=== PATIENT | female | born 1945 | race Caucasian/White ===

== ENCOUNTER 2020-02-24 15:16 | Emergency (ER) | payer MEDICARE, BC, SELFPAY ==
--- NOTE | 2020-02-24 15:21 | ED.GENADULT ---
HPI - General Adult General Chief complaint: Skin/Abscess/Foreign Body Stated complaint: rash Time Seen by Provider: 02/24/20 15:39 Source: patient Mode of arrival: ambulatory Limitations: no limitations History of Present Illness HPI narrative: 74-year-old female patient presents to the [facility] with complaints of a rash to the right side of her neck for the past 4 to 5 days. Patient states it is itchy. Patient states she has been out working in her yard a lot lately. Patient states that she does have some 2.5% cortisone cream that her doctor has prescribed her in the past that she has used patient states she also tried some Benadryl yesterday but it did make her very sleepy. Patient denies any fevers. Patient denies any pain to the site. Patient denies any blisters. Patient denies any chest pain, shortness of breath, swelling to the lips tongue or face. Patient denies any trouble swallowing. Related Data Home Medications Medication Instructions Recorded Confirmed cetirizine 10 mg tablet See Rx Instructions PO DAILY 11/25/19 cholecalciferol (vitamin D3) 50 2,000 unit PO DAILY 11/25/19 mcg (2,000 unit) capsule cromolyn 5.2 mg/spray (4 %) nasal See Rx Instructions .ROUTE .COMPLEX 11/25/19 spray fluticasone propionate 50 See Rx Instructions .ROUTE .COMPLEX 11/25/19 mcg/actuation nasal spray,suspension levothyroxine 75 mcg capsule 75 mcg PO DAILY 01/05/20 azelastine INTRANASAL 02/24/20 fluticasone furoate [Arnuity INHALATION 02/24/20 Ellipta] Allergies Allergy/AdvReac Type Severity Reaction Status Date / Time Cephalosporins Allergy Severe RASH Unverified 08/04/19 11:20 diclofenac Allergy Severe NAUSEA AND Unverified 08/04/19 11:20 VOMITING Penicillins Allergy Severe HIVES Unverified 08/04/19 11:20 azithromycin Allergy Unknown Unknown Verified 08/04/19 11:20 rifampin Allergy Unknown Hives Verified 08/04/19 11:20 Animal Dander Allergy Unknown Unknown Uncoded 08/04/19 11:20 AVALOX Allergy Unknown UNKNOWN Uncoded 08/04/19 11:20 DUST MITES Allergy Unknown Unknown Uncoded 08/04/19 11:20 Review of Systems Review of Systems: Narrative: CONSTITUTIONAL: Denies fever, chills, or sweats. EYES: Denies visual changes, redness, or discharge. ENT: Denies rhinorrhea, congestion, sore throat, or otalgia. CARDIOVASCULAR: Denies chest pain, palpitations, or edema. RESPIRATORY: Denies cough or dyspnea. GASTROINTESTINAL: Denies abdominal pain, nausea, vomiting, or diarrhea. GENITOURINARY: Denies dysuria or hematuria. SKIN: Positive rash with itching to right side of neck x4 to 5 days. MUSCULOSKELETAL: Denies back pain, joint pain, or myalgia. NEUROLOGIC: Denies headache, numbness, or weakness. PSYCHIATRIC: Denies anxiety or depression. [facility] Past Medical History Medical History Arthritis Diverticulitis Diverticulosis GERD (gastroesophageal reflux disease) Hypothyroid Right rotator cuff tear Tear of medial meniscus of left knee Surgical History Surgical History S/P right rotator cuff repair Status post breast reduction Family History Family History Father Family history of cardiovascular disease, Onset Age: 80 Social History Social History Smoking status: Never smoker Alcohol intake: current Gender identity (if verbalized by the patient): Female Comments At the time of my signature I agree with nursing past medical history, surgical, social, and family history. There is no relevant family history pertinent to the presenting complaint. Exam Narrative: Exam Narrative: GENERAL: Well-appearing, well-nourished, and in no acute distress. HEAD: Normocephalic, atraumatic. EYES: PERRLA and EOMI. ENT: Nares clear, no rhinorrhea or epistaxis. Mucous membranes moist. Pos
[2020-02-24 15:29] VITALS: BP 145/70; PULSE 78; RESP 18; TEMP 36.8; O2SAT 100
== END 2020-02-24 15:48 | disposition home or self-care (01) ==
PROVIDERS: Emergency Provider Nurse Practitioner Family; PCP Emergency Medicine
DX: S10.96XA Insect bite of unspecified part of neck, initial encounter (principal); L25.9 Unspecified contact dermatitis, unspecified cause; E03.9 Hypothyroidism, unspecified; W57.XXXA Bitten or stung by nonvenomous insect and other nonvenomous arthropods, initial encounter; K21.9 Gastro-esophageal reflux disease without esophagitis
CPT/HCPCS: 99211; G0463

== ENCOUNTER 2020-03-26 00:17 | Outpatient (CLI) | payer MEDICARE, BC, SELFPAY ==
[2020-03-26 20:58] LABS: SARS-CoV-2 RNA PCR Negative
== END 2020-03-26 00:18 | disposition home or self-care (01) ==
LOC: ANHCOVIDDT 00:17
PROVIDERS: PCP Emergency Medicine; Visit Provider Otolaryngology
DX: Z01.812 Encounter for preprocedural laboratory examination (principal); Z11.59 Encounter for screening for other viral diseases
CPT/HCPCS: 87635; 93005; C9803; U0003

== ENCOUNTER 2020-03-26 09:18 | Outpatient (CLI) | payer MEDICARE, BC, SELFPAY ==
--- NOTE | 2020-03-26 09:44 | ECG_ITS ---
Measurements Intervals Chapman Rate: 79 P: 76 MN: 181 QRS: 42 QRSD: 96 T: 62 QT: 371 QTc: 426 Interpretive Statements SINUS RHYTHM ATRIAL PREMATURE COMPLEX INCOMPLETE RIGHT BUNDLE BRANCH BLOCK LOW QRS VOLTAGE IN LIMB LEADS BASELINE ARTIFACT- II, III, AVL, AVF BORDERLINE ECG Electronically Signed On 03-26-2020 10:19:54 CDT by Venkata Lopez D.O.
== END 2020-03-26 09:19 | disposition home or self-care (01) ==
PROVIDERS: PCP Registered Nurse; Visit Provider Anesthesiology
DX: I10 Essential (primary) hypertension (principal); I45.10 Unspecified right bundle-branch block
CPT/HCPCS: 93005

== ENCOUNTER 2020-03-29 01:18 | Day surgery (SDC) | payer MEDICARE, BC, SELFPAY ==
[2020-03-24 15:51] VITALS: BMI 26.6
--- NOTE | 2020-03-28 16:10 | WPDANESEPP ---
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 Patient Data Age: 74 Gender: F Height: 1.47 m Weight: 57.7 kg Allergies Allergy/AdvReac Type Severity Reaction Status Date / Time Cephalosporins Allergy Severe RASH Unverified 03/24/20 15:33 diclofenac Allergy Severe NAUSEA AND Unverified 03/24/20 15:33 VOMITING Penicillins Allergy Severe HIVES Unverified 03/24/20 15:33 azithromycin Allergy Unknown Rash Verified 03/24/20 15:33 rifampin Allergy Unknown Hives Verified 03/24/20 15:33 Animal Dander Allergy Unknown Sneezing Uncoded 03/24/20 15:33 AVALOX Allergy Unknown Rash Uncoded 03/24/20 15:33 DUST MITES Allergy Unknown Sneezing Uncoded 03/24/20 15:33 Home Medications Medication Instructions Recorded Confirmed Type levothyroxine 75 mcg capsule 75 mcg PO DAILY 01/05/20 03/24/20 History Xyzal 1 tab-cap PRN PRN 02/24/20 03/24/20 History fluticasone furoate [Arnuity 2 inh INHALATION DAILY 02/24/20 03/24/20 History Ellipta] lisinopril 10 mg PO DAILY 03/24/20 03/24/20 History omeprazole 40 mg PO DAILY 03/24/20 03/24/20 History psyllium husk [Metamucil] 1 tbsp PO DAILY 03/24/20 03/24/20 History Patient hx anesthesia problems: none Family hx anesthesia problems: none PMFSH Past Medical History Medical History Arthritis Diverticulitis Diverticulosis GERD (gastroesophageal reflux disease) Hypothyroid Right rotator cuff tear Tear of medial meniscus of left knee Surgical History Surgical History History of hysterectomy S/P right rotator cuff repair Status post breast reduction Family History Family History Father Family history of cardiovascular disease, Onset Age: 80 Social History Social History Smoking status: Never smoker Alcohol intake: current Gender identity (if verbalized by the patient): Female Exam Day of Procedure 03/28/20 16:10
[2020-03-29] VITALS (8 sets, daily range): BP systolic 97–163; BP diastolic 43–75; PULSE 57–79; RESP 14–18; TEMP 35.9–36.1; O2SAT 97–100
--- NOTE | 2020-03-29 06:55 | WPDANESEPPF ---
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 Patient Data Age: 74 Gender: F Height: 4 ft 10 in Weight: 57.7 kg Allergies Allergy/AdvReac Type Severity Reaction Status Date / Time Cephalosporins Allergy Severe RASH Unverified 03/24/20 15:33 diclofenac Allergy Severe NAUSEA AND Unverified 03/24/20 15:33 VOMITING Penicillins Allergy Severe HIVES Unverified 03/24/20 15:33 azithromycin Allergy Unknown Rash Verified 03/24/20 15:33 moxifloxacin [From Avelox] Allergy Unknown Rash Verified 03/29/20 06:53 rifampin Allergy Unknown Hives Verified 03/24/20 15:33 Animal Dander Allergy Unknown Sneezing Uncoded 03/24/20 15:33 DUST MITES Allergy Unknown Sneezing Uncoded 03/24/20 15:33 Home Medications Medication Instructions Recorded Confirmed Type levothyroxine 75 mcg capsule 75 mcg PO DAILY 01/05/20 03/24/20 History Xyzal 1 tab-cap PRN PRN 02/24/20 03/24/20 History fluticasone furoate [Arnuity 2 inh INHALATION DAILY 02/24/20 03/24/20 History Ellipta] lisinopril 10 mg PO DAILY 03/24/20 03/24/20 History omeprazole 40 mg PO DAILY 03/24/20 03/24/20 History psyllium husk [Metamucil] 1 tbsp PO DAILY 03/24/20 03/24/20 History Patient hx anesthesia problems: none Family hx anesthesia problems: none PMFSH Past Medical History Medical History Arthritis Diverticulitis Diverticulosis GERD (gastroesophageal reflux disease) Hypothyroid Right rotator cuff tear Tear of medial meniscus of left knee Surgical History Surgical History History of hysterectomy S/P right rotator cuff repair Status post breast reduction Family History Family History Father Family history of cardiovascular disease, Onset Age: 80 Social History Social History Smoking status: Never smoker Alcohol intake: current Gender identity (if verbalized by the patient): Female Anes - Eval Final PreProcedure Day of Procedure 03/29/20 06:55 Patient weight: overweight Heart: regular rate and rhythm Lungs: clear to auscultation Airway: Mallampati scale class II Neurological: alert and oriented Last oral intake: >/= 8 hours ASA classification: III Emergent: no Anesthetic plan: proceed Anesthesia type and monitoring: general ETT and standard monitoring Informed Consent: The patient's anesthetic plan and its attendant risks and benefits were discussed with the patient/family/POA. Questions were solicited and answers provided to the satisfaction of the patient/family/POA.
--- NOTE | 2020-03-29 07:20 | WPDHPUPDATE1 ---
History and Physical Update Update Date/Time: 03/29/20 07:20 History and Physical has been reviewed, including an updated exam of the patient. There are NO changes in the patient's condition. Risks, benefits, and alternatives have been discussed and questions answered. Patient agrees to proceed with procedure.
--- NOTE | 2020-03-29 07:55 | PM.PROC ---
Procedure Note - Detailed Date of procedure: 03/29/20 Pre-op diagnosis: Neoplasm Of The Tongue Post-op diagnosis: same Procedure performed: Direct laryngoscopy with biopsy Description of procedure: After consent was obtained, patient was brought to the OR and placed under GETA. Timeout performed verifying correct pt identity and procedure. Bed rotated 90 degrees and she was draped in standard fashion. An upper tooth guard was placed. A dido laryngoscope was inserted and the full upper airway was visualized and examined. The cystic lesion was seen at the right lateral oropharyngeal wall, just inferior to the tonsil. No other lesions noted. Approximate 1.5cm in diameter. The cyst was grasped, retracted laterally and scissors used to undermine and cut it away from surrounding tissue. Minimal bleeding. Once specimen removed in its entireity, care of patient returned to anesthesia for extubation and transfer to PACU for recovery. No complications. Anesthesia: GETA Surgeon: Eliu Mandujano MD Software Engineering Supervisor: 5 Drains: No Packing: No Pathology: yes (right oropharyngeal lesion) Complications: No immediate complications Condition: stable Disposition: same day Findings: 1.5cm cystic right oropharyngeal mass just inferior to tonsil
[2020-03-29] MEDS: LACTATED RINGERS 1,000 ML 30 ML IV CONT (07:59)
== END 2020-03-29 09:55 | disposition home or self-care (01) ==
PROVIDERS: PCP Registered Nurse; Visit Provider Otolaryngology
PROC: 0CJS8ZZ Inspection of Larynx, Via Natural or Artificial Opening Endoscopic (ICD-10-PCS; CPT 31535; principal; 2020-03-29 07:30)
DX: K13.79 Other lesions of oral mucosa (principal); E03.9 Hypothyroidism, unspecified; K21.9 Gastro-esophageal reflux disease without esophagitis; M19.90 Unspecified osteoarthritis, unspecified site
CPT/HCPCS: 31535; 88305; A9270; J0330; J2590; J2704; J3010; J7120

== ENCOUNTER 2020-05-05 11:12 | Outpatient (CLI) | payer MEDICARE, BC, SELFPAY ==
--- NOTE | ~2020-05-05 | US_ITS ---
EXAMINATION: US thyroid EXAM DATE: 05/05/2020 11:47 INDICATION: Enlarged thyroid. TECHNIQUE: Multiple grayscale and Doppler images of the thyroid were obtained (by a technologist who performed the scan) and subsequently reviewed. Individual nodules and recommendations may be reporte d in accordance with TI-RADS system as designated by the 2017 ACR White Paper TI-RADS committee. The re is no prior study for comparison. FINDINGS: The right thyroid lobe measures 2.0 x 0.5 x 0.9 cm, the left thyroid lobe measures 1.8 x 0.5 x 0.8 cm with homogeneous echogenicity. No focal nodule identified. IMPRESSION: Small thyroid. Reviewed, dictated and finalized at location A. IMPRESSION: Small thyroid.
== END 2020-05-05 11:13 | disposition home or self-care (01) ==
LOC: ANHIMG 11:21
PROVIDERS: PCP Registered Nurse; Visit Provider Registered Nurse
DX: E04.9 Nontoxic goiter, unspecified (principal)
CPT/HCPCS: 76536

== ENCOUNTER 2020-05-08 16:30 | Emergency (ER) | payer MEDICARE, BC, SELFPAY ==
[2020-05-08 16:43] VITALS: BP 148/86; PULSE 86; RESP 18; TEMP 36.9; O2SAT 99
--- NOTE | 2020-05-08 16:51 | ED.EYEPROB ---
HPI - Eye Problem General Chief complaint: Eye Problems Stated complaint: eye problems Time Seen by Provider: 05/08/20 16:51 Source: patient Mode of arrival: ambulatory Limitations: no limitations History of Present Illness HPI Narrative: Gauri Bill is a 74 yo female with a PMH of hypothyroid, HTN, GERD, who comes to express care for concern of scratch of L eye. Blackberry branch hit her in the eye yesterday and although she has no pain redness or discharge read on the Internet that could get infected and cause problems particular since she is had cataract surgery patient is here to get antibiotic for her eyes until she can get into see her musculoskeletal physiotherapist on Sunday or Sunday Related Data Home Medications Medication Instructions Recorded Confirmed Xyzal 1 tab-cap PRN PRN 02/24/20 03/29/20 Metamucil 1 tbsp PO DAILY 03/24/20 03/29/20 lisinopril 10 mg PO DAILY 03/24/20 03/29/20 omeprazole 40 mg PO DAILY 03/24/20 03/29/20 cholecalciferol (vitamin D3) 25 mcg PO DAILY 05/08/20 05/08/20 [Vitamin D3] fluticasone propionate [Flonase INTRANASAL 05/08/20 Allergy Relief] levothyroxine 05/08/20 omeprazole 40 mg PO DAILY 05/08/20 05/08/20 Allergies Allergy/AdvReac Type Severity Reaction Status Date / Time Cephalosporins Allergy Severe RASH Verified 05/08/20 16:47 diclofenac Allergy Severe NAUSEA AND Verified 05/08/20 16:47 VOMITING Penicillins Allergy Severe HIVES Verified 05/08/20 16:47 azithromycin Allergy Unknown Rash Verified 05/08/20 16:47 moxifloxacin [From Avelox] Allergy Unknown Rash Verified 05/08/20 16:47 rifampin Allergy Unknown Hives Verified 05/08/20 16:47 Animal Dander Allergy Unknown Sneezing Uncoded 05/08/20 16:47 DUST MITES Allergy Unknown Sneezing Uncoded 05/08/20 16:47 Review of Systems Review of Systems: Narrative: CONSTITUTIONAL: Denies fever, chills, sweats. EYES: Denies visual changes, redness, discharge. There is no redness pain or discharge but concern by patient about her prior cataract surgery ENT: Denies rhinorrhea, congestion, sore throat, otalgia. CARDIOVASCULAR: Denies chest pain, palpitations, edema. RESPIRATORY: Denies dyspnea, wheezing, cough GASTROINTESTINAL: Denies abdominal pain, nausea, vomiting, diarrhea. GENITOURINARY: Denies dysuria, hematuria, abnormal discharge SKIN: Denies rash or itching. NEUROLOGIC: Denies numbness, or focal weakness. PSYCHIATRIC: Denies anxiety or depression. [facility] Past Medical History Medical History Arthritis Diverticulitis Diverticulosis GERD (gastroesophageal reflux disease) Hypothyroid Right rotator cuff tear Tear of medial meniscus of left knee Surgical History Surgical History History of hysterectomy S/P right rotator cuff repair Status post breast reduction Family History Family History Father Family history of cardiovascular disease, Onset Age: 80 Social History Social History Smoking status: Never smoker Alcohol intake: current Gender identity (if verbalized by the patient): Female Comments At time of signature, I agree with nursing past medical, surgical, social and family history. There is no relevant family history pertinent to the presenting complaint. Exam Narrative: Exam Narrative: GENERAL: This is a well-nourished, well-developed patient, in mild distress. HEAD: normocephalic, atraumatic. EYES: PERRL. Sclera clear/white. Vision is grossly intact. No injection of the left eye no discharge noted, no photophobia EARS: External ears normal, Hearing grossly intact. NOSE: External nose normal without nasal discharge, nares without redness, no rhinorrhea. THROAT: Mucous membranes moist, NECK: Neck supple, CARDIOVASCULAR: Regular rate and rhythm without murmurs, gallops, or rubs. RESPIRAT
== END 2020-05-08 17:10 | disposition home or self-care (01) ==
PROVIDERS: Emergency Provider Nurse Practitioner; PCP Registered Nurse
DX: S05.92XA Unspecified injury of left eye and orbit, initial encounter (principal); W22.8XXA Striking against or struck by other objects, initial encounter; M19.90 Unspecified osteoarthritis, unspecified site; K21.9 Gastro-esophageal reflux disease without esophagitis; E03.9 Hypothyroidism, unspecified
CPT/HCPCS: 99213; A9270; G0463

== ENCOUNTER → 2020-05-24 10:10 | Outpatient (CLI) | payer MEDICARE, BC, SELFPAY ==
--- NOTE | ~2020-05-24 | DEXA_ITS ---
Bone Density Report Name: Gauri Bill Age: 74 Sex: Female Ethnicity: White Date of : 1945 Indication: osteopenia; height loss; hysterectomy; postmenopausal Referring Provider: Loraine, Kyleigh Study: Bone densitometry was performed. Exam Date: May 24, 2020 Accession number: [id number] Bone Density: Region BMD T-score Z-score Classification AP Spine (L2, L3, L4) 0.859 -2.0 0.6 Osteopenia Femoral Neck (Left) 0.652 -1.8 0.4 Osteopenia Total Hip (Left) 0.764 -1.5 0.4 Osteopenia Femoral Neck (Right) 0.674 -1.6 0.6 Osteopenia Total Hip (Right) 0.752 -1.6 0.3 Osteopenia Total Hip Mean 0.758 -1.6 0.4 Osteopenia World Health Organization criteria for BMD impression classify patients as: Normal (T-score at or above -1.0), Osteopenia (T-score between -1.0 and -2.5), or Osteoporosis (T-score at or below -2.5). 10-year Fracture Risk(1): Major Osteoporotic Fracture 13% Hip Fracture 3.1% Reported Risk Factors: [place] (), Neck BMD=0.652, BMI=25.6 (1) FRAX(R) Version 3.08. Fracture probability calculated for an untreated patient. Fracture probability may be lower if the patient has received treatment. Previous Exams: Region Exam Age BMD T-score BMD Change BMD Change Date g/cm2 vs Baseline vs Previous AP Spine(L2, L3, L4) 05/24/2020 74 0.859 -2.0 -0.003 -0.003 01/25/2018 72 0.862 -2.0 Total Hip(Left) 05/24/2020 74 0.764 -1.5 -0.022 -0.022 01/25/2018 72 0.786 -1.3 Total Hip(Right) 05/24/2020 74 0.752 -1.6 -0.034* -0.034* 01/25/2018 72 0.786 -1.3 *Denotes significance at 95% confidence level, LSC for AP Spine = 0.022 g/cm2, LSC for Total Hip = 0.027 g/cm2 Clinical Information Provided by Patient: Has used the following medications: Vitamin D Has the following medical conditions: Hysterectomy Patient maximum height was 61.5 Menopause Age: 44 No regular weight bearing exercise Drinks caffeinated beverages Onset of menses at age 12 Number of children 1 Impression: The patient has low bone mass, based on the Total Spine T-score. The patient has an estimated ten-year risk of hip fracture of 3.1% and an estimated ten-year risk of major fracture of 13%, based on the WHO FRAX algorithm. The BMD for the Total Hip(Right) decreased, changing by -0.034 since the last DXA exam. Discussion: BONE DENSITY IS LOW AT ONE OR MORE SKELETAL SITES. THE PATIENT'S BM
== END ==
PROVIDERS: PCP Registered Nurse; Visit Provider Registered Nurse
DX: Z78.0 Asymptomatic menopausal state (principal); M85.88 Other specified disorders of bone density and structure, other site; M85.852 Other specified disorders of bone density and structure, left thigh; M85.851 Other specified disorders of bone density and structure, right thigh
CPT/HCPCS: 77080

== ENCOUNTER 2020-07-13 09:30 | Outpatient (CLI) | payer MEDICARE, BC, SELFPAY ==
--- NOTE | ~2020-07-13 | MM_ITS ---
EXAMINATION: MM screening claudine BI w cristel HISTORY: Screening TECHNIQUE: Craniocaudal and mediolateral oblique 3-D tomosynthesis images were obtained and synthetic 2-D images were generated. CAD analysis was submitted and interpreted. COMPARISON: No prior mammogram is available for comparison at this institution. BREAST PARENCHYMAL COMPOSITION: There are scattered areas of fibroglandular density. FINDINGS: There is no evidence of suspicious mass, calcification, or architectural distortion to sugg est malignancy in either breast. There has been no suspicious interval change. IMPRESSION: 1. No mammographic evidence of malignancy. 2. Recommend routine screening mammography in one year. BI-RADS Category 1: Negative Reviewed, dictated and finalized at location A.
== END 2020-07-13 09:31 | disposition home or self-care (01) ==
LOC: ANHIMG 09:37
PROVIDERS: PCP Registered Nurse; Visit Provider Registered Nurse
DX: Z12.31 Encounter for screening mammogram for malignant neoplasm of breast (principal)
CPT/HCPCS: 77063; 77067

== ENCOUNTER 2020-08-21 11:43 | Outpatient (NON) | payer MEDICARE, BC, SELFPAY ==
[2020-08-22 22:24] LABS: SARS-CoV-2 RNA PCR Negative
== END 2020-08-21 11:44 ==
LOC: ANHCOVIDDT 11:45
PROVIDERS: PCP Registered Nurse; Visit Provider Registered Nurse
DX: R05 Cough (principal); J02.9 Acute pharyngitis, unspecified; R51.9 Headache, unspecified; R09.81 Nasal congestion; Z20.828 Contact with and (suspected) exposure to other viral communicable diseases
CPT/HCPCS: 87635; C9803; U0003

== ENCOUNTER 2022-01-16 07:34 | Outpatient (CLI) | payer MEDICARE, BC, SELFPAY ==
--- NOTE | ~2022-01-16 | CT_ITS ---
EXAMINATION: CT abdomen pelvis w con DATE: 01/16/2022 08:27 INDICATION: Left lower quadrant abdominal pain. Diverticulosis. TECHNIQUE: Computed tomography (CT) of the abdomen and pelvis was performed with 100 mL Omnipaque-350 intravenous contrast. Automated exposure control and iterative reconstruction technique were employe d. The dose-length product was 336.52 mGy-cm. COMPARISON: 08/04/2019 FINDINGS: Lung bases are clear. Heart size is normal. No pericardial or pleural effusion. Liver, gallbladder, p ancreas, bilateral adrenal glands and kidneys are normal. Multiple splenic calcific lesions consisten t with old granulomatous disease. There is moderate colonic diverticulosis with sigmoid and descendin g colon predominance. There appear to be a few foci of gas within the fat along the margins of the di verticulum at the distal sigmoid colon and could not exclude diverticulitis with microperforation alt zac there is no significant surrounding inflammatory stranding to more specifically suggest this. N ormal appendix. No bowel obstruction. Bladder is normal. The uterus is not identified and has likely been surgically resected. No abscess or free intraperitoneal gas or fluid. No pathologically enlarged abdominal or pelvic lymphadenopathy. Lumbar levoscoliosis with severe spondylosis. IMPRESSION: 1. Moderate diverticulosis with possible diverticulitis with minimal potentially extraluminal gas rel ated to microperforation along a diverticulum at the distal sigmoid colon but without evident inflamm atory stranding or abscess. Reviewed, dictated and finalized at location A. IMPRESSION: 1. Moderate diverticulosis with possible diverticulitis with minimal potentiall y extraluminal gas related to microperforation along a diverticulum at the dist al sigmoid colon but without evident inflammatory stranding or abscess.
[2022-01-16 08:19] LABS: Estimated Glomerular Filt Rate > 60
== END 2022-01-16 07:35 | disposition home or self-care (01) ==
PROVIDERS: PCP Registered Nurse; Visit Provider Registered Nurse
DX: R10.32 Left lower quadrant pain (principal); K57.90 Diverticulosis of intestine, part unspecified, without perforation or abscess without bleeding; D73.9 Disease of spleen, unspecified; K57.30 Diverticulosis of large intestine without perforation or abscess without bleeding; M47.816 Spondylosis without myelopathy or radiculopathy, lumbar region; M41.9 Scoliosis, unspecified
CPT/HCPCS: 74177; Q9967

== ENCOUNTER 2022-03-24 14:56 | Emergency (ER) | payer MEDICARE, BC, SELFPAY ==
--- NOTE | ~2022-03-24 | XR_ITS ---
XR chest 2V DATE: 03/24/2022 15:31 INDICATION: Cough for 10 days TECHNIQUE: 2 views COMPARISON: 03/05/2012 two-view chest FINDINGS: Normal heart size. No hilar or mediastinal enlargement. 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 No pulmonary infiltrate or consolidation, pleural effusion or pulmonary vascular congestion or pneumo thorax. Diffuse osteopenia. IMPRESSION: No active cardiopulmonary disease Reviewed, dictated and finalized at location A.
[2022-03-24 15:05] VITALS: BP 154/65; PULSE 79; RESP 18; TEMP 37.4; O2SAT 100
--- NOTE | 2022-03-24 15:13 | ED.URI ---
HPI - URI/Sore Throat General Chief Complaint: Upper Respiratory Infection Stated Complaint: uri Time Seen by Provider: 03/24/22 15:13 Source: patient, RN notes reviewed and old records reviewed Mode of arrival: ambulatory Limitations: no limitations History of Present Illness HPI Narrative: 76-year-old female presents to the [facility] with complaints of an upper respiratory infection. Patient reports she has had a cough for the last 10 days. Has been taking Zyrtec and Tylenol. Denies fevers. Denies chest pain or extremity swelling. Related Data Home Medications Medication Instructions Recorded Confirmed psyllium husk 3.4 gram/5.4 gram 1 tbsp PO BID 03/24/20 03/24/22 oral powder (Metamucil) cholecalciferol (vitamin D3) 25 25 mcg PO DAILY 05/08/20 03/24/22 mcg (1,000 unit) tablet (Vitamin D3) levothyroxine 50 mcg tablet 50 mcg PO DAILY 05/08/20 03/24/22 azelastine-fluticasone 137 mcg-50 1 spray intranasal BID 02/21/22 03/24/22 mcg/spray nasal spray cetirizine 10 mg tablet (Zyrtec) 10 mg PO DAILY PRN allergies 02/21/22 03/24/22 multivitamin 1 tablet PO DAILY 02/21/22 03/24/22 losartan 25 mg tablet 25 mg PO DAILY 03/06/22 03/24/22 Allergies Allergy/AdvReac Type Severity Reaction Status Date / Time Cephalosporins Allergy Severe RASH Verified 02/21/22 10:03 azithromycin Allergy Unknown Rash Verified 02/21/22 10:03 rifampin Allergy Unknown Hives Verified 02/21/22 10:03 metronidazole AdvReac Diarrhea Verified 03/06/22 13:43 Animal Dander Allergy Unknown Sneezing Uncoded 05/08/20 16:47 DUST MITES Allergy Unknown Sneezing Uncoded 05/08/20 16:47 Review of Systems Review of Systems: All systems reviewed & are unremarkable except as noted in HPI and below Constitutional: Constitutional: Reports no additional constitutional complaints, Denies chills and Denies fever(s) Eyes: Eyes: Reports no additional eye complaints ENT: Reports system reviewed and no additional complaints, except as documented Cardiovascular: Cardiovascular: Reports no additional cardiovascular complaints Respiratory: Respiratory: Reports as per HPI, Reports chest congestion, Reports cough, Denies dyspnea and Denies wheezing Gastrointestinal: Gastrointestinal: Reports no additional gastrointestinal complaints Musculoskeletal: Musculoskeletal: Reports no additional musculoskeletal complaints Integumentary/Breasts: Skin/Breast: Reports system reviewed and no additional complaints, except as docu Neurologic: Reports system reviewed and no additional complaints, except as documented Psychiatric: Psychiatric: Reports no additional psychiatric complaints Allergic/Immunologic: Allergic/Immunologic: Reports no additional allergic/immunologic complaints PMFSH Past Medical History Medical History Arthritis Diverticulitis Diverticulosis GERD (gastroesophageal reflux disease) Hypothyroid Right rotator cuff tear Tear of medial meniscus of left knee Surgical History Surgical History History of hysterectomy S/P right rotator cuff repair Status post breast reduction Family History Family History Father Family history of cardiovascular disease, Onset Age: 80 Social History Social History Smoking status: Never smoker Alcohol intake: current Drinks per week: 1 Substance use: never Gender identity (if verbalized by the patient): Female Spiritual care concerns: No Comments At the time of my signature, I reviewed and agree with the nursing past medical, surgical, social, and family history. There is no relevant family history pertinent to the patient complaint. Exam Const: General: healthy appearing, no acute distress and alert Nutritional Appearance: well nourished Orientation/consciousness: [place]
== END 2022-03-24 16:03 | disposition home or self-care (01) ==
PROVIDERS: Emergency Provider Nurse Practitioner; PCP Registered Nurse
DX: J40 Bronchitis, not specified as acute or chronic (principal); M19.90 Unspecified osteoarthritis, unspecified site; K21.9 Gastro-esophageal reflux disease without esophagitis; E03.9 Hypothyroidism, unspecified
CPT/HCPCS: 71046; 99213; G0463

== ENCOUNTER 2022-09-20 09:51 | Outpatient (CLI) | payer MEDICARE, BC, SELFPAY ==
--- NOTE | ~2022-09-20 | DEXA_ITS ---
Bone Density Report Name: CHAD JAMES Age: 77 Sex: Female Ethnicity: White Date of : 1945 Indication: postmenopausal; screening for osteoporosis; height loss; hysterectomy; rheumatoid arthritis; Referring Provider: NEAL, ANUPAM Study: Bone densitometry was performed. Exam Date: September 20, 2022 Accession number: [id number] Bone Density: Region BMD T-score Z-score Classification AP Spine(L2, L3, L4) 0.824 -2.3 0.4 Osteopenia Femoral Neck (Left) 0.299 -5.0 -2.7 Osteoporosis Total Hip (Left) 0.391 -4.5 -2.5 Osteoporosis Femoral Neck (Right) 0.698 -1.4 0.9 Osteopenia Total Hip (Right) 0.751 -1.6 0.4 Osteopenia Total Hip Mean 0.571 -3.1 -1.1 Osteoporosis World Health Organization criteria for BMD impression classify patients as: Normal (T-score at or above -1.0), Osteopenia (T-score between -1.0 and -2.5), or Osteoporosis (T-score at or below -2.5). 10-year Fracture Risk: FRAX not reported because: Some T-score for Spine Total or Hip Total or Femoral Neck at or below -2.5 Clinical Information Provided by Patient: Has rheumatoid arthritis Has used the following medications: Vitamin D, Calcium Has the following medical conditions: Hysterectomy Patient maximum height was 61 Menopause Age: 46 Drinks caffeinated beverages Onset of menses at age 10 Number of children 1 Impression: The patient has osteoporosis, based on the Left Femoral Neck T-score. Discussion: HIGH RISK OF FRACTURE. BONE DENSITY IS UNDESIRABLY LOW AT ONE OR MORE SKELETAL SITES, CONSISTENT WITH OSTEOPOROSIS. ALSO, BONE DENSITY IS LOWER THAN EXPECTED FOR AGE AND SEX AT ONE OR MORE SKELETAL SITES; RECOMMEND A DILIGENT SEARCH FOR SECONDARY CAUSES OF BONE LOSS. This patient's lowest T-score meets the World Health Organization's (WHO) criteria for osteoporosis at one or more sites (T-score -2.5 or below). In untreated patients, the risk of osteoporotic fracture increases approximately two-fold for each 1.0 SD decrease in T-score. Low bone density is not the only risk factor for fracture; also consider factors such as patient's age, frailty or poor health, risk of falling, risk of injury, previous osteoporotic fracture, family history of osteoporosis, cigarette smoking, low body weight, etc. Not everyone with low bone mineral density has osteoporosis; osteomalacia and other metabolic bone disorders should also be considered. Patients who have osteoporosis should be evaluated for specific diseases and conditions (secondary causes) that may cause or contribute to bone loss. The [place] [employer]ocrin[employer] (AACE) and National Osteoporosis Foundation (NOF) recommend pharmacologic intervention for all postmenopausal women whose T-score is in this range. Also, this patient's bone mineral density is below the range co
== END 2022-09-20 09:52 | disposition home or self-care (01) ==
LOC: ANHIMG 09:55
PROVIDERS: PCP Registered Nurse; Visit Provider Registered Nurse
DX: M85.88 Other specified disorders of bone density and structure, other site (principal); M81.0 Age-related osteoporosis without current pathological fracture; M85.851 Other specified disorders of bone density and structure, right thigh
CPT/HCPCS: 77080

== ENCOUNTER → 2022-09-21 11:05 | Outpatient (CLI) | payer MEDICARE, BC, SELFPAY ==
--- NOTE | ~2022-09-21 | MR_ITS ---
EXAMINATION: MR knee RT wo con DATE: 09/21/2022 11:48 INDICATION: Right knee pain TECHNIQUE: Magnetic resonance imaging (MRI) of the right knee was performed without intravenous contr ast. Sequences included coronal PD-weighted FSE, coronal PD-weighted FS FSE, sagittal T2-weighted FS E, sagittal PD-weighted FS FSE and axial PD weighted fat saturated FSE. COMPARISON: None. FINDINGS: Medial compartment: Medial meniscus is normal. Articular cartilage is normal. Lateral compartment: Longitudinal horizontal tear extending to the free edge at the body of the lateral meniscus. Addition al small complex tear at the medial side of the posterior horn. Articular cartilage is normal. Patellofemoral compartment: Articular cartilage is normal. Ligaments and tendons: Anterior and posterior cruciate ligaments are normal. The medial collateral ligament and fibular jeremy ateral ligament complex are normal. The extensor mechanism is normal. The visualized medial and later al hamstring tendons as well as the iliotibial band are normal. There is however mild increased fluid signal the fat situated between the iliotibial band and the lateral margin of the lateral femoral co ndyle which can be seen with iliotibial band friction syndrome. Fluid: Physiologic amount of fluid in the joint space. No loose osteochondral bodies identified. Osseous/other: Normal marrow signal. No fracture or pathologic marrow replacing process. IMPRESSION: 1. Lateral meniscal tear, horizontal at the body and complex at the medial side of the posterior horn . 2. Edema underlying the distal iliotibial band which can be seen with iliotibial band friction syndro me. Reviewed, dictated and finalized at location [facility] [employer] IMPRESSION: 1. Lateral meniscal tear, horizontal at the body and complex at the medial side of the posterior horn. 2. Edema underlying the distal iliotibial band which can be seen with iliotibia l band friction syndrome.
== END ==
PROVIDERS: PCP Registered Nurse; Visit Provider Orthopaedic Surgery
DX: S83.281A Other tear of lateral meniscus, current injury, right knee, initial encounter (principal); S83.231A Complex tear of medial meniscus, current injury, right knee, initial encounter; X58.XXXA Exposure to other specified factors, initial encounter
CPT/HCPCS: 73721

== ENCOUNTER 2023-03-28 09:31 | Emergency (ER) | payer MEDICARE, BC, SELFPAY ==
--- NOTE | 2023-03-28 09:36 | ED.EYEPROB ---
HPI - Eye Problem General Chief complaint: Eye Problems Stated complaint: Left eye injury Time Seen by Provider: 03/28/23 09:56 Source: patient and RN notes reviewed Mode of arrival: ambulatory Limitations: no limitations History of Present Illness HPI Narrative: 77-year-old female presents with concern to injury of her left eye. Reports on Sunday she got poked in the eye with a plan to when she was working in the yd. She reports pain, redness, watery drainage. She denies vision changes. She reports slight redness. Reports pain is currently a 5/10, it was less this morning. chief complaint: eye pain Related Data Home Medications Medication Instructions Recorded Confirmed levothyroxine 50 mcg tablet 50 mcg PO DAILY 05/08/20 03/28/23 cetirizine 10 mg tablet (Zyrtec) 10 mg PO DAILY PRN allergies 02/21/22 03/28/23 multivitamin 1 tablet PO DAILY 02/21/22 03/28/23 losartan 25 mg tablet 25 mg PO DAILY 03/06/22 03/28/23 alendronate 70 mg tablet 70 mg PO WEEKLY 11/02/22 03/28/23 calcium carbonate 600 mg calcium 600 mg PO BID 11/02/22 03/28/23 (1,500 mg) tablet (Calcium) wjkrhjrd-lao-gbyqa acid 0.4 1 tablet PO DAILY 11/02/22 03/28/23 mg-lycopene 300 mcg-lutein 250 mcg tablet (Centrum Silver) Allergies Allergy/AdvReac Type Severity Reaction Status Date / Time Cephalosporins Allergy Severe RASH Verified 11/02/22 15:17 moxifloxacin [From Avelox] Allergy Mild Unknown Verified 11/02/22 15:17 azithromycin Allergy Unknown Rash Verified 11/02/22 15:17 rifampin Allergy Unknown Hives Verified 11/02/22 15:17 metronidazole AdvReac Diarrhea Verified 11/02/22 15:17 Animal Dander Allergy Unknown Sneezing Uncoded 11/02/22 15:17 DUST MITES Allergy Unknown Sneezing Uncoded 11/02/22 15:17 Review of Systems Review of Systems: CONSTITUTIONAL: Denies malaise, chills, sweats, or fever. EYES: Denies visual changes. Reports left eye redness, pain, discharge. ENT: Denies rhinorrhea, congestion, sinus pain, otalgia or sore throat. SKIN: Denies rash or itching. NEUROLOGIC: Denies numbness, weakness, or headache. PSYCHIATRIC: Denies anxiety or depression. All systems reviewed & are unremarkable except as noted in HPI and below [facility] Past Medical History Medical History (Updated 03/28/23 @ 10:03 by Teagan Hurtado NP) Arthritis Arthritis of left knee Diverticulitis Diverticulosis GERD (gastroesophageal reflux disease) History of stress test History of torn meniscus of left knee Hypertension Hypothyroid Right rotator cuff tear Tear of medial meniscus of left knee Tenosynovitis of wrist flexor Surgical History Surgical History (Updated 09/12/22 @ 15:12 by Liz Price MA) H/O carpal tunnel repair (~1993) H/O rhytidectomy (~2002) History of hysterectomy (~1991) Hx of cataract surgery (~2018) Hx of removal of cyst (~2020) from the throat S/P right rotator cuff repair Status post brachioplasty (~2007) Status post breast reduction (~2012) Family History Family History (Updated 09/12/22 @ 15:14 by Liz Price MA) Father Family history of cardiovascular disease, Onset Age: 80 Mother Diabetes mellitus Social History Social History Smoking status: Never smoker Alcohol intake: current Drinks per week: 1 Substance use: never Lack of Transportation: No Lack of Food: Never True Current Housing: I Have Housing Concerned About Future Housing: No Difficulty Paying Gas/Electric Bills: No Difficulty Paying for Meds: No Currently Unemployed: No Education: Bachelor's Degree Difficulty w/ Childcare or Family Care: No Living arrangements: with family Gender identity (if verbalized by the patient): Female Spiritual care concerns: No Comments At time of signature, agree with nursing past medical, surgical, social and family history. There is no relevant family history pertinent to the presenting complaint Exam Narrative:
[2023-03-28 09:46] VITALS: BP 154/78; PULSE 79; RESP 18; TEMP 36.7; O2SAT 100
== END 2023-03-28 10:07 | disposition home or self-care (01) ==
PROVIDERS: Emergency Provider Nurse Practitioner; PCP Registered Nurse
DX: S05.92XA Unspecified injury of left eye and orbit, initial encounter (principal); X58.XXXA Exposure to other specified factors, initial encounter; K21.9 Gastro-esophageal reflux disease without esophagitis; I10 Essential (primary) hypertension; E03.9 Hypothyroidism, unspecified
CPT/HCPCS: 99213; G0463

== ENCOUNTER 2023-04-01 09:49 | Emergency (ER) | payer MEDICARE, BC, SELFPAY ==
[2023-04-01 09:50] VITALS: BP 170/67; PULSE 80; RESP 18; TEMP 36.8; O2SAT 98
[2023-04-01] MEDS: FLUORESCEIN SOD 1 MG/STRIP EACH EYE (11:37)
[2023-04-01] MEDS: TETRACAINE HCL 0.5% OPHTH SOLN 4 ML BTL 1 DROP (11:37)
--- NOTE | 2023-04-01 13:44 | ED.EYEPROB ---
HPI - Eye Problem General Chief complaint: Eye Problems Stated complaint: left eye injury Time Seen by Provider: 04/01/23 11:13 Source: patient Mode of arrival: ambulatory Limitations: no limitations History of Present Illness HPI Narrative: Patient is a 77-year-old female who presents ED with report of left eye injury. Patient reports last Sunday she was working out in the yard and bent over to pick something up and felt like she was poked in the eye with a stick. She was seen at an urgent care on 03/28 and Rx'd Polytrim. She has been using this as prescribed. Patient was referred to ophthalmology for further evaluation. She reports she has an appointment on Sunday. Patient denies any vision changes. She c/o redness and tearing. She denies significant pain in her eye, but does report some discomfort to her outer lateral periorbital region. She took Aleve for this with some relief. Otherwise denies headache, dizziness/LH, N/V. Related Data Home Medications Medication Instructions Recorded Confirmed levothyroxine 50 mcg tablet 50 mcg PO DAILY 05/08/20 03/28/23 cetirizine 10 mg tablet (Zyrtec) 10 mg PO DAILY PRN allergies 02/21/22 03/28/23 multivitamin 1 tablet PO DAILY 02/21/22 03/28/23 losartan 25 mg tablet 25 mg PO DAILY 03/06/22 03/28/23 alendronate 70 mg tablet 70 mg PO WEEKLY 11/02/22 03/28/23 calcium carbonate 600 mg calcium 600 mg PO BID 11/02/22 03/28/23 (1,500 mg) tablet (Calcium) zbxgjrxy-mpi-xzilk acid 0.4 1 tablet PO DAILY 11/02/22 03/28/23 mg-lycopene 300 mcg-lutein 250 mcg tablet (Centrum Silver) Allergies Allergy/AdvReac Type Severity Reaction Status Date / Time Cephalosporins Allergy Severe RASH Verified 04/01/23 11:09 moxifloxacin [From Avelox] Allergy Mild Unknown Verified 04/01/23 11:09 azithromycin Allergy Unknown Rash Verified 04/01/23 11:09 rifampin Allergy Unknown Hives Verified 04/01/23 11:09 metronidazole AdvReac Diarrhea Verified 04/01/23 11:09 Animal Dander Allergy Unknown Sneezing Uncoded 11/02/22 15:17 DUST MITES Allergy Unknown Sneezing Uncoded 11/02/22 15:17 Review of Systems Review of Systems: CONSTITUTIONAL: Denies fever, chills, or sweats. EYES: See HPI. GASTROINTESTINAL: Denies abdominal pain, nausea, vomiting. NEUROLOGIC: Denies headache, numbness, or weakness. All systems reviewed & are unremarkable except as noted in HPI and below [facility] Past Medical History Medical History Arthritis Arthritis of left knee Diverticulitis Diverticulosis GERD (gastroesophageal reflux disease) History of stress test History of torn meniscus of left knee Hypertension Hypothyroid Right rotator cuff tear Tear of medial meniscus of left knee Tenosynovitis of wrist flexor Surgical History Surgical History H/O carpal tunnel repair (~1993) H/O rhytidectomy (~2002) History of hysterectomy (~1991) Hx of cataract surgery (~2018) Hx of removal of cyst (~2020) from the throat S/P right rotator cuff repair Status post brachioplasty (~2007) Status post breast reduction (~2012) Family History Family History (Updated 09/12/22 @ 15:14 by Liz Price MA) Father Family history of cardiovascular disease, Onset Age: 80 Mother Diabetes mellitus Social History Social History Smoking status: Never smoker Alcohol intake: current Drinks per week: 1 Substance use: never Lack of Transportation: No Lack of Food: Never True Current Housing: I Have Housing Concerned About Future Housing: No Difficulty Paying Gas/Electric Bills: No Difficulty Paying for Meds: No Currently Unemployed: No Education: Bachelor's Degree Difficulty w/ Childcare or Family Care: No Living arrangements: with family Gender identity (if verbalized by the patient): Female Spiritual care concerns: No
== END 2023-04-01 14:03 | disposition left against medical advice (07) ==
PROVIDERS: Emergency Provider Physician Assistant; PCP Registered Nurse
DX: S05.92XA Unspecified injury of left eye and orbit, initial encounter (principal); M19.90 Unspecified osteoarthritis, unspecified site; K21.9 Gastro-esophageal reflux disease without esophagitis; I10 Essential (primary) hypertension; E03.9 Hypothyroidism, unspecified; Y29.XXXA Contact with blunt object, undetermined intent, initial encounter
CPT/HCPCS: 99283

== ENCOUNTER 2024-04-05 12:07 | Emergency (ER) | payer MEDICARE, BC, SELFPAY ==
[2024-04-05 12:24] VITALS: BP 154/67; PULSE 71; RESP 20; TEMP 36.7; O2SAT 100
--- NOTE | 2024-04-05 12:43 | ED.URI ---
HPI - URI/Sore Throat General Chief Complaint: Upper Respiratory Infection Stated Complaint: cough Time Seen by Provider: 04/05/24 12:43 Source: patient Mode of arrival: ambulatory Limitations: no limitations History of Present Illness HPI Narrative: 78-year-old female presents with complaint of nasal congestion, postnasal drainage, dry cough,, sinus pain for 7 days. Reports fatigue, low-grade fever for the past 2 days. Patient states she gets allergy shots and takes daily antihistamine. Not taking any emen-yny-ssqlyuv cough suppressants. All systems reviewed and negative except as noted above. Related Data Home Medications Medication Instructions Recorded Confirmed levothyroxine 50 mcg tablet 50 mcg PO DAILY 05/08/20 04/05/24 cetirizine 10 mg tablet (Zyrtec) 10 mg PO DAILY PRN allergies 02/21/22 04/05/24 multivitamin 1 tablet PO DAILY 02/21/22 04/05/24 losartan 25 mg tablet 25 mg PO DAILY 03/06/22 04/05/24 alendronate 70 mg tablet 70 mg PO WEEKLY 11/02/22 04/05/24 calcium carbonate (Calcium 600) 600 mg PO BID 11/02/22 04/05/24 vafxjhoo-sqr-wujmn acid 0.4 1 tablet PO DAILY 11/02/22 04/05/24 mg-lycopene 300 mcg-lutein 250 mcg tablet (Centrum Silver) Allergies Allergy/AdvReac Type Severity Reaction Status Date / Time Cephalosporins Allergy Severe RASH Verified 04/05/24 12:09 moxifloxacin [From Avelox] Allergy Mild Unknown Verified 04/05/24 12:09 azithromycin Allergy Unknown Rash Verified 04/05/24 12:09 rifampin Allergy Unknown Hives Verified 04/05/24 12:09 metronidazole AdvReac Diarrhea Verified 04/05/24 12:09 Animal Dander Allergy Unknown Sneezing Uncoded 04/05/24 12:09 DUST MITES Allergy Unknown Sneezing Uncoded 04/05/24 12:09 Review of Systems Review of Systems: CONSTITUTIONAL: Denies fever, chills, or sweats. reports fatigue. EYES: Denies visual changes, redness, or discharge. ENT: Reports rhinorrhea, congestion, sore throat. Denies otalgia. CARDIOVASCULAR: Denies chest pain, palpitations, or edema. RESPIRATORY: reports cough. Denies dyspnea. GASTROINTESTINAL: Denies abdominal pain, nausea, vomiting, or diarrhea. GENITOURINARY: Denies dysuria or hematuria. SKIN: Denies rash or itching. MUSCULOSKELETAL: Denies back pain, joint pain, or myalgia. NEUROLOGIC: Denies headache, numbness, or weakness. PSYCHIATRIC: Denies anxiety or depression. All other systems reviewed are negative, except as documented in HPI. [facility] Past Medical History Medical History Arthritis Arthritis of left knee Diverticulitis Diverticulosis GERD (gastroesophageal reflux disease) History of stress test History of torn meniscus of left knee Hypertension Hypothyroid Right rotator cuff tear Tear of medial meniscus of left knee Tenosynovitis of wrist flexor Surgical History Surgical History H/O carpal tunnel repair (~1993) H/O rhytidectomy (~2002) History of hysterectomy (~1991) Hx of cataract surgery (~2018) Hx of removal of cyst (~2020) from the throat S/P right rotator cuff repair Status post brachioplasty (~2007) Status post breast reduction (~2012) Family History Family History (Updated 09/12/22 @ 15:14 by Liz Price MA) Father Family history of cardiovascular disease, Onset Age: 80 Mother Diabetes mellitus Social History Social History Smoking status: Never smoker Alcohol intake: current Drinks per week: 1 Substance use: never Lack of Transportation: No Lack of Food: Never True Current Housing: I Have Housing Concerned About Future Housing: No Difficulty Paying Gas/Electric Bills: No Difficulty Paying for Meds: No Currently Unemployed: No Education: Bachelor's Degree Difficulty w/ Childcare or Family Care: No Living arrangements: with family Gender identity (if verbalized by th
[2024-04-05 13:19] LABS: EDINFLUASCREEN Negative; EDINFLUBSCREEN Negative
== END 2024-04-05 12:58 | disposition home or self-care (01) ==
PROVIDERS: Emergency Provider Nurse Practitioner Family; PCP Registered Nurse
DX: J01.90 Acute sinusitis, unspecified (principal); Z20.822 Contact with and (suspected) exposure to COVID-19; M17.12 Unilateral primary osteoarthritis, left knee; J21.9 Acute bronchiolitis, unspecified; I10 Essential (primary) hypertension; E03.9 Hypothyroidism, unspecified
CPT/HCPCS: 87426; 87804; 99213; G0463

== ENCOUNTER 2025-04-25 13:49 | Emergency (ER) | payer MEDICARE, BC, SELFPAY ==
--- NOTE | 2025-04-25 13:58 | ED.GENADULT ---
HPI - General Adult General Chief complaint: Dizziness Stated complaint: high blood pressure Time Seen by Provider: 04/25/25 13:52 Source: patient Mode of arrival: ambulatory Limitations: no limitations History of Present Illness HPI narrative: Gauri is a 79 year old female patient presenting to the clinic today with c/o high blood pressure. She reports having headache, feeling off, and lightheadedness X3-4 days. Recently got back from a cruise one week ago. Was sea sick during the cruise. History of high blood pressure and she takes Losartan 25mg daily. B/P was 200/81 and 207/86 in the clinic. She denies any URI symptoms or fever. No visual changes, chest pain, or shortness of breath Related Data Home Medications ?Medication ?Instructions ?Recorded ?Confirmed ?Last Taken ?Type levothyroxine 50 mcg tablet 50 mcg PO DAILY 05/08/20 04/05/24 Unknown History cetirizine 10 mg tablet (Zyrtec) 10 mg PO DAILY PRN allergies 02/21/22 04/05/24 Unknown History multivitamin 1 tablet PO DAILY 02/21/22 04/05/24 Unknown History losartan 25 mg tablet 25 mg PO DAILY 03/06/22 04/05/24 Unknown History alendronate 70 mg tablet 70 mg PO WEEKLY 11/02/22 04/05/24 Unknown History calcium carbonate (Calcium 600) 600 mg PO BID 11/02/22 04/05/24 Unknown History ihwwllfi-zcc-emkho acid 0.4 1 tablet PO DAILY 11/02/22 04/05/24 Unknown History mg-lycopene 300 mcg-lutein 250 mcg tablet (Centrum Silver) albuterol sulfate 90 mcg/actuation inhalation 04/25/25 Unknown History aerosol inhaler azelastine 137 mcg (0.1 %) nasal intranasal 04/25/25 Unknown History spray Allergies Allergy/AdvReac Type Severity Reaction Status Date / Time Cephalosporins Allergy Severe RASH Verified 04/25/25 14:07 moxifloxacin (From Avelox) Allergy Mild Unknown Verified 04/25/25 14:07 azithromycin Allergy Unknown Rash Verified 04/25/25 14:07 rifampin Allergy Unknown Hives Verified 04/25/25 14:07 metronidazole AdvReac Diarrhea Verified 04/25/25 14:07 Animal Dander Allergy Unknown Sneezing Uncoded 04/25/25 14:07 DUST MITES Allergy Unknown Sneezing Uncoded 04/25/25 14:07 Review of Systems Review of Systems: Pertinent positives per HPI. Patient denies any fever, chills, rash, visual changes, dizziness, cough, runny nose, sore throat, shortness of breath, chest pain, palpitations, nausea, vomiting, diarrhea, constipation, abdominal pain, or any urinary issues. [facility] Past Medical History Medical History Arthritis of left knee History of stress test Hypertension History of torn meniscus of left knee Tenosynovitis of wrist flexor Right rotator cuff tear Tear of medial meniscus of left knee Hypothyroid Arthritis GERD (gastroesophageal reflux disease) Diverticulosis Diverticulitis Surgical History Surgical History Hx of removal of cyst (~2020) from the throat Hx of cataract surgery (~2018) Status post brachioplasty (~2007) H/O rhytidectomy (~2002) H/O carpal tunnel repair (~1993) History of hysterectomy (~1991) S/P right rotator cuff repair Status post breast reduction (~2012) Family History Family History Father Family history of cardiovascular disease, Onset Age: 80 Mother Diabetes mellitus Social History Social History Smoking status: Never smoker Alcohol intake: current Drinks per week: 1 Substance use: never Lack of Transportation: No Lack of Food: Never True Current Housing: I Have Housing Concerned About Future Housing: No Difficulty Paying Gas/Electric Bills: No Difficulty Paying for Meds: No Currently Unemployed: No Education: Bachelor's Degree Difficulty w/ Childcare or Family Care: No Living arrangements: with family Gender identity (if verbalized by the patient): Female Spiritual care concerns: No Comments At the time of my signature, I reviewed and agree with the nursing past medical, surgical, social, and family history. There is no relevant family history pertinent to the patient complaint. Exam Narrative: General: Well-developed, well nourished, in no apparent distress Head: Normocephalic, atraumatic. Cardio: Regular rate and rhythm, s1 and s2 normal, no murmur appreciated. Resp: Clear to auscultation bilaterally, no rhonchi, rales, wheezing or rubs. Extremities: No deformity, no edema, no cyanosis, capillary refill less than 2 seconds, peripheral pulses palpable and strong. Integumentary: Eleele, warm, and dry, intact without lesion, no rashes. Musculoskeletal: No deformity, non-tender to palpation, grossly normal range of motion, muscle strength strong and equal, peripheral pulse strong, no edema, no cyanosis, normal gait and station Course Course Emergency Course: Portions of this record may have been created with voice recognition software. Level of Care: Express Care Visit Vital Signs Vital signs: Vital Signs Temperature 36.6 C 04/25/25 14:05 Pulse Rate 86 04/25/25 14:05 Respiratory Rate 16 04/25/25 14:05 Blood Pressure 200/81 H 04/25/25 14:05 Pulse Oximetry 97 04/25/25 14:05 Temperature 36.6 C 04/25/25 14:05 Pulse Rate 86 04/25/25 14:05 Respiratory Rate 16 04/25/25 14:05 Blood Pressure 200/81 H 04/25/25 14:05 Pulse Oximetry 97 04/25/25 14:05 Vital signs reviewed Transfer Transfered to: [facility] Transportation: Other (Private car) Transfer rationale: KIRBY, htn urgency, lightheadedness Accepting physician: Dr. Gudino Transfer comments: private car- to drive Medical Decision Making MDM Narrative Medical decision making narrative: At the time of visit patient is resting comfortably on the exam table. Patient appears to be nontoxic. c/o high blood pressure. She reports having headache, feeling off, and lightheadedness X3-4 days. Recently got back from a cruise one week ago. Was sea sick during the cruise. History of high blood pressure and she takes Losartan 25mg daily. B/P was 200/81 and 207/86 in the clinic. She denies any URI symptoms or fever. No visual changes, chest pain, or shortness of breath. EKG ordered. Patient unable to void-just went before triage. EKG: EKG shows sinus rhythm with a heart rate of 85 beats per minute with a occasional PVC. No ST elevation, depression, or T-wave inversion noted. Plan: Recommend transfer to the ED for hypertension urgency, lightheadedness, and headache. No chest pain or shortness of breath at this time. Patient would like to go to the [facility] ED for further evaluation. Report called to Dr. Gudino at [facility] and she accepts patient for transfer. Patient to be driven to the hospital by her . Differential Diagnosis Differential Diagnosis: HTN crisis, HTN urgency, nSTEMI, STEMI, vertigo, vascular headache, Vital Signs Vital Signs: Vital Signs Temperature 36.6 C 04/25/25 14:05 Pulse Rate 86 04/25/25 14:05 Respiratory Rate 16 04/25/25 14:05 Blood Pressure 200/81 H 04/25/25 14:05 Pulse Oximetry 97 04/25/25 14:05 Temperature 36.6 C 04/25/25 14:05 Pulse Rate 86 04/25/25 14:05 Respiratory Rate 16 04/25/25 14:05 Blood Pressure 200/81 H 04/25/25 14:05 Pulse Oximetry 97 04/25/25 14:05 ECG Data EKG #1: Attestation: I personally reviewed and interpreted this ECG as follows: ECG completion date: 04/25/25 ECG completion time: 14:16 Prior ECG tracings: not available for review Interpretation: EKG shows sinus rhythm with occasional PVC. Heart rate 85 beats per min. No ST elevation, depression, or T-wave inversion noted. RI interval is 187 milliseconds, QRS durations 88 milliseconds, QT-QTC is 371-for her and 13 milliseconds, P-R-T axis is 79 -14 63 Discharge Plan Discharge Clinical Impression: Light-headedness Hypertension Qualifiers: Hypertension type: unspecified Qualified Code(s): I10 - Essential (primary) hypertension Headache Qualifiers: Headache type: unspecified Headache chronicity pattern: acute headache Intractability: not intractable Qualified Code(s): R51.9 - Headache, unspecified Patient Disposition: Acute Care Hospital Condition: Stable Patient Language: Maltese Prescriptions: No Action azelastine 137 mcg (0.1 %) spray,non-aerosol INTRANASAL albuterol sulfate 90 mcg/actuation HFA aerosol inhaler INHALATION levothyroxine 50 mcg tablet 50 mcg PO DAILY polymyxin B sulf-trimethoprim [Polytrim] 10,000 unit- 1 mg/mL drops 1 drp LEFT EYE Q4H 7 Days Qty: 10 0RF Rx Instructions: while awake; do not exceed 6 doses in 24 hours doxycycline hyclate 100 mg capsule 100 mg PO BID 7 Days Qty: 14 0RF benzonatate 200 mg capsule 200 mg PO TID PRN (Reason: cough) Qty: 20 0RF calcium carbonate [Calcium 600] 600 mg calcium (1,500 mg) tablet 600 mg PO BID Centrum Silver 0.4 mg-300 mcg- 250 mcg tablet 1 tablet PO DAILY alendronate 70 mg tablet 70 mg PO WEEKLY cetirizine [Zyrtec] 10 mg tablet 10 mg PO DAILY PRN (Reason: allergies) multivitamin Tablet 1 tablet PO DAILY losartan 25 mg tablet 25 mg PO DAILY Follow-up/Referrals: Loraine,DENTON Arizmendi [Primary Care Provider] - Time of Disposition: 14:24 Quality NIHSS Nursing Documentation ED NIHSS nursing documentation: reviewed/agree
[2025-04-25 14:05] VITALS: BP 200/81; PULSE 86; RESP 16; TEMP 36.6; O2SAT 97
--- NOTE | 2025-04-25 14:16 | ECG_ITS ---
[facility] [address] [place] [id number] Electrocardiograph Report Signed Patient: Gauri Bill : 1945 MR#: [id number] Age: 79 Acct:[id number] Loc: [facility] ADM Date: 04/26/25Attending Dr: Alfred Bustos APRN. Ordering Physician: Alfred Bustos APRN Date of Service: 04/25/25 Procedure(s): CA 12 lead EKG Accession Number(s): [id number] cc: ~ Test Date: 2025-04-25 14:16:01 Measurements Intervals Samson Rate: 85 P: 79 CT: 187 QRS: -14 QRSD: 88 T: 63 QT: 371 QTc: 442 Interpretive Statements SINUS RHYTHM WITH OCCASIONAL SUPRAVENTRICULAR PREMATURE COMPLEXES LOW QRS VOLTAGE IN EXTREMITY LEADS [QRS DEFLECTION < 0.5 mV IN LIMB LEADS] No previous ECG available for comparison Electronically Signed On 04-26-2025 14:11:53 CDT by Tino Stanley M.D. Please be advised this is a medical document. It is intended for [id number] communication. It is written in medical language and may contain unfamiliar abbreviations or verbiage. Medical documents are intended to carry relevant information, facts as evident, and the clinical opinion of the practitioner at the time of the encounter. This report may have been done utilizing a voice recognition system. Attempts have been made to correct errors. However, there may be uncorrected grammatical, spelling, and recognition errors present. The file time of this note does not necessarily represent the time of service. Dictated By: Tino Stanley MD 04/25/25 1416 Signed By: <Electronically signed by Tino Stanley MD in OV> 04/26/25 1
== END 2025-04-25 14:30 | disposition short-term general hospital (02) ==
PROVIDERS: Emergency Provider Nurse Practitioner Family; PCP Registered Nurse
DX: R42 Dizziness and giddiness (principal); I10 Essential (primary) hypertension; R51.9 Headache, unspecified; E03.9 Hypothyroidism, unspecified; M19.90 Unspecified osteoarthritis, unspecified site; K21.9 Gastro-esophageal reflux disease without esophagitis; M17.12 Unilateral primary osteoarthritis, left knee
CPT/HCPCS: 93005; 99213; G0463

== ENCOUNTER 2025-04-25 14:41 | Inpatient (IN) | payer MEDICARE, BC, SELFPAY ==
[2025-04-25] VITALS (17 sets, daily range): BP systolic 102–204; BP diastolic 44–88; PULSE 75–108; RESP 14–24; TEMP 36.2; O2SAT 97–100
--- NOTE | ~2025-04-25 | MR_ITS ---
EXAMINATION: MR brain/brain stem wo/w con DATE: 04/26/2025 16:01 INDICATION: Abnormal head CT. Assess for bleed. TECHNIQUE: Magnetic resonance imaging (MRI) of the brain and brainstem was performed without and with 12 mL Multihance intravenous contrast. Sequences included sagittal and axial T1-weighted SE, axial d iffusion-weighted FS SE, axial 3D SWAN, axial T2-weighted FLAIR, and axial T2-weighted FSE. Postcontr ast axial and coronal T1-weighted SE was obtained. Apparent diffusion coefficient (ADC) maps were cre ated. COMPARISON: Head CT dated 04/25/2025 and 09/22/2005 FINDINGS: There are no areas of restricted diffusion to suggest acute infarction. There is susceptibility artif act and decreased T2 signal associated with chronic dystrophic calcifications at the bilateral basal ganglias seen on the prior CT which are also subtly present on earlier a as seen on the prior CT whic h are also subtly present on earlier CT from 09/12/2005. This accounts for the hyperdense foci descri bed on the prior CT. No intracranial hemorrhage or abnormal intracranial mass lesion. There are scatt ered areas of nonspecific increased T2-weighted signal intensity in the pontine and cerebral white ma tter, predominantly involving the deep and periventricular white matter. There are no intraparenchyma l signal abnormalities seen on the other pulse sequences. The ventricles are symmetric and normal in size. There are no abnormal extra-axial fluid collections. Flow voids are seen in the cerebral arteri es on the T2-weighted sequences consistent with their expected patency. Mild mucosal thickening the b ilateral ethmoid sinuses. Changes of bilateral intraocular lens replacement. Visualized orbits and so ft tissues are unremarkable. There are no areas of abnormal enhancement on the post contrast images. IMPRESSION: 1. No acute intracranial process. Hyperdense foci seen at the bilateral basal ganglia on prior CT are consistent with chronic dystrophic calcifications which have been present but have progressed since earlier study dated 09/12/2005. 2. Moderate nonspecific scattered pontine and cerebral white matter T2 hyperintensity consistent with chronic small vessel ischemic disease. Reviewed, dictated and finalized at location A. IMPRESSION: 1. No acute intracranial process. Hyperdense foci seen at the bilateral basal g anglia on prior CT are consistent with chronic dystrophic calcifications which have been present but have progressed since earlier study dated 09/12/2005. 2. Moderate nonspecific scattered pontine and cerebral white matter T2 hyperint ensity consistent with chronic small vessel ischemic disease.
--- NOTE | ~2025-04-25 | CT_ITS ---
EXAMINATION: CTA brain carotid DATE: 04/25/2025 21:50 INDICATION: dizziness, headache, rule out vascula TECHNIQUE: Computed tomographic angiography (CTA) of the head and neck was performed with 100 mL Omni paque-350 intravenous contrast. Automated exposure control and iterative reconstruction technique wer e employed. The dose-length product was 844.36 mGy-cm. Maximum intensity projection and volume render ed 3D-reconstructions were created by the technologist on a separate workstation. COMPARISON: CT brain, same date. FINDINGS: CTA HEAD: No large vessel occlusion, aneurysm, high flow vascular malformation, nidus or extravasation. 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 Symmetric parenchymal enhancement. Patent cerebra l veins. CTA NECK: Aortic arch and proximal great vessels: Normal arch anatomy. Atherosclerotic calcifications at the vi sualized aortic arch and proximal great vessels. Right common carotid, carotid bifurcation, and internal carotid artery: No severe stenosis is noted h owever there is motion artifact likely secondary to swallowing that obscures vessel detail at the lev el of the bifurcation. Left common carotid, carotid bifurcation, and internal carotid artery: No severe stenosis noted howev er there is motion artifact likely secondary to swallowing that obscures osseous detail at the level of the distal common carotid and bifurcation. Vertebral arteries: No significant plaque or stenosis. Vertebral arteries co-dominant. Other findings: None. IMPRESSION: No large vessel intracranial occlusion, high-grade intracranial stenosis, or aneurysm. No severe stenosis, occlusion, or dissection detected in the carotid arteries, however there is signi ficant swallowing motion artifact that obscures vessel detail at the level of the right carotid bifur cation and at the level of the left distal common carotid and left carotid bifurcation. No vertebral artery occlusion, dissection, or significant stenosis. Reviewed, dictated and finalized at location K. IMPRESSION: No large vessel intracranial occlusion, high-grade intracranial stenosis, or an eurysm. No severe stenosis, occlusion, or dissection detected in the carotid arteries, however there is significant swallowing motion artifact that obscures vessel de tail at the level of the right carotid bifurcation and at the level of the left distal common carotid and left carotid bifurcation. No vertebral artery occlusion, dissection, or significant stenosis.
--- NOTE | ~2025-04-25 | CT_ITS ---
EXAMINATION: CT brain wo con DATE: 04/25/2025 16:13 INDICATION: headache dizziness, lightheaded . TECHNIQUE: Computed tomography (CT) of the head was performed without intravenous contrast. The mA wa s adjusted according to patient size. Iterative reconstruction technique was employed. The dose-lengt h product was 605.33 mGy-cm. COMPARISON: CT sinuses 08/20/2008, CT brain 09/12/2005. FINDINGS: 5 mm hyperdense focus in the right basal ganglia/internal capsule. No acute extra-axial fluid collect ion. No hydrocephalus, mass, or herniation. No acute ischemic infarct. Unremarkable dural venous sinus attenuation. No acute osseous abnormality. The aerated spaces are clear. Moderate atrophy and chronic white matter change. Atherosclerotic intracranial calcification. Bilater al lens replacements. Bilateral basal ganglia calcifications. IMPRESSION: 5 mm hyperdense focus in the right basal ganglia, may represent amorphous calcification, a tiny hemor rhagic lacunar infarct, or tiny focus of hypertensive hemorrhage. MRI of the brain could be helpful f or further characterization. Results reported telephonically to Dr. Gudino by Dr. Morgan at 4:25 PM on 04/25/2025. Reviewed, dictated and finalized at location K. IMPRESSION: 5 mm hyperdense focus in the right basal ganglia, may represent amorphous calci fication, a tiny hemorrhagic lacunar infarct, or tiny focus of hypertensive hem orrhage. MRI of the brain could be helpful for further characterization. Results reported telephonically to Dr. Gudino by Dr. Morgan at 4:25 PM on 2024.
--- OUTSIDE RECORDS SUMMARY | 2025-04-25 14:44 | XMS_ITS | Clinical Summary ---
Author Organization [facility] Address [address] [place] [address] Care Team Providers Care Oracle Technical Developer Name Role Phone Kyleigh Baron Primary Care Provider + Allergies Active Allergy Reactions Criticality Noted Date Comments Azithromycin Rash Medium 09/25/2012 Found in allergy testing Cephalosporins Hives High Diclofenac Nausea & Vomiting Low 11/10/2014 Moxifloxacin Rash Medium 11/10/2014 possible Penicillins Hives High Rifampin Headache,Rash Medium 09/16/2012 Medications levothyroxine (SYNTHROID, LEVOTHROID) 75 mcg tabletIndicatio ns:hypothyroidi sm Take 75 mcg by mouth landscape gardener before breakfast Active famotidine (PEPCID) 20 mg tabletIndicatio ns:GERD Take 20 mg by mouth daily as needed Active cetirizine (ZyrTEC) 10 mg tabletIndicatio ns:Allergic Rhinitis Take 10 mg by mouth landscape gardener before breakfast Active cholecalciferol (VITAMIN D-3) 2,000 unit capsuleIndicati ons:hypoparathy roidism,Vitamin D Deficiency Take 2,000 Units by mouth landscape gardener before breakfast Active fluticasone propionate (FLONASE) 50 mcg/actuation nasal sprayIndication s:Allergic Rhinitis Administer 1 spray into each nostril landscape gardener before breakfast Active cromolyn (NASALCHROM) 5.2 mg/spray (4 %) nasal sprayIndication s:Allergic Rhinitis Administer 1 spray into each nostril 4 (four) times a day as needed Active psyllium, aspartame, SF (METAMUCIL SF) 3.4 gram packetIndicatio ns:constipation Take 1 packet by mouth 2 (two) times a day Active prednisoLONE acetate (PRED FORTE) 1 % ophthalmic suspension Administer 1 drop into the left eye 3 (three) times a day 9 Active Active Problems Problem Noted Date Diagnosed Date Hay fever 12/09/2013 Allergic rhinitis due to animal hair and dander 06/10/2013 Cough 02/05/2013 Allergic reaction to drug 12/05/2012 Mycobacterium avium-intracellulare infection Acquired trigger finger 09/28/2011 Ganglion of joint 09/28/2011 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 Sensorineural hearing loss, bilateral (Primary Dx); Tinnitus, bilateral from Last 3 Months Surgical History Surgery Date Site/Laterality Comments KNEE ARTHROSCOPY 10/01/2013 - 09/30/2014 Left Meniscus Repair left knee HYSTERECTOMY ~1991 OTHER SURGICAL HISTORY ~1979 Excision Mortion's Neuroma right foot OTHER SURGICAL HISTORY 10/01/2002 - 09/30/2003 Neck lift REDUCTION MAMMAPLASTY 10/01/2012 - 09/30/2013 FACIAL COSMETIC SURGERY 10/01/2014 - 09/30/2015 Mini face lift COLONOSCOPY 2000 & 1998 CATARACT EXTRACTION W/ INTRAOCULAR LENS IMPLANT 01/29/2019 - 02/28/2019 WRIST SURGERY 2013? Right found bacterial infection THUMB SURGERY 10/01/2006 - 09/30/2007 Right growth removed Medical History Medical History Date Comments Hypothyroidism Personal history of other medical treatment Shepard's Neuroma Right Foot Cataract Bilateral eyes [place] (hard of hearing) Wears bila teral hearing aides GERD (gastroesophageal reflux disease) Family History Medical History Relation Name Comments Diabetes Mother Family history of diabetes mellitus - (Added by TW Conv) Relation Name Status Comments Mother Social History Tobacco Use Types Packs/Day Years Used Date Smoking Tobacco: Never Smokeless Tobacco: Never Alcohol Use Standard Drinks/Week Comments Yes 4 (1 standard drink = 0.6 oz pur e alcohol) Comments No Sex and Gender Information Value Date Recorded Sex Assigned at Not on file 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 Gender Identity Not on file Sexual Orientation Not on file Obstetrics History Comments S/p Hysterectomy Last Filed Vital Signs Vital Sign Reading Time Taken Comments Blood Pressure 140/59 03/26/2019 10:30 AM CDT Pulse 64 03/26/2019 10:30 AM CDT Temperature 36.3 C (97.3 F) 03/26/2019 10:20 AM CDT Respiratory Rate 16 03/26/2019 10:20 AM CDT Oxygen Saturation 98% 03/26/2019 10:30 AM CDT Inhaled Oxygen Concentration - - Weight 61.2 kg (135 lb) 03/12/2019 5:15 PM CDT Height 147.3 cm (4' 10) 03/12/2019 5:15 PM CDT Body Mass Index 28.22 03/12/2019 5:15 PM CDT Plan of Treatment Health Maintenance Due Date Last Done Comments Depression Screening 1945 Fall Risk Assessment 1945 Hepatitis B Screening 1961 Well Visit 65+ 2008 Zoster Vaccine (2 of 2) 12/13/2018 10/18/2018 Covid-19 Vaccine ( season) 2024 06/18/2024, 12/13/2023, 06/23/2023, Additional history exists Influenza Vaccine (#1) 2025 , 07/01/2023, 06/27/2022, Additional history exists Osteoporosis Screening-Bone Density Scan 11/18/2026 11/18/2024 DTaP/Tdap/Td Vaccine (2 - Td or Tdap) 09/14/2031 09/14/2021 Pneumococcal vaccine 65+ Completed 022, 04/22/2020, 08/20/2017 Medical Devices Implanted Type Area Martial Arts Instructor Device Identifier Shelf Expiration Date Model / Serial / Lot [employer] [id number] Tecnis Protec 6mm 13mm 1 Piece Multifocal Anterior Aspheric Uv - [id number] - [id number] Implanted:Qty: 1 on 02/26/2019 by Yonis Smith MD at [facility] Lens Left: Eye [employer] 04/15/2021 [id number] / [id number] / 0 [id number] +19.0d Implanted:Qty: 1 on 03/26/2019 by Yonis Smith MD at [facility] Right: Lens [employer] 10/15/2021 [id number] / [id number] / Description:[employer]erra Presbyopia Iol Rezoom (Pt Pays) - [id number] Implanted:Qty: 1 on 03/26/2019 by Yonis Smith MD at [facility] Right: Lens [employer] NXG1, [id number], ZMA00, ZMB00, ZXT, ZXR / / Presbyopia Iol Rezoom Avg - [id number] Implanted:Qty: 1 on 03/26/2019 by Yonis Smith MD at [facility] Right: Lens [employer] NXG1, [id number], ZMA00, ZMB00, ZXT, ZXR / / Procedures Procedure Name Priority Date/Time Associated Diagnosis Comments AUDBASE RESULTS 04/02/2025 2:51 PM CDT from Last 3 Months Results * AudBase Results (04/02/2025 2:51 PM CDT) Provider Scanning AUDIOLOGY SERVICES ORDERABLES Final Result from Last 3 Months Insurance MEDICARE [facility] MEDICARE [facility] Advance Directives For more information, please contact: [phone] * Full Code (Latest Code Status on File) Date Activated Date Inactivated Comments 03/26/2019 7:39 AM 03/26/2019 2:58 PM * Full Code Date Activated Date Inactivated Comments 02/26/2019 7:19 AM 02/26/2019 2:33 PM Care Teams Oracle Technical Developer Relationship Specialty Start Date End Date Kyleigh Baron PA [facility] [place] [address] PCP - General Nurse Practitioner 04/02/25
--- OUTSIDE RECORDS SUMMARY | 2025-04-25 14:44 | XMS_ITS | Clinical Summary ---
Author Organization [facility] Address [address] [place] [address] Phone Care Team Providers Care Patient Care Technician Instructor Name Role Phone Moreno Muller MD Primary Care Provider Fany vailable Allergies Active Allergy Reactions Criticality Noted Date Comments Azithromycin Unknown 09/25/2012 Found in allergy testing Cephalosporins Unknown 09/23/2012 Diclofenac Nausea and Vomiting Low 11/10/2014 Moxifloxacin Other (See Comments) 11/10/2014 possible Penicillins Unknown 09/23/2012 Rifampin Rash,Headache Low 09/16/2012 Medications levothyroxine 75 mcg Oral tablet Take 75 mcg by mouth daily. Active omeprazole (PRILOSEC) 20 mg Oral CpDR Take 20 mg by mouth daily. Active albuterol (PROAIR HFA) 90 mcg/Actuation Inhalation HFAA inhaler Take 2 Puffs by inhalation every 4 hours as needed. Active cetirizine (ZYRTEC) 10 mg tablet Take 10 mg by mouth daily. Active benzonatate (TESSALON) 100 mg capsule Take 100 mg by mouth 3 times daily. Active FLUTICASONE PROPIONATE (FLUTICASONE BOTH NOSTRIL) Administer in each nostril. 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 Gender Identity Not on file Sexual Orientation Not on file Occupation Industry Job Start Date Job End Date Not on file Not on file Not on file Not on file Last Filed Vital Signs Vital Sign Reading Time Taken Comments Blood Pressure 110/45 11/19/2014 7:37 AM FILTER PRESS TENDER Pulse 82 11/19/2014 7:37 AM FILTER PRESS TENDER Temperature 35.8 C (96.5 F) 11/19/2014 7:37 AM FILTER PRESS TENDER Respiratory Rate 16 11/19/2014 7:37 AM FILTER PRESS TENDER Oxygen Saturation 97% 11/19/2014 7:37 AM FILTER PRESS TENDER Inhaled Oxygen Concentration - - Weight 62.5 kg (137 lb 12.8 oz) 11/18/2014 6:31 AM FILTER PRESS TENDER Height 147.3 cm (4' 10) 11/10/2014 11: 03 AM FILTER PRESS TENDER Body Mass Index 28.8 11/10/2014 11:03 AM FILTER PRESS TENDER Plan of Treatment Health Maintenance Due Date Last Done Comments DTAP/TDAP/TD VACCINES (1 - Tdap) 1962 PNEUMOCOCCAL VACCINE 50+ YEARS (1 of 1 - PCV) 09/06/19 93 ZOSTER VACCINE (1 of 2) 1993 OSTEOPOROSIS SCREENING 2008 RSV VACCINE (60+ or ) (1 - 1-dose 75+ series) 2018 INFLUENZA VACCINE (#1) 2025 Insurance MEDICARE PART A AND B [facility] Advance Directives For more information, please contact: [phone] * Full Code (Latest Code Status on File) Date Activated Date Inactivated Comments 11/18/2014 11:32 AM 11/19/2014 1:06 PM * Full Code Date Activated Date Inactivated Comments 11/18/2014 6:48 AM 11/18/2014 11:32 AM * Full Code Date Activated Date Inactivated Comments 09/25/2012 12:31 PM 09/26/2012 12:42 PM * Full Code Date Activated Date Inactivated Comments 09/25/2012 8:30 AM 09/25/2012 12:31 PM * Full Code Date Activated Date Inactivated Comments 09/25/2012 8:27 AM 09/25/2012 8:30 AM Care Teams Patient Care Technician Instructor Relationship Specialty Start Date End Date Moreno Muller MD NO ADDRESS ON FILE PCP - General Family Practice 11/10/14
--- OUTSIDE RECORDS SUMMARY | 2025-04-25 14:44 | XMS_ITS | Referral Summary ---
Author Organization [facility] Address [address] [place] [address] Care Team Providers Care Contracts Law Professor Name Role Phone Kyleigh Baron Primary Care Provider + Encounters Date Type Department Care Team Description 04/23/2025 Documentation [facility] Otolaryngology [address] [place] [address] Medical Office Building [address] [address] Samanta Blackwell Hearing Aid Evaluation 04/02/2025 3:00 PM CDT Procedure visit [facility] Otolaryngology [address] [place] [address] Medical Office Building [address] [address] Monica Gutierrez Au.D. Sensorineural hearing loss, bilateral (Primary Dx); Tinnitus, bilateral from Last 3 Months Allergies Active Allergy Reactions Criticality Noted Date Comments Azithromycin Rash Medium 09/25/2012 Found in allergy testing Cephalosporins Hives High Diclofenac Nausea & Vomiting Low 11/10/2014 Moxifloxacin Rash Medium 11/10/2014 possible Penicillins Hives High Rifampin Headache,Rash Medium 09/16/2012 Medications levothyroxine (SYNTHROID, LEVOTHROID) 75 mcg tabletIndicatio ns:hypothyroidi sm Take 75 mcg by mouth survey associate before breakfast Active famotidine (PEPCID) 20 mg tabletIndicatio ns:GERD Take 20 mg by mouth daily as needed Active cetirizine (ZyrTEC) 10 mg tabletIndicatio ns:Allergic Rhinitis Take 10 mg by mouth survey associate before breakfast Active cholecalciferol (VITAMIN D-3) 2,000 unit capsuleIndicati ons:hypoparathy roidism,Vitamin D Deficiency Take 2,000 Units by mouth survey associate before breakfast Active fluticasone propionate (FLONASE) 50 mcg/actuation nasal sprayIndication s:Allergic Rhinitis Administer 1 spray into each nostril survey associate before breakfast Active cromolyn (NASALCHROM) 5.2 mg/spray [...] of joint 09/28/2011 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 Social History Tobacco Use Types Packs/Day Years Used Date Smoking Tobacco: Never Smokeless Tobacco: Never Alcohol Use Standard Drinks/Week Comments Yes 4 (1 standard drink = 0.6 oz pur e alcohol) Comments No Sex and Gender Information Value Date Recorded Sex Assigned at Not on file 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 Gender Identity Not on file Sexual Orientation Not on file Last Filed Vital Signs [...] 03/12/2019 5:15 PM CDT Plan of Treatment Not on file Medical Devices Implanted Type Area Braille Duplicating Machine Operator Device Identifier Shelf Expiration Date Model / Serial / Lot [employer] [id number] Tecnis Protec 6mm 13mm 1 Piece Multifocal Anterior Aspheric Uv - [id number] - [id number] Implanted:Qty: 1 on 02/26/2019 by Yonis Smith MD at [facility] Lens Left: Eye [employer] 04/15/2021 [id number] / [id number] / 0 [id number] +19.0d Implanted:Qty: 1 on 03/26/2019 by Yonis Smith MD at [facility] Right: Lens [employer] 10/15/2021 [id number] / [id number] / Description:[employer] Presbyopia Iol Rezoom (Pt Pays) - [id number] Implanted:Qty: 1 on 03/26/2019 by Yonis Smith MD at [facility] Right: Lens [employer] NXG1, [id number], ZMA00, ZMB00, ZXT, ZXR / / Presbyopia Iol Rezoom Avg - [id number] Implanted:Qty: 1 on 03/26/2019 by Yonis Smith MD at [facility] Right: Lens [employer] [place] [employer] NXG1, [id number], ZMA00, ZMB00, ZXT, ZXR / / Procedures Procedure Name Priority Date/Time Associated Diagnosis Comments AUDBASE RESULTS 04/02/2025 2:51 PM CDT from Last 3 Months Results * AudBase Results (04/02/2025 2:51 PM CDT) Provider Scanning AUDIOLOGY SERVICES ORDERABLES Final Result from Last 3 Months Insurance MEDICARE [place] MEDICARE [facility] FEDERAL Advance Directives For more information, please contact: [phone] * Full Code (Latest Code Status on File) Date Activated Date Inactivated Comments 03/26/2019 7:39 AM 03/26/2019 2:58 PM * Full Code Date Activated Date Inactivated Comments 02/26/2019 7:19 AM 02/26/2019 2:33 PM Care Teams Contracts Law Professor Relationship Specialty Start Date End Date Kyleigh Baron PA [address] [place] [id number] PCP - General Nurse Practitioner 04/02/25
--- OUTSIDE RECORDS SUMMARY | 2025-04-25 14:44 | XMS_ITS | Encounter Summary ---
Author Organization [facility] Address 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
--- OUTSIDE RECORDS SUMMARY | 2025-04-25 14:44 | XMS_ITS | Encounter Summary ---
Author Organization [email or web address] Address [address] [place] [address] Care Team Providers Care Remedy Developer Name Role Phone Moreno Muller MD Primary Care Provider Fany vailable Encounter Details Date Type Department Care Team (Late st Contact Info) Description 06/18/2003 Outpatient Historical [facility] Support Serv. (Adt Cardiology[facility]) [address] 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
--- OUTSIDE RECORDS SUMMARY | 2025-04-25 14:44 | XMS_ITS | Clinical Summary ---
Author Organization [facility] Address [address] [place] [address] Care Team Providers Care Sealer Sander Name Role Phone Unavailable Primary Care Provider Unavailabl e Source Comments [facility],non-owned Affiliates and Associated Physician Practices is amultiple site organization consisting of ambulatory clinics and hospital sitesin [place], [place], [place] and [place]. This disclosure is being madepursuant to the Care Everywhere program and may not contain all information available regarding this patient. 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 Gender Identity Not on file Sexual Orientation Not on file Plan of Treatment Health Maintenance Due Date Last Done Comments BONE DENSITY TESTING 1943 DTAP/TDAP/TD VACCINES (1 - Tdap) 1962 PNEUMOCOCCAL VACCINE 50+ (1 of 1 - PCV) 1993 ZOSTER VACCINE (1 of 2) 1993 Respiratory Syncytial Virus (RSV) Vaccine Pt: or over 60 yrs (1 - 1-dose 75+ series) 2018 COVID-19 VACCINE ( - 2023-2 5 season) 2024 DEPRESSION SCREENING 10/01/2024 INFLUENZA VACCINE (#1) 2025 HEPATITIS B VACCINE Aged Out No longe r eligible based on patient's age to complete this topic HIB VACCINE Aged Out No longer eligi ble based on patient's age to complete this topic HPV VACCINE Aged Out No longer eligi ble based on patient's age to complete this topic MENINGOCOCCAL (Group B) VACC INE SHARED DECISION-MAKING Aged Out No longer eligibl e based on patient's age to complete this topic MENINGOCOCCAL GROUPS A/C/Y/W VACCINE Aged Out No longer eligible b ased on patient's age to complete this topic Insurance [facility]
--- OUTSIDE RECORDS SUMMARY | 2025-04-25 14:45 | XMS_ITS | Encounter Summary ---
Author Organization [facility] Address [facility] [place] [address] Care Team Providers Care Information Security Director Name Role Phone Kyleigh Baron Primary Care Provider [phone] [phone] Encounter Details Date Type Department Care Team (Late st Contact Info) Description 10/06/2020 [employer] Message Enc [facility] Medical Group Family & Internal Medicine [facility] [address] [place] [address] Kyleigh Baron APNP [address] [place] [address] RE: Follow Up/Update Social History Tobacco Use Types Packs/Day Years Used Date Smoking Tobacco: Never Smokeless Tobacco: Never Alcohol Use Standard Drinks/Week Comments Yes 3.3 (1 standard drink = 0.6 oz p ure alcohol) 1 x per week PHQ-2 Answer Date Recorded PHQ-2 Score - If the patient scores above 3, please move on to questions 3-9 0 09/21/2020 Comments Unknown Sex and Gender Information Value Date Recorded Sex Assigned at Female 11/10/2024 10:18 AM GROOVING MACHINE OPERATOR Legal Sex Female 10:26 AM CDT Gender Identity Female 01/06/2022 6:23 AM CDT Sexual Orientation Straight 01/06/2022 6: 23 AM CDT COVID-19 Exposure Response Date Recorded In the last month, have you been in contact with someone who was confirmed or suspected to have Coronavirus / COVID-19? No / Unsure 10/08/2020 1:50 PM GROOVING MACHINE OPERATOR documented as of this encounter Plan of Treatment Not on file documented as of this encounter Visit Diagnoses Not on filedocumented in this encounter Additional Health Concerns Infection Onset Date Last Indicated Resolved Time COVID-19 Rule Out 06/19/2023 06/19/2023 06/19/2023 11:26 AM CDT COVID-19 Rule Out 06/19/2023 06/19/2023 06/20/2023 6:05 PM CDT Respiratory Rule Out 11/26/2024 11/26/2024 025 1:26 PM GROOVING MACHINE OPERATOR Respiratory Rule Out 02/24/2025 02/24/2025 025 11:31 AM CDT documented as of this encounter Care Teams Information Security Director Relationship Specialty Start Date End Date Kyleigh Baron APNP [address] [place] [id number] PCP - General NURSE PRACTITIONER 03/17/20 documented as of this encounter
--- OUTSIDE RECORDS SUMMARY | 2025-04-25 14:45 | XMS_ITS | Encounter Summary ---
Author Organization [facility] Address [facility] [place] [address] Care Team Providers Care Manager Adobe Name Role Phone Kyleigh Baron Primary Care Provider [phone] [phone] Encounter Details Date Type Department Care Team (Late st Contact Info) Description 05/06/2020 Molecular Detectiont Message Enc [facility] Medical Group Family & Internal Medicine [facility] [address] [place] [address] Kyleigh Baron APNP [address] [place], [place] [id number] Question Social History Tobacco Use Types Packs/Day Years Used Date Smoking Tobacco: Never Smokeless Tobacco: Never Alcohol Use Standard Drinks/Week Comments Yes 6.7 (1 standard drink = 0.6 oz p ure alcohol) PHQ-2 Answer Date Recorded PHQ-2 Score 0 03/17/2020 Comments Unknown Sex and Gender Information Value Date Recorded Sex Assigned at Female 11/10/2024 10:18 AM VAT HOUSE LABORER Legal Sex Female 10:26 AM CDT Gender Identity Female 01/06/2022 6:23 AM CDT Sexual Orientation Straight 01/06/2022 6: 23 AM CDT COVID-19 Exposure Response Date Recorded In the last month, have you been in contact with someone who was confirmed or suspected to have Coronavirus / COVID-19? No / Unsure 04/22/2020 1:20 PM CDT documented as of this encounter Plan of Treatment Not on file documented as of this encounter Visit Diagnoses Not on filedocumented in this encounter Additional Health Concerns Infection Onset Date Last Indicated Resolved Time COVID-19 Rule Out 08/20/2020 08/21/2020 08/30/2020 2:30 PM VAT HOUSE LABORER COVID-19 Rule Out 06/19/2023 06/19/2023 06/19/2023 11:26 AM CDT COVID-19 Rule Out 06/19/2023 06/19/2023 06/20/2023 6:05 PM CDT Respiratory Rule Out 11/26/2024 11/26/2024 025 1:26 PM VAT HOUSE LABORER Respiratory Rule Out 02/24/2025 02/24/2025 025 11:31 AM CDT documented as of this encounter Care Teams Manager Adobe Relationship Specialty Start Date End Date Kyleigh Baron APNP [address] [place] [id number] PCP - General NURSE PRACTITIONER 03/17/20 documented as of this encounter
--- OUTSIDE RECORDS SUMMARY | 2025-04-25 14:45 | XMS_ITS | Encounter Summary ---
Author Organization [facility] Address [facility] [place] [address] Care Team Providers Care Track Supervisor Name Role Phone LoraineKyleigh ojeda Kira LEÓN Primary Care Provider [phone] Encounter Details Date Type Department Care Team (Late st Contact Info) Description 03/22/2022 [employer] Message Enc [facility] Medical Group Family & Internal Medicine [address] [address] [address] [facility] [place] Provider appointment Social History Tobacco Use Types Packs/Day Years Used Date Smoking Tobacco: Never Smokeless Tobacco: Never Alcohol Use Standard Drinks/Week Comments Yes 3.3 (1 standard drink = 0.6 oz p ure alcohol) 1 x per week PHQ-2 Answer Date Recorded PHQ-2 Score - If the patient scores above 3, please move on to questions 3-9 0 03/22/2022 Comments Unknown Sex and Gender Information Value Date Recorded Sex Assigned at Female 11/10/2024 10:18 AM MEDICAL DIRECTOR OF HOSPICE Legal Sex Female 10:26 AM CDT Gender Identity Female 01/06/2022 6:23 AM CDT Sexual Orientation Straight 01/06/2022 6: 23 AM CDT COVID-19 Exposure Response Date Recorded In the last 10 days, have yo u been in contact with someone who was confirmed or suspected to have Coronavirus/COVID-19? Unable to assess 03/22/2022 6:41 AM CDT documented as of this encounter Plan of Treatment Not on file documented as of this encounter Visit Diagnoses Not on filedocumented in this encounter Additional Health Concerns Infection Onset Date Last Indicated Resolved Time COVID-19 Rule Out 06/19/2023 06/19/2023 06/19/2023 11:26 AM CDT COVID-19 Rule Out 06/19/2023 06/19/2023 06/20/2023 6:05 PM CDT Respiratory Rule Out 11/26/2024 11/26/2024 025 1:26 PM MEDICAL DIRECTOR OF HOSPICE Respiratory Rule Out 02/24/2025 02/24/2025 025 11:31 AM CDT Assessment Noted Time PHQ-9 Depression Total Score: 0 09/14/20 21 12:22 PM MEDICAL DIRECTOR OF HOSPICE documented as of this encounter Care Teams Track Supervisor Relationship Specialty Start Date End Date Kyleigh Baron APNP [address] [place] [id number] PCP - General NURSE PRACTITIONER 03/17/20 documented as of this encounter
--- OUTSIDE RECORDS SUMMARY | 2025-04-25 14:45 | XMS_ITS | Patient Health Record ---
Author Organization [facility] [employer] [place] ([address]) Address [address] [place] [address] Care Team Providers Care Senior Biostatistician Name Role Phone Kyleigh Baron Primary Care Provider Harriet Solis Unavailable [phone] Allergies Allergen (clinical drug ingredient) Drug/Non Drug Allergy documented on EMR Reaction Allergy Type Onset Date Status AVELOX (uncoded) Unknown Allergy Act omid cephalexin Cephalexin hives Drug Allergy Activ e Diclofenac Unknown Drug Allergy Active rifampin rifAMPin Unknown Drug Allergy Active azithromycin Zithromax Unknown Drug Allergy Acti ve Reason For Referral No Information Medications Medication SIG (Take, Route, Frequency, Duration) Notes Start Date End Date Status Alendronate Sodium 70 MG 1 tab(s) orally once a week Active Citracal Maximum 250 MG-12.5 MCG 2 TAB(S) CHEWED 2 TIMES A DAY (WITH MEALS) *Please review and pick correct strength-formulat ion from [facility] options. If intended option is not shown, discontinue and re-order from Quick Search* Active NEILMED SINUS RINSE KIT *Please review for potential replacement for e-prescription and drug interaction check* Active SIT (TRADITIONAL) variable per schedule SC per schedule; Duration: to be determined Active Azelastine HCl 137 MCG/SPRAY 2 spray(s) intranasally 2 times a day; Duration: 30 day(s) Not-Taking GUAIFENESIN ER 600 mg 1 tab(s) orally every 12 hours 11/08/2022 Not-Taking Flonase Allergy Relief 50 MCG/ACT 1 spray(s) in each nostril once a day; Duration: 30 day(s) Not-Taking Ryaltris 25 MCG-665 MCG/INH 2 SPRAY(S) IN EACH NOSTRIL 2 TIMES A DAY *Please review and pick correct strength-formulat ion from [facility]asdi options. If intended option is not shown, discontinue and re-order from Quick Search* 12/12/2022 Not-Taking guaiFENesin ER 600 MG 1 tab(s) orally every 12 hours 11/08/2022 Not-Taking Amoxicillin-Pot Clavulanate 875-125 MG 1 tab(s) orally every 12 hours; Duration: 10 day(s) 11/08/2022 Not-Taking Albuterol Sulfate HFA 108 (90 Base) MCG/ACT 2 puffs as needed Inhalation every 4 hrs; Duration: 30 days Active PEPCID 20 mg 1 tab(s) orally 2 times a day Active AZELASTINE NASAL 137 mcg/inh 2 spray(s) intranasally 2 times a day; Duration: 30 days Active CITRACAL + D 250 mg-12.5 mcg 2 tab(s) chewed 2 times a day (with meals) Active AMOXICILLIN-CLAVULA CÉSAR 875 mg-125 mg 1 tab(s) orally every 12 hours; Duration: 10 day(s) 11/08/2022 Not-Taking CENTRUM Therapeutic Multiple Vitamins with Minerals 1 tab(s) orally once a day Active FLONASE 50 mcg/inh 1 spray(s) in each nostril once a day; Duration: 30 day(s) Not-Taking RYALTRIS 25 mcg-665 mcg/inh 2 spray(s) in each nostril 2 times a day 12/12/2022 Not-Taking METAMUCIL 3.4 g/5.2 g as directed orally once a day Active Losartan Potassium 25 MG 1 tab(s) orally once a day Active ALENDRONATE 70 mg 1 tab(s) orally once a week Active Metamucil Smooth Texture 58.6 % as directed orally once a day Active LEVOTHYROXINE 75 mcg (0.075 mg) 1 tab(s) orally once a day Active EPINEPHrine 0.3 MG/0.3ML as directed Injection as needed; Duration: 1 days 12/31/2024 Active LOSARTAN 25 mg 1 tab(s) orally once a day Active Levothyroxine Sodium 75 MCG 1 tab(s) orally once a day Active PROAIR HFA 90 MCG/INH 2 PUFF(S) INHALED EVERY 6 HOURS; Duration: 90 DAYS *Please review for potential replacement for e-prescription and drug interaction check* Active Azelastine HCl 137 MCG/SPRAY 2 puffs each nostril Nasally Twice a day; Duration: 30 days 03/12/2025 Active ALBUTEROL (EQV-VENTOLIN HFA) 90 MCG/INH 2 PUFF(S) INHALED Q4-6 HOURS, PRN AND PER THE ASTHMA ACTION PLAN; Duration: 30 DAY(S) *Please review for potential replacement for e-prescription and drug interaction check* Active Azelastine HCl 137 MCG/SPRAY 2 sprays in each nostril Nasally Twice a day; Duration: 30 days 01/27/2025 Active AZELASTINE HYDROCHLORIDE NASAL 137 mcg/inh 2 spray(s) intranasally 2 times a day; Duration: 30 day(s) Not-Taking Centrum THERAPEUTIC MULTIPLE VITAMINS WITH MINERALS 1 TAB(S) ORALLY ONCE A DAY *Please review and pick correct strength-formulat ion from [facility] options. If intended option is not shown, discontinue and re-order from Quick Search* Active Immunizations Vaccine Route Administration Date Status Comme nts NOC Pneumovax 23 Unknown 12/05/2018 Administered Portal Information NOC Pneumovax 23 Unknown 12/10/2018 Administered Portal Information H1N1 Influenza Unknown 07/09/2019 Administered Portal I nformation H1N1 Influenza Unknown 07/16/2019 Administered Portal I nformation Flucelvax Unknown 07/10/2019 Administered Social History Tobacco Use: Social History Observation Description Date Details (start date - stop date) Never Smoker NA - NA Sex Assigned At : Social History Observation Description Sex Assigned At Female Smoking Smart Form: Question Answer Notes Are you a: never smoker Tobacco Control (Standard) Question Answer Notes Tobacco use: Nonsmoker Problems Problem Type SNOMED Code ICD Code Onset Dates Problem Status W/U Status Risk Notes Problem Chronic allergic conjunctivitis (41691142) Other chronic allergic conjunctivitis (H10.45) Active confirmed Problem Common cold (93422237) Acute nasopharyngitis [common cold] (J00) Active confirmed Problem Acute upper respiratory infection (43801518) Acute upper respiratory infection, unspecified (J06.9) Active confirmed Problem Allergic rhinitis caused by pollen (disorder) (86918832) Allergic rhinitis due to pollen (J30.1) Active confirmed Problem Allergic rhinitis caused by animal hair and dander (239765004707559) Allergic rhinitis due to animal (cat) (dog) hair and dander (J30.81) Active confirmed Problem Allergic rhinitis (88774478) Other allergic rhinitis (J30.89) Active confirmed Problem Cough (92548061) Cough (R05) Active confirmed Problem Allergic rhinitis caused by pollen (disorder) (99899132) Allergic rhinitis due to pollen (J30.1) Active confirmed Problem Allergic rhinitis caused by animal hair and dander (780249159184934) Allergic rhinitis due to animal (cat) (dog) hair and dander (J30.81) Active confirmed Problem Allergic rhinitis (55249680) Other allergic rhinitis (J30.89) Active confirmed Problem Chronic allergic conjunctivitis (26617673) Other chronic allergic conjunctivitis (H10.45) Active confirmed Problem Allergy to penicillin (39777059) Allergy status to penicillin (Z88.0) Active confirmed Problem Allergy status t o other anti-infective agents status (Z88.3) Active confirmed Problem Chronic cough (29534617) Chronic cough (R05.3) Active confirmed Vital Signs Blood pressure diastolic 76 mm Hg 01/27/2025 Oximetry 97 % 01/27/2025 Height 58 in 01/27/2025 Blood pressure systolic 141 mm Hg 01/27/2025 Weight 131.8 lbs 01/27/2025 BMI 27.54 kg/m2 01/27/2025 Encounters Encounter Location Date Provider Diagnosis [facility] [address] [phone] 05/06/2024 Harriet Chin Allergic rhinitis du e to pollen J30.1 ; Other allergic rhinitis J30.89 ; Allergic rhinitis due to animal (cat) (dog) hair and dander J30.81 and Other chronic allergic conjunctivitis H10.45 [facility] [address] [phone] 05/14/2024 Harriet Chin Allergic rhinitis du e to pollen J30.1 ; Other allergic rhinitis J30.89 ; Allergic rhinitis due to animal (cat) (dog) hair and dander J30.81 and Other chronic allergic conjunctivitis H10.45 [facility] [address] [place] [phone] 05/20/2024 Harriet Chin Allergic rhinitis du e to pollen J30.1 ; Other allergic rhinitis J30.89 ; Allergic rhinitis due to animal (cat) (dog) hair and dander J30.81 and Other chronic allergic conjunctivitis H10.45 [facility] [address] [place] [phone] 05/27/2024 Harriet Chin Allergic rhinitis du e to pollen J30.1 ; Other allergic rhinitis J30.89 ; Allergic rhinitis due to animal (cat) (dog) hair and dander J30.81 and Other chronic allergic conjunctivitis H10.45 [facility] [address] [place] [phone] 06/24/2024 Harriet Chin Allergic rhinitis du e to pollen J30.1 ; Other allergic rhinitis J30.89 ; Allergic rhinitis due to animal (cat) (dog) hair and dander J30.81 and Other chronic allergic conjunctivitis H10.45 [facility] [address] [place] [phone] 07/22/2024 Harriet Chin Allergic rhinitis du e to pollen J30.1 ; Other allergic rhinitis J30.89 ; Allergic rhinitis due to animal (cat) (dog) hair and dander J30.81 and Other chronic allergic conjunctivitis H10.45 [facility] [address] [place] [phone] 08/20/2024 Harriet Chin Chronic cough R05.3 ; COVID-19 U07.1 ; Allergy status to penicillin Z88.0 ; Allergic rhinitis due to pollen J30.1 ; Allergic rhinitis due to animal (cat) (dog) hair and dander J30.81 ; Other allergic rhinitis J30.89 ; Other chronic allergic conjunctivitis H10.45 and Allergy status to other anti-infective agents status Z88.3 [facility] [address] [place] [phone] 08/26/2024 Harriet Chin Allergic rhinitis du e to pollen J30.1 ; Other allergic rhinitis J30.89 ; Allergic rhinitis due to animal (cat) (dog) hair and dander J30.81 and Other chronic allergic conjunctivitis H10.45 [facility] [address] [place], [place] [address] [address] [place] [phone] 09/09/2024 Harriet Chin Allergic rhinitis du e to pollen J30.1 ; Other allergic rhinitis J30.89 ; Allergic rhinitis due to animal (cat) (dog) hair and dander J30.81 and Other chronic allergic conjunctivitis H10.45 [facility] [address] [place], [place] [address] [address] [place] [phone] 09/22/2024 Harriet Chin Allergic rhinitis du e to pollen J30.1 ; Other allergic rhinitis J30.89 ; Allergic rhinitis due to animal (cat) (dog) hair and dander J30.81 and Other chronic allergic conjunctivitis H10.45 [facility] [address] [place], [place] [address] [address] [place] [phone] 10/07/2024 Harriet Chin Allergic rhinitis du e to pollen J30.1 ; Other allergic rhinitis J30.89 ; Allergic rhinitis due to animal (cat) (dog) hair and dander J30.81 and Other chronic allergic conjunctivitis H10.45 [facility] [address] [place], [place] [address] [address] [place] [phone] 11/04/2024 Harriet Chin Allergic rhinitis du e to pollen J30.1 ; Other allergic rhinitis J30.89 ; Allergic rhinitis due to animal (cat) (dog) hair and dander J30.81 and Other chronic allergic conjunctivitis H10.45 [facility] [employer] [address] [place] [phone] 12/02/2024 Harriet Chin Allergic rhinitis du e to pollen J30.1 ; Other allergic rhinitis J30.89 ; Allergic rhinitis due to animal (cat) (dog) hair and dander J30.81 and Other chronic allergic conjunctivitis H10.45 [facility] [address] [place], [place] [address] [address] [place] [phone] 12/31/2024 Harriet Chin Allergic rhinitis du e to pollen J30.1 ; Other allergic rhinitis J30.89 ; Allergic rhinitis due to animal (cat) (dog) hair and dander J30.81 and Other chronic allergic conjunctivitis H10.45 [facility] [address] [place] [address] [employer] [address] [phone] 01/27/2025 Harriet Chin Chronic cough R05.3 ; Allergy status to penicillin Z88.0 ; Allergic rhinitis due to pollen J30.1 ; Allergic rhinitis due to animal (cat) (dog) hair and dander J30.81 ; Other allergic rhinitis J30.89 ; Other chronic allergic conjunctivitis H10.45 and Allergy status to other anti-infective agents status Z88.3 [facility] [address] [place] [phone] 02/10/2025 Harriet Chin Allergic rhinitis du e to pollen J30.1 ; Other allergic rhinitis J30.89 ; Allergic rhinitis due to animal (cat) (dog) hair and dander J30.81 and Other chronic allergic conjunctivitis H10.45 [facility] [address] [place] [phone] 02/26/2025 aHrriet Chin Allergic rhinitis du e to pollen J30.1 ; Other allergic rhinitis J30.89 ; Allergic rhinitis due to animal (cat) (dog) hair and dander J30.81 and Other chronic allergic conjunctivitis H10.[address] [address] 03/05/2025 Harriet Chin Allergic rhinitis du e to pollen J30.1 ; Other allergic rhinitis J30.89 ; Allergic rhinitis due to animal (cat) (dog) hair and dander J30.81 and Other chronic allergic conjunctivitis H10.45 [facility] [address] [place] [address] [employer] [address] [address] 03/11/2025 Harriet Chin Allergic rhinitis du e to pollen J30.1 ; Other allergic rhinitis J30.89 ; Allergic rhinitis due to animal (cat) (dog) hair and dander J30.81 and Other chronic allergic conjunctivitis H10.45 [facility] [address] [place] [phone] 03/17/2025 Harriet Chin Allergic rhinitis du e to pollen J30.1 ; Other allergic rhinitis J30.89 ; Allergic rhinitis due to animal (cat) (dog) hair and dander J30.81 and Other chronic allergic conjunctivitis H10.[address] [address] 03/25/2025 Harriet Chin Allergic rhinitis du e to pollen J30.1 ; Other allergic rhinitis J30.89 ; Allergic rhinitis due to animal (cat) (dog) hair and dander J30.81 and Other chronic allergic conjunctivitis H10.45 [facility] [address] [place] [phone] 04/08/2025 Harriet Chin Allergic rhinitis du e to pollen J30.1 ; Other allergic rhinitis J30.89 ; Allergic rhinitis due to animal (cat) (dog) hair and dander J30.81 and Other chronic allergic conjunctivitis H10.[address] [address] 04/21/2025 Harriet Chin Allergic rhinitis du e to pollen J30.1 ; Other allergic rhinitis J30.89 ; Allergic rhinitis due to animal (cat) (dog) hair and dander J30.81 and Other chronic allergic conjunctivitis H10.[address] [phone] 12/31/2024 Harriet Chin [address] [address] 01/12/2025 Harriet Chin [address] [address] 03/11/2025 Harriet Chin Chronic cough R05.3 Assessments Encounter Date Diagnosis (ICD Code) Assessment Notes Treatment Notes Treatment Clinical Notes Section Notes 05/06/2024 Allergic rhinitis due to pollen (ICD-10 - J30.1) 05/14/2024 Allergic rhinitis due to pollen (ICD-10 - J30.1) 05/20/2024 Allergic rhinitis due to pollen (ICD-10 - J30.1) 05/27/2024 Allergic rhinitis due to pollen (ICD-10 - J30.1) 06/24/2024 Allergic rhinitis due to pollen (ICD-10 - J30.1) 07/22/2024 Allergic rhinitis due to pollen (ICD-10 - J30.1) 08/20/2024 COVID-19 (ICD-10 - U07.1) symptoms started 8 days ago and positive testing at home. Recommend continuing to avoid other people until feeling better. Start albuterol q4 hours while coughing 08/20/2024 Chronic cough (ICD-10 - R05.3) Considerations for cough include post nasal drip, asthma, and GERD. Spirometry at her initial visit was normal. No improvement in the past with Arnuity or omeprazole and currently taking Pepcid. Some improvement with immunotherapy but not resolved. Currently cough appears secondary to Covid and need to continue prn albuterol until cough improves 08/26/2024 Allergic rhinitis due to pollen (ICD-10 - J30.1) 09/09/2024 Allergic rhinitis due to pollen (ICD-10 - J30.1) 09/22/2024 Allergic rhinitis due to pollen (ICD-10 - J30.1) 10/07/2024 Allergic rhinitis due to pollen (ICD-10 - J30.1) 11/04/2024 Allergic rhinitis due to pollen (ICD-10 - J30.1) 12/02/2024 Allergic rhinitis due to pollen (ICD-10 - J30.1) 12/31/2024 Allergic rhinitis due to pollen (ICD-10 - J30.1) 01/27/2025 Allergy status to penicillin (ICD-10 - Z88.0) Skin testing and challenge tolerated in 201901/27/2025 Chronic cough (ICD-10 - R05.3) Considerations for cough include post nasal drip, asthma, and GERD. Spirometry at her initial visit was normal. No improvement in the past with Arnuity or omeprazole. Some improvement with immunotherapy but not resolved. 02/26/2025 Allergic rhinitis due to pollen (ICD-10 - J30.1) 03/05/2025 Allergic rhinitis due to pollen (ICD-10 - J30.1) 03/11/2025 Chronic cough (ICD-10 - R05.3) 03/11/2025 Allergic rhinitis due to pollen (ICD-10 - J30.1) 03/17/2025 Allergic rhinitis due to pollen (ICD-10 - J30.1) 04/21/2025 Allergic rhinitis due to pollen (ICD-10 - J30.1) 04/08/2025 Allergic rhinitis due to pollen (ICD-10 - J30.1) 03/25/2025 Allergic rhinitis due to pollen (ICD-10 - J30.1) 02/10/2025 Allergic rhinitis due to pollen (ICD-10 - J30.1) 02/10/2025 Other allergic rhinitis (ICD-10 - J30.89) 03/25/2025 Other allergic rhinitis (ICD-10 - J30.89) 04/08/2025 Other allergic rhinitis (ICD-10 - J30.89) 04/21/2025 Other allergic rhinitis (ICD-10 - J30.89) 03/17/2025 Other allergic rhinitis (ICD-10 - J30.89) 03/11/2025 Other allergic rhinitis (ICD-10 - J30.89) 03/05/2025 Other allergic rhinitis (ICD-10 - J30.89) 02/26/2025 Other allergic rhinitis (ICD-10 - J30.89) 12/31/2024 Other allergic rhinitis (ICD-10 - J30.89) 01/27/2025 Allergic rhinitis due to pollen (ICD-10 - J30.1) Gauri clearly suffers from atopic disease based upon our skin testing., She is tolerating SCIT without large local or systemic symptoms. She was instructed to carry her epinephrine autoinjector for 2 hours after leaving the office. SCIT held today due to Covid. 12/02/2024 Other allergic rhinitis (ICD-10 - J30.89) 11/04/2024 Other allergic rhinitis (ICD-10 - J30.89) 10/07/2024 Other allergic rhinitis (ICD-10 - J30.89) 09/22/2024 Other allergic rhinitis (ICD-10 - J30.89) 09/09/2024 Other allergic rhinitis (ICD-10 - J30.89) 08/26/2024 Other allergic rhinitis (ICD-10 - J30.89) 08/20/2024 Allergy status to penicillin (ICD-10 - Z88.0) Skin testing and challenge tolerated in 201907/22/2024 Other allergic rhinitis (ICD-10 - J30.89) 06/24/2024 Other allergic rhinitis (ICD-10 - J30.89) 05/27/2024 Other allergic rhinitis (ICD-10 - J30.89) 05/20/2024 Other allergic rhinitis (ICD-10 - J30.89) 05/14/2024 Other allergic rhinitis (ICD-10 - J30.89) 05/06/2024 Other allergic rhinitis (ICD-10 - J30.89) 05/06/2024 Allergic rhinitis due to animal (cat) (dog) hair and dander (ICD-10 - J30.81) 05/14/2024 Allergic rhinitis due to animal (cat) (dog) hair and dander (ICD-10 - J30.81) 05/20/2024 Allergic rhinitis due to animal (cat) (dog) hair and dander (ICD-10 - J30.81) 05/27/2024 Allergic rhinitis due to animal (cat) (dog) hair and dander (ICD-10 - J30.81) 06/24/2024 Allergic rhinitis due to animal (cat) (dog) hair and dander (ICD-10 - J30.81) 07/22/2024 Allergic rhinitis due to animal (cat) (dog) hair and dander (ICD-10 - J30.81) 08/20/2024 Allergic rhinitis due to pollen (ICD-10 - J30.1) Gauri clearly suffers from atopic disease based upon our skin testing., She is tolerating SCIT without large local or systemic symptoms. She was instructed to carry her epinephrine autoinjector for 2 hours after leaving the office. SCIT held today due to Covid. 08/26/2024 Allergic rhinitis due to animal (cat) (dog) hair and dander (ICD-10 - J30.81) 09/09/2024 Allergic rhinitis due to animal (cat) (dog) hair and dander (ICD-10 - J30.81) 09/22/2024 Allergic rhinitis due to animal (cat) (dog) hair and dander (ICD-10 - J30.81) 10/07/2024 Allergic rhinitis due to animal (cat) (dog) hair and dander (ICD-10 - J30.81) 11/04/2024 Allergic rhinitis due to animal (cat) (dog) hair and dander (ICD-10 - J30.81) 12/02/2024 Allergic rhinitis due to animal (cat) (dog) hair and dander (ICD-10 - J30.81) 12/31/2024 Allergic rhinitis due to animal (cat) (dog) hair and dander (ICD-10 - J30.81) 01/27/2025 Allergic rhinitis due to animal (cat) (dog) hair and dander (ICD-10 - J30.81) 02/26/2025 Allergic rhinitis due to animal (cat) (dog) hair and dander (ICD-10 - J30.81) 03/05/2025 Allergic rhinitis due to animal (cat) (dog) hair and dander (ICD-10 - J30.81) 03/17/2025 Allergic rhinitis due to animal (cat) (dog) hair and dander (ICD-10 - J30.81) 03/11/2025 Allergic rhinitis due to animal (cat) (dog) hair and dander (ICD-10 - J30.81) 04/21/2025 Allergic rhinitis due to animal (cat) (dog) hair and dander (ICD-10 - J30.81) 04/08/2025 Allergic rhinitis due to animal (cat) (dog) hair and dander (ICD-10 - J30.81) 03/25/2025 Allergic rhinitis due to animal (cat) (dog) hair and dander (ICD-10 - J30.81) 02/10/2025 Allergic rhinitis due to animal (cat) (dog) hair and dander (ICD-10 - J30.81) 04/08/2025 Other chronic allergic conjunctivitis (ICD-10 - H10.45) 02/10/2025 Other chronic allergic conjunctivitis (ICD-10 - H10.45) 03/25/2025 Other chronic allergic conjunctivitis (ICD-10 - H10.45) 04/21/2025 Other chronic allergic conjunctivitis (ICD-10 - H10.45) 03/11/2025 Other chronic allergic conjunctivitis (ICD-10 - H10.45) 03/17/2025 Other chronic allergic conjunctivitis (ICD-10 - H10.45) 03/05/2025 Other chronic allergic conjunctivitis (ICD-10 - H10.45) 01/27/2025 Other allergic rhinitis (ICD-10 - J30.89) 02/26/2025 Other chronic allergic conjunctivitis (ICD-10 - H10.45) 12/31/2024 Other chronic allergic conjunctivitis (ICD-10 - H10.45) 12/02/2024 Other chronic allergic conjunctivitis (ICD-10 - H10.45) 11/04/2024 Other chronic allergic conjunctivitis (ICD-10 - H10.45) 10/07/2024 Other chronic allergic conjunctivitis (ICD-10 - H10.45) 09/22/2024 Other chronic allergic conjunctivitis (ICD-10 - H10.45) 09/09/2024 Other chronic allergic conjunctivitis (ICD-10 - H10.45) 08/26/2024 Other chronic allergic conjunctivitis (ICD-10 - H10.45) 08/20/2024 Allergic rhinitis due to animal (cat) (dog) hair and dander (ICD-10 - J30.81) 07/22/2024 Other chronic allergic conjunctivitis (ICD-10 - H10.45) 06/24/2024 Other chronic allergic conjunctivitis (ICD-10 - H10.45) 05/27/2024 Other chronic allergic conjunctivitis (ICD-10 - H10.45) 05/20/2024 Other chronic allergic conjunctivitis (ICD-10 - H10.45) 05/14/2024 Other chronic allergic conjunctivitis (ICD-10 - H10.45) 05/06/2024 Other chronic allergic conjunctivitis (ICD-10 - H10.45) 08/20/2024 Other allergic rhinitis (ICD-10 - J30.89) 01/27/2025 Other chronic allergic conjunctivitis (ICD-10 - H10.45) Given ocular signs and symptoms I encouraged allergy avoidance measures and meds as above. If symptoms persist, consider adding additional medications including intraocular antihistamine/mast cell stabilizer, PRN 01/27/2025 Allergy status to other anti-infective agents status (ICD-10 - Z88.3) Gauri has multiple drug allergies. Recommend continued avoidance and consider drug challenges if needed 08/20/2024 Other chronic allergic conjunctivitis (ICD-10 - H10.45) Given ocular signs and symptoms I encouraged allergy avoidance measures and meds as above. If symptoms persist, consider adding additional medications including intraocular antihistamine/mast cell stabilizer, PRN 08/20/2024 Allergy status to other anti-infective agents status (ICD-10 - Z88.3) Gauri has multiple drug allergies. Recommend continued avoidance and consider drug challenges if needed 08/20/2024 Other 01/27/2025 Other Plan Of Treatment Next Appt Details Provider Name:Harriet arredondo, 05/05/2025 10:30:00 AM, [address] [employer] [address], [address], Provider Name:Harriet arredondo, 07/29/2025 10:00:00 AM, [address] [facility] [address], [address], Insurance Providers Payer Name Payer Address Payer Phone Subscriber Number Group Number Insured Name Patient Relationship to Insured Coverage Start Date Coverage End Date [employer] (Medicare) Attention Claims [address] [facility] [place] [address] [id number] Gauri Bill Self - patient is the insured [facility] [address] [place] [address] [id number] Gauri Bill Self - patient is the insured Medical (General) History Medical History History ICD Code Hypothyroidism Cough R05 Allergic rhinitis due to pollen J30.1 Other chronic allergic conjunctivitis H1 0.45 Surgical History Surgery Date(Month/Year) hysterectomy 03/06/1992 carpal tunnel release 1993 breast reduction Face Lift Torn Meniscus repair Hospitalization History Reason Date(Month/Year) mini face lift 10/01/2014 arthroscopic repair of torn meniscus - l eft knee 10/01/2013 breast reduction 10/01/2012 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
--- OUTSIDE RECORDS SUMMARY | 2025-04-25 14:45 | XMS_ITS | Encounter Summary ---
Author Organization [facility] Address Critical access hospital[address] [place] [address] Care Team Providers Care Wire Stripper Name Role Phone Kyleigh Baron Primary Care Provider +1 [phone] Encounter Details Date Type Department Care Team (Late st Contact Info) Description 07/09/2022 Agilis Biotherapeuticst Message Enc [facility] Medical Group Family & Internal Medicine [facility] [address] [place] [address] Kyleigh Baron APNP [address] [place] [address] Thyroid test Social History Tobacco Use Types Packs/Day Years [...] Sex Assigned at Female 11/10/2024 10:18 AM INTER COM INSTALLER Legal Sex Female 10:26 AM CDT Gender Identity Female 01/06/2022 6:23 AM CDT Sexual Orientation Straight 01/06/2022 6: 23 AM CDT COVID-19 Exposure Response Date Recorded In the last 10 days, have yo u been in contact with someone who was confirmed or suspected to have Coronavirus/COVID-19? No / Unsure 07/07/2022 10:11 AM CDT documented as of this encounter Plan of Treatment Not on file documented as of this encounter Visit Diagnoses Not on filedocumented in this encounter Additional Health Concerns Infection Onset Date Last Indicated Resolved Time COVID-19 Rule Out 06/19/2023 06/19/2023 06/19/2023 11:26 AM CDT COVID-19 Rule Out 06/19/2023 06/19/2023 06/20/2023 6:05 PM CDT Respiratory Rule Out 11/26/2024 11/26/2024 025 1:26 PM INTER COM INSTALLER Respiratory Rule Out 02/24/2025 02/24/2025 025 11:31 AM CDT Assessment Noted Time PHQ-9 Depression Total Score: 0 09/14/20 21 12:22 PM INTER COM INSTALLER documented as of this encounter Care Teams Wire Stripper Relationship Specialty Start Date End Date Kyleigh Baron APNP [address] [place] [id number] PCP - General NURSE PRACTITIONER 03/17/20 documented as of this encounter
--- OUTSIDE RECORDS SUMMARY | 2025-04-25 14:45 | XMS_ITS | Encounter Summary ---
Author Organization [facility] Address [facility] [place] [address] Care Team Providers Care Fire Management Officer Name Role Phone Kyleigh Baron Primary Care Provider +1 [phone] Encounter Details Date Type Department Care Team (Late st Contact Info) Description 02/03/2021 [employer] Message Enc [facility] Medical Group Family & Internal Medicine [facility] [address] [place] [address] Kyleigh Baron APNP [address] [place] [address] Medication Questions Social History Tobacco Use Types Packs/Day Years [...] Sex Assigned at Female 11/10/2024 10:18 AM RESEARCH WORKER ENCYCLOPEDIA Legal Sex Female 10:26 AM CDT Gender Identity Female 01/06/2022 6:23 AM CDT Sexual Orientation Straight 01/06/2022 6: 23 AM CDT documented as of this encounter Plan of Treatment Not on file documented as of this encounter Visit Diagnoses Not on filedocumented in this encounter Additional Health Concerns Infection Onset Date Last Indicated Resolved Time COVID-19 Rule Out 06/19/2023 06/19/2023 06/19/2023 11:26 AM CDT COVID-19 Rule Out 06/19/2023 06/19/2023 06/20/2023 6:05 PM CDT Respiratory Rule Out 11/26/2024 11/26/2024 025 1:26 PM RESEARCH WORKER ENCYCLOPEDIA Respiratory Rule Out 02/24/2025 02/24/2025 025 11:31 AM CDT documented as of this encounter Care Teams Fire Management Officer Relationship Specialty Start Date End Date Kyleigh Baron APNP [address] [place] [id number] PCP - General NURSE PRACTITIONER 03/17/20 documented as of this encounter
--- OUTSIDE RECORDS SUMMARY | 2025-04-25 14:45 | XMS_ITS | Encounter Summary ---
Author Organization [facility] Address [facility] [place] [address] Care Team Providers Care Pastor Name Role Phone Kyleigh Baron Primary Care Provider +1 [phone] Encounter Details Date Type Department Care Team (Late st Contact Info) Description 08/11/2021 [email or web address] Message Enc [facility] Medical Group Family & Internal Medicine [facility] [address] [place] [address] Kyleigh Baron APNP [address] [place] [address] Question Social History Tobacco Use Types Packs/Day [...] Sex Assigned at Female 11/10/2024 10:18 AM CREDIT AUTHORIZER Legal Sex Female 10:26 AM CDT Gender [...] Rule Out 11/26/2024 11/26/2024 025 1:26 PM CREDIT AUTHORIZER Respiratory Rule Out 02/24/2025 02/24/2025 025 11:31 AM CDT documented as of this encounter Care Teams Pastor Relationship Specialty Start Date End Date Kyleigh Baron APNP [address] [place] [id number] PCP - General NURSE PRACTITIONER 03/17/20 documented as of this encounter
--- OUTSIDE RECORDS SUMMARY | 2025-04-25 14:45 | XMS_ITS | Clinical Summary ---
Author Organization [facility] Address [facility] [place] [address] Care Team Providers Care Purchasing Manager/Sales Name Role Phone Loraine Anupam Kira LEÓN Primary Care Provider [phone] Allergies Active Allergy Reactions Criticality Noted Date Comments Azithromycin Rash,Other (see comment) Medium 09/25/2012 Found in allergy testing Found in allergy testing Cephalosporins Rash,Other (see comment) High 09/23/2012 Diclofenac Nausea and Vomiting Low 11/10/2014 Doxycycline Nausea and Vomiting 07/07/2022 doxycyline monohydrate Metronidazole Diarrhea 04/01/2022 Moxifloxacin Other (see comment),Rash Medium 11/10/2014 possible possible Rifampin Headache,Rash Medium 09/16/2012 Seasonal Eyes Water & Itch 12/22/2020 Medications Multiple Vitamin (ONE-A-DAY 55 PLUS OR) every morning. 09/07/20 20 Active psyllium sugar free 58.6 % Pack Take 1 packet by mouth 2 (two) times daily. Active azelastine 0.1 % nasal spray 2 sprays 2 (two) times daily. 03/05/20 21 Active cetirizine 10 MG tablet 03/01/20 21 Active albuterol sulfate HFA 108 (90 Base) MCG/ACT inhaler every 6 (six) hours as needed. 09/05/20 23 Active Calcium-Magnesium- Vitamin D (CITRACAL CALCIUM+D OR) 10/01/19 24 Active triamcinolone acetonide (NASACORT ALLERGY 24HR) 55 MCG/ACT nasal inhaler 02/25/20 24 Active acyclovir (ZOVIRAX) 5 % ointmentIndication s:Fever blister Apply topically every 6 (six) hours. 30 g 11/26/19 25 Active alendronate (FOSAMAX) 70 MG tabletIndications: Age-related osteoporosis without current pathological fracture TAKE 1 TABLET(70 MG) BY MOUTH EVERY 7 DAYS 12 tablet 1 02/03/20 25 Active levothyroxine (SYNTHROID) 75 MCG tabletIndications: Acquired hypothyroidism TAKE 1 TABLET(75 MCG) BY MOUTH EVERY MORNING 90 tablet 1 02/19/20 25 Active EPINEPHrine 0.3 MG/0.3ML injection INJECT DIRECTED NEEDED 01/01/20 25 Active losartan (COZAAR) 25 MG tabletIndications: Essential hypertension Take 1 tablet (25 mg total) by mouth daily. 90 tablet 04/02/20 25 Active losartan (COZAAR) 25 MG tabletIndications: Essential hypertension TAKE 1 TABLET(25 MG) BY MOUTH DAILY 90 tablet 01/15/20 25 025 Discontin ued(Reord er) Active Problems Problem Noted Date Diagnosed Date Diverticulosis 09/14/2021 Arthritis of both knees 06/14/2020 Osteopenia of multiple sites 06/14/2020 GERD (gastroesophageal reflux disease) 0 Acquired hypothyroidism 03/17/2020 Seasonal allergies 03/17/2020 Vitamin D deficiency 03/17/2020 Essential hypertension 03/17/2020 Facial aging 11/18/2014 Hay fever 12/09/2013 Allergic rhinitis due to animal hair and dander 06/10/2013 Allergic reaction to drug 12/05/2012 Breast hypertrophy 09/25/2012 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 Acquired trigger finger 09/28/2011 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 Resolved Problems Problem Noted Date Diagnosed Date Resolved Date Ganglion of joint 09/28/2011 03/22/2022 Encounters Date Type Department Care Team Description 02/26/2025 MyChart Message Enc [facility] Medical Group Family & Internal Medicine [address] [phone] Anupam Baron APNP update on virtual visit 02/24/2025 9:00 AM CDT Telemedicine [facility] Family & Internal Medicine [address] [phone] Anupam Baron APNP Flu Like Symptoms (Pt c/o headache, productive cough, body aches since Sunday evening. Temp 101.0 this morning. Taking OTC Delsym./At-home COVID test negative last night./) 02/24/2025 Results Follow-Up [facility] Medical Group Family & Internal Medicine [address] [phone] Anupam Baron APNP CORONAVIRUS (COVID-19) INFLUENZA A & B ANTIGEN IA PANEL 02/24/2025 Travel from Last 3 Months Immunizations Immunization Administration Dates Next Due Abrysvo Respiratory Syncytia l Virus (RSV) 0.5 mL, PF 07/29/2023 Fluzone High Dose - >Age 65 (Prefilled Syringe) 06/30/2022,06/21/2021,06/14/2020 Influenza Adult (Generic) 07/01/2023,06/27/2022 MODERNA COVID-19 BIVALENT (1 2+), MRNA, LNP-S, PF 03/17/2023,06/14/2022 MODERNA COVID-19 (12+) MRNA, LNP-S, PF, 100 MCG/ 0.5 ML DOSE 08/12/2021,12/22/2020,11/24/2020 MODERNA COVID-19 (12+), MRNA , LNP-S, PF, 50 MCG/0.5 ML (SPIKEVAX) 06/23/2023 MODERNA COVID-19 ([employer] JESUS KAREN), MRNA, LNP-S, PF, 50 MCG/ 0.25 ML DOSE 01/03/2022 Pneumococcal (Pneumovax 23) 07/07/2022 Pneumococcal (Prevnar 13) 04/22/2020 Shingrix 10/18/2018 Tdap (Adacel) 09/14/2021 Family History Medical History Relation Comments Arthritis Mother Diabetes Mother Hypertension Mother Relation Status Comments Father Mother Social History Tobacco Use Types Packs/Day Years Used Date Smoking Tobacco: Never Smokeless Tobacco: Never Tobacco Cessation:Counseling Given: No Alcohol Use Standard Drinks/Week Comments Yes 5 (1 standard drink = 0.6 oz pur e alcohol) 1 x per week PHQ-2 Answer Date Recorded Patient Health Questionnaire-2 Score 2 11/02/2023 Comments No Sex and Gender Information Value Date Recorded Sex Assigned at Female 11/10/2024 10:18 AM SUPPLY PLANNER Legal Sex Female 10:26 AM CDT Gender Identity Female 01/06/2022 6:23 AM CDT Sexual Orientation Straight 01/06/2022 6: 23 AM CDT Last Filed Vital Signs Vital Sign Reading Time Taken Comments Blood Pressure 136/70 11/26/2024 10:43 AM SUPPLY PLANNER Pulse 75 11/26/2024 10:43 AM SUPPLY PLANNER Temperature 36.4 C (97.5 F) 11/26/2024 10:43 AM SUPPLY PLANNER Respiratory Rate 16 11/26/2024 10:4 3 AM SUPPLY PLANNER Oxygen Saturation 95% 11/26/2024 10: 43 AM SUPPLY PLANNER Inhaled Oxygen Concentration - - Weight 59.8 kg (131 lb 12.8 oz) 025 10:43 AM SUPPLY PLANNER Height 157.5 cm (5' 2) 11/26/2024 10:4 3 AM SUPPLY PLANNER Body Mass Index 24.11 11/26/2024 10:43 AM SUPPLY PLANNER Plan of Treatment Health Maintenance Due Date Last Done Comments Annual Medicare Wellness Visit 2008 Zoster Vaccines (2 of 2) 12/13/2018 10/18/2018 COVID-19 Vaccine ( season) 2024 12/13/2023, 06/23/2023, 03/17/2023, Additional history exists PHQ-2 (Physician [place]) 10/01/2024 11/02/2023 DTaP, Tdap and Td Vaccines (2 - Td or Tdap) 09/14/2031 09/14/2021 Pneumococcal Vaccine: 50+ Years Completed 07/07/2022, 04/22/2020 RSV Immunization or 60+ Years Completed 07/29/2023 Dexa Scan (General) Completed 11/18/2024, 09/20/2022, 09/20/2022, Additional history exists Meningococcal B Vaccine Aged Out No l onger eligible based on patient's age to complete this topic Meningococcal Vaccine Aged Out No yady keith eligible based on patient's age to complete this topic RSV Immunizations Under 20 Months Aged Out No longer eligible based on patient's age to complete this topic Procedures Procedure Name Priority Date/Time Associated Diagnosis Comments CORONAVIRUS (COVID-19) INFLUENZA A & B ANTIGEN IA PANEL Routine 02/24/2025 Acute cough Fever, unspecified fever cause Intractable headache, unspecified chronicity pattern, unspecified headache type BONE DENSITY/DEXA Routine 11/18/2024 12: 55 PM SUPPLY PLANNER Age-related osteoporosis without current pathological fracture from Last 3 Months or Most Recently Relevant to Health Maintenance Results * (ABNORMAL) CORONAVIRUS (COVID-19) INFLUENZA A & B ANTIGEN IA PANEL (02/24/2025) Pathologist [facility] CORONAVIRUS ANTIGEN IA NEGATIVE NEGATIVE [facility] INFLUENZA A NEGATIVE NEGATIVE [facility] INFLUENZA B NEGATIVE NEGATIVE [facility] Internal Control: VALID VALID [facility] NASAL STRUCTURE / Unknown 02/24/2025 us Anupam LEÓN MICROBIOLOGY - GENERAL EDWARDO BELTRAN Edited Result - Final [facility] [address] [place] [address], * BONE DENSITY/DEXA (11/18/2024 12:55 PM SUPPLY PLANNER) Anatomical Region Laterality Modality Bone Mammography 11/18/2024 1:00 PM SUPPLY PLANNER Impressions 11/18/2024 1:02 PM SUPPLY PLANNER IMPRESSION: WHO Classification: Osteopenia. RECOMMENDATIONS: All patients should ensure an adequate intake of dietary calcium and vitamin D. The NOF recommend adults under the age of 50 need 1000 mg of calcium and 400-800 IU of vitamin D daily. Effective therapy for the prevention and treatment of osteoporosis include bisphosphonates. FOLLOW-UP: People with diagnosed cases of osteoporosis or at high risk for fracture should have regular bone mineral density test. For patients eligible for Medicare, routine testing is allowed once every 2 years. Testing frequency can be increased to one year for patients who have rapidly progressing disease, those who are receiving or discontinuing medical therapy to restore bone mass, or have additional risk factors. Ordered By: ANUPAM BARON Interpreted By: Mark Easton, 11/18/2024 1:00 PM Narrative 11/18/2024 1:02 PM SUPPLY PLANNER [facility] [address] [place] [address] EXAMINATION: BONE DENSITY/DEXA INDICATIONS: Age-related osteoporosis without current pathological fracture COMPARISON: None TECHNIQUE: DEXA bone mineral density evaluation was performed in the AP projection over the lumbar spine and both hips utilizing standard imaging techniques. FINDINGS: The BMD measured at the AP spine L1-L4 is 0.887 g/cm? with a T-score of -1.5. The BMD measured at the left femoral neck is 0.679 g/cm? with a T-score of -1.5. The BMD measured at the left hip is 0.781 g/cm? with a T-score of -1.3. The BMD measured at the right femoral neck is 0.693 g/cm? with a T-score of - 1.4. The BMD measured at the right hip is 0.777 g/cm? with a T-score of -1.4. FRAX 10-year fracture risk: Major Osteoporotic Fracture: 18% Hip Fracture: 4.9% Procedure Note Mark Easton MD - 11/18/2024 [facility] [address] [place] [address] EXAMINATION: BONE DENSITY/DEXA INDICATIONS: Age-related osteoporosis without current pathologicalfracture COMPARISON: None TECHNIQUE: DEXA bone mineral density evaluation was performed in the APprojection over the lumbar spine and both hips utilizing standard imagingtechniques. FINDINGS: The BMD measured at the AP spine L1-L4 is 0.887 g/cm? with a T-score of-1.5. The BMD measured at the left femoral neck is 0.679 g/cm? with a T-score of-1.5. The BMD measured at the left hip is 0.781 g/cm? with a T-score of -1.3. The BMD measured at the right femoral neck is 0.693 g/cm? with a T-scoreof -1.4. The BMD measured at the right hip is 0.777 g/cm? with a T-score of -1.4. FRAX 10-year fracture risk: Major Osteoporotic Fracture: 18% Hip Fracture: 4.9% IMPRESSION: WHO Classification: Osteopenia. RECOMMENDATIONS: All patients should ensure an adequate intake of dietary calcium andvitamin D. The NOF recommend adults under the age of 50 need 1000 mg ofcalcium and 400-800 IU of vitamin D daily. Effective therapy for theprevention and treatment of osteoporosis include bisphosphonates. FOLLOW-UP: People with diagnosed cases of osteoporosis or at high risk for fractureshould have regular bone mineral density test. For patients eligible forMedicare, routine testing is allowed once every 2 years. Testing frequencycan be increased to one year for patients who have rapidly progressingdisease, those who are receiving or discontinuing medical therapy torestore bone mass, or have additional risk factors. Ordered By: ANUPAM BARON Interpreted By: Mark Easton, 11/18/2024 1:00 PM Anupam LEÓN DEXA Final Resul t from Last 3 Months or Most Recently Relevant to Health Maintenance Insurance MEDICARE [facility] Care Teams Purchasing Manager/Sales Relationship Specialty Start Date End Date Anupam Baron APNP [address] [place] [id number] PCP - General NURSE PRACTITIONER 03/17/20
--- OUTSIDE RECORDS SUMMARY | 2025-04-25 14:45 | XMS_ITS | Encounter Summary ---
Author Organization [facility] Address [facility] [place] [address] Care Team Providers Care Corporate General Manager Name Role Phone Kyleigh Baron Primary Care Provider [phone] [phone] Encounter Details Date Type Department Care Team (Late st Contact Info) Description 01/23/2022 [employer] Message Enc [facility] Medical Group Family & Internal Medicine [facility] [address] [place] [address] Kyleigh Baron APNP [address] [place] [address] follow up Social History Tobacco Use Types Packs/Day Years Used Date Smoking Tobacco: Never Smokeless Tobacco: Never Alcohol Use Standard Drinks/Week Comments Yes 3.3 (1 standard drink = 0.6 oz p ure alcohol) 1 x per week PHQ-2 Answer Date Recorded PHQ-2 Score - If the patient scores above 3, please move on to questions 3-9 0 09/14/2021 Comments Unknown Sex and Gender Information Value Date Recorded Sex Assigned at Female 11/10/2024 10:18 AM WELDING ROBOT OPERATOR Legal Sex Female 10:26 AM CDT Gender Identity Female 01/06/2022 6:23 AM CDT Sexual Orientation Straight 01/06/2022 6: 23 AM CDT COVID-19 Exposure Response Date Recorded In the last 10 days, have yo u been in contact with someone who was confirmed or suspected to have Coronavirus/COVID-19? No / Unsure 01/24/2022 10:34 AM CDT documented as of this encounter Plan of Treatment Not on file documented as of this encounter Visit Diagnoses Not on filedocumented in this encounter Additional Health Concerns Infection Onset Date Last Indicated Resolved Time COVID-19 Rule Out 06/19/2023 06/19/2023 06/19/2023 11:26 AM CDT COVID-19 Rule Out 06/19/2023 06/19/2023 06/20/2023 6:05 PM CDT Respiratory Rule Out 11/26/2024 11/26/2024 025 1:26 PM WELDING ROBOT OPERATOR Respiratory Rule Out 02/24/2025 02/24/2025 025 11:31 AM CDT Assessment Noted Time PHQ-9 Depression Total Score: 0 09/14/20 21 12:22 PM WELDING ROBOT OPERATOR documented as of this encounter Care Teams Corporate General Manager Relationship Specialty Start Date End Date Kyleigh Baron APNP [address] [place] [id number] PCP - General NURSE PRACTITIONER 03/17/20 documented as of this encounter
--- OUTSIDE RECORDS SUMMARY | 2025-04-25 14:45 | XMS_ITS | Encounter Summary ---
Author Organization [facility] Address [facility] [place] [address] Care Team Providers Care Pet Training Instructor Name Role Phone Kyleigh Baron Primary Care Provider [phone] [phone] Encounter Details Date Type Department Care Team (Late st Contact Info) Description 05/06/2020 Qiwi Postt Message Enc [facility] Medical Group Family & Internal Medicine [facility] [address] [place] [address] Kyleigh Baron APNP [address] [place], [place] [phone] RE: Medication Questions Social History Tobacco Use Types Packs/Day Years Used Date Smoking Tobacco: Never Smokeless Tobacco: Never Alcohol Use Standard Drinks/Week Comments Yes 6.7 (1 standard drink = 0.6 oz p ure alcohol) PHQ-2 Answer Date Recorded PHQ-2 Score 0 03/17/2020 Comments Unknown Sex and Gender Information Value Date Recorded Sex Assigned at Female 11/10/2024 10:18 AM AGRICULTURAL EQUIPMENT SALES MANAGER Legal Sex Female 10:26 AM CDT Gender [...] Rule Out 08/20/2020 08/21/2020 08/30/2020 2:30 PM AGRICULTURAL EQUIPMENT SALES MANAGER COVID-19 Rule Out 06/19/2023 06/19/2023 06/19/2023 11:26 AM CDT COVID-19 Rule Out 06/19/2023 06/19/2023 06/20/2023 6:05 PM CDT Respiratory Rule Out 11/26/2024 11/26/2024 025 1:26 PM AGRICULTURAL EQUIPMENT SALES MANAGER Respiratory Rule Out 02/24/2025 02/24/2025 025 11:31 AM CDT documented as of this encounter Care Teams Pet Training Instructor Relationship Specialty Start Date End Date Kyleigh Baron APNP [address] [place] [address] PCP - General NURSE PRACTITIONER 03/17/20 documented as of this encounter
--- OUTSIDE RECORDS SUMMARY | 2025-04-25 14:45 | XMS_ITS | Encounter Summary ---
Author Organization [facility] Address [address] [place] [address] Care Team Providers Care Appliquer Zigzag Name Role Phone Kyleigh Baron Primary Care Provider +1 [phone] Reason for Visit * Reason Onset Date Comments Medication 03/27/2022 Encounter Details Date Type Department Care Team (Late st Contact Info) Description 03/27/2022 [employer] Message Enc [facility] Medical Group Family & Internal Medicine [facility] [address] [place] [address] Kyleigh Baron APNP [address] [place] [address] medication Social History Tobacco Use Types Packs/Day Years [...] Sex Assigned at Female 11/10/2024 10:18 AM CLINICAL QUALITY ASSURANCE SPECIALIST Legal Sex Female 10:26 AM CDT Gender Identity Female 01/06/2022 6:23 AM CDT Sexual Orientation Straight 01/06/2022 6: 23 AM CDT COVID-19 Exposure Response Date Recorded In the last 10 days, have yo u been in contact with someone who was confirmed or suspected to have Coronavirus/COVID-19? Unable to assess 03/22/2022 6:41 AM CDT documented as of this encounter Progress Notes * Jodee Cancino MA - 03/28/2022 10:05 AM CDT Left message saying medication (augmentin) was sent to the pharmacy. BB 03/28/2022 * ROMELIA Miranda - 03/27/2022 6:05 PM CDT amox-clav (Augmentin) sent over to pt's pharmacy. * ROMELIA Miranda - 03/27/2022 6:04 PM CDTFrom: Gauri Bill To: Kyleigh Baron Sent: 03/27/2022 11:54 AM CDT Subject: medication Rob Arizmendi I'll try to make this brief. Sunday I went to the [facility] and was diagnosed with bronchitis. Ihad a bad reaction to the prescription, Doxycycline Monohydrate - Nausea and vomiting. Could you prescribe something else for me or would you rather I make an appointment? My pharmacy is [facility]. documented in this encounter Plan of Treatment Not on file documented as of this encounter Visit Diagnoses Diagnosis Bronchitis- Primary Bronchitis, not specified as acute or chronic documented in this encounter Additional Health Concerns Infection Onset Date Last Indicated Resolved Time COVID-19 Rule Out 06/19/2023 06/19/2023 06/19/2023 11:26 AM CDT COVID-19 Rule Out 06/19/2023 06/19/2023 06/20/2023 6:05 PM CDT Respiratory Rule Out 11/26/2024 11/26/2024 025 1:26 PM CLINICAL QUALITY ASSURANCE SPECIALIST Respiratory Rule Out 02/24/2025 02/24/2025 025 11:31 AM CDT Assessment Noted Time PHQ-9 Depression Total Score: 0 09/14/20 21 12:22 PM CLINICAL QUALITY ASSURANCE SPECIALIST documented as of this encounter Care Teams Appliquer Zigzag Relationship Specialty Start Date End Date Kyleigh Baron APNP [address] [place] [id number] PCP - General NURSE PRACTITIONER 03/17/20 documented as of this encounter
--- OUTSIDE RECORDS SUMMARY | 2025-04-25 14:45 | XMS_ITS | Encounter Summary ---
Author Organization [facility] Address [facility] [place] [address] Care Team Providers Care Residential Appliance Repair Technician Name Role Phone Kyleigh Baron Primary Care Provider [phone] Encounter Details Date Type Department Care Team (Late st Contact Info) Description 10/11/[address] [facility] Family & Internal Medicine [facility] [address] [place] [address] Kyleigh Baron APNP [address] [place] [address] test result Social History Tobacco Use Types Packs/Day Years [...] Sex Assigned at Female 11/10/2024 10:18 AM INSPECTOR WREATH Legal Sex Female 10:26 AM CDT Gender Identity Female 01/06/2022 6:23 AM CDT Sexual Orientation Straight 01/06/2022 6: 23 AM CDT COVID-19 Exposure Response Date Recorded In the last 10 days, have yo u been in contact with someone who was confirmed or suspected to have Coronavirus/COVID-19? No / Unsure 10/11/2022 11:35 AM INSPECTOR WREATH documented as of this encounter Plan of Treatment Not on file documented as of this encounter Visit Diagnoses Not on filedocumented in this encounter Additional Health Concerns Infection Onset Date Last Indicated Resolved Time COVID-19 Rule Out 06/19/2023 06/19/2023 06/19/2023 11:26 AM CDT COVID-19 Rule Out 06/19/2023 06/19/2023 06/20/2023 6:05 PM CDT Respiratory Rule Out 11/26/2024 11/26/2024 025 1:26 PM INSPECTOR WREATH Respiratory Rule Out 02/24/2025 02/24/2025 025 11:31 AM CDT Assessment Noted Time PHQ-9 Depression Total Score: 0 09/14/20 21 12:22 PM INSPECTOR WREATH documented as of this encounter Care Teams Residential Appliance Repair Technician Relationship Specialty Start Date End Date Kyleigh Baron APNP [address] [place] [address] PCP - General NURSE PRACTITIONER 03/17/20 documented as of this encounter
--- OUTSIDE RECORDS SUMMARY | 2025-04-25 14:45 | XMS_ITS | Encounter Summary ---
Author Organization [place] Address [facility] [place] [address] Care Team Providers Care Inker And Opaquer Name Role Phone Kyleigh Baron Primary Care Provider [phone] Encounter Details Date Type Department Care Team (Late st Contact Info) Description 09/16/2021 Clearhaust Message Enc [facility] Family & Internal Medicine [facility] [address] [place] [address] Kyleigh Baron APNP [address] [place], [place] [id number] follow up to last visit Social History Tobacco Use Types Packs/Day Years [...] Sex Assigned at Female 11/10/2024 10:18 AM ASSEMBLY DEPARTMENT SUPERVISOR Legal Sex Female 10:26 AM CDT Gender Identity Female 01/06/2022 6:23 AM CDT Sexual Orientation Straight 01/06/2022 6: 23 AM CDT COVID-19 Exposure Response Date Recorded In the last month, have you been in contact with someone who was confirmed or suspected to have Coronavirus / COVID-19? No / Unsure 09/13/2021 1:11 PM ASSEMBLY DEPARTMENT SUPERVISOR documented as of this encounter Plan of Treatment Not on file documented as of this encounter Visit Diagnoses Not on filedocumented in this encounter Additional Health Concerns Infection Onset Date Last Indicated Resolved Time COVID-19 Rule Out 06/19/2023 06/19/2023 06/19/2023 11:26 AM CDT COVID-19 Rule Out 06/19/2023 06/19/2023 06/20/2023 6:05 PM CDT Respiratory Rule Out 11/26/2024 11/26/2024 025 1:26 PM ASSEMBLY DEPARTMENT SUPERVISOR Respiratory Rule Out 02/24/2025 02/24/2025 025 11:31 AM CDT Assessment Noted Time PHQ-9 Depression Total Score: 0 09/14/20 21 12:22 PM ASSEMBLY DEPARTMENT SUPERVISOR documented as of this encounter Care Teams Inker And Opaquer Relationship Specialty Start Date End Date Kyleigh Baron APNP [address] [place] [id number] PCP - General NURSE PRACTITIONER 03/17/20 documented as of this encounter
--- NOTE | 2025-04-25 15:09 | ED_ITS ---
HPI - Dizziness General Chief Complaint: Dizziness Stated Complaint: Lightheaded, nausea, headache Related Data Home Medications ?Medication ?Instructions ?Recorded ?Confirmed ?Last Taken ?Type levothyroxine 50 mcg tablet 50 mcg PO DAILY 05/08/20 04/05/24 Unknown History cetirizine 10 mg tablet (Zyrtec) 10 mg PO DAILY PRN allergies 02/21/22 04/05/24 Unknown History multivitamin 1 tablet PO DAILY 02/21/22 04/05/24 Unknown History losartan 25 mg tablet 25 mg PO DAILY 03/06/22 04/05/24 Unknown History alendronate 70 mg tablet 70 mg PO WEEKLY 11/02/22 04/05/24 Unknown History calcium carbonate (Calcium 600) 600 mg PO BID 11/02/22 04/05/24 Unknown History ttbujflq-fbi-mmwtn acid 0.4 1 tablet PO DAILY 11/02/22 04/05/24 Unknown History mg-lycopene 300 mcg-lutein 250 mcg tablet (Centrum Silver) albuterol sulfate 90 mcg/actuation inhalation 04/25/25 Unknown History aerosol inhaler azelastine 137 mcg (0.1 %) nasal intranasal 04/25/25 Unknown History spray Allergies Allergy/AdvReac Type Severity Reaction Status Date / Time Cephalosporins Allergy Severe RASH Verified 04/25/25 14:07 moxifloxacin (From Avelox) Allergy Mild Unknown Verified 04/25/25 14:07 azithromycin Allergy Unknown Rash Verified 04/25/25 14:07 rifampin Allergy Unknown Hives Verified 04/25/25 14:07 metronidazole AdvReac Diarrhea Verified 04/25/25 14:07 Animal Dander Allergy Unknown Sneezing Uncoded 04/25/25 14:07 DUST MITES Allergy Unknown Sneezing Uncoded 04/25/25 14:07 [facility] Past Medical History Medical History Arthritis of left knee History of stress test Hypertension History of torn meniscus of left knee Tenosynovitis of wrist flexor Right rotator cuff tear Tear of medial meniscus of left knee Hypothyroid Arthritis GERD (gastroesophageal reflux disease) Diverticulosis Diverticulitis Surgical History Surgical History Hx of removal of cyst (~2020) from the throat Hx of cataract surgery (~2018) Status post brachioplasty (~2007) H/O rhytidectomy (~2002) H/O carpal tunnel repair (~1993) History of hysterectomy (~1991) S/P right rotator cuff repair Status post breast reduction (~2012) Family History Family History Father Family history of cardiovascular disease, Onset Age: 80 Mother Diabetes mellitus Social History Social History Smoking status: Never smoker Alcohol intake: current Drinks per week: 1 Substance use: never Lack of Transportation: No Lack of Food: Never True Current Housing: I Have Housing Concerned About Future Housing: No Difficulty Paying Gas/Electric Bills: No Difficulty Paying for Meds: No Currently Unemployed: No Education: Bachelor's Degree Difficulty w/ Childcare or Family Care: No Living arrangements: with family Gender identity (if verbalized by the patient): Female Spiritual care concerns: No Course Vital Signs Vital signs: Vital Signs Temperature 36.2 C L 04/25/25 14:44 Pulse Rate 80 04/25/25 14:44 Respiratory Rate 18 04/25/25 14:44 Blood Pressure 204/88 H 04/25/25 14:44 Pulse Oximetry 100 04/25/25 14:44 Oxygen Delivery Room Air 04/25/25 14:44 Temperature 36.2 C L 04/25/25 14:44 Pulse Rate 80 04/25/25 14:44 Respiratory Rate 18 04/25/25 14:44 Blood Pressure 204/88 H 04/25/25 14:44 Pulse Oximetry 100 04/25/25 14:44 Oxygen Delivery Room Air 04/25/25 14:44 MDM - Dizziness MDM Narrative Medical decision making narrative: HPI Labs Ordered: Imaging Ordered: Medications Ordered: Results: Patient's CBC indicates white blood cell count of 20 Diagnosis: High blood pressure, atypical chest pain Risks: HEART score, PECARN score, CURB-65 score Consults: Patient Education/Shared MDM: Results of lab work shared with patient. They en dorses improvement of symptoms following medication administration. Patient strongly advised to maintain hydration status upon discharge and follow-up with their PCP as soon as possible. They will be discharged home with a prescription for . Strict return precautions provided. Patient verbalized understanding and is in agreement with plan. Vital signs stable at time of discharge. All questions answered. Discharge Plan Discharge Additional Instructions: Please return to the ER with any worsening symptoms. Follow-up with primary care provider as soon as possible. Take all medications as prescribed, including regularly scheduled medications. Patient Language: Occitan Prescriptions: No Action azelastine 137 mcg (0.1 %) spray,non-aerosol INTRANASAL albuterol sulfate 90 mcg/actuation HFA aerosol inhaler INHALATION levothyroxine 50 mcg tablet 50 mcg PO DAILY polymyxin B sulf-trimethoprim [Polytrim] 10,000 unit- 1 mg/mL drops 1 drp LEFT EYE Q4H 7 Days Qty: 10 0RF Rx Instructions: while awake; do not exceed 6 doses in 24 hours doxycycline hyclate 100 mg capsule 100 mg PO BID 7 Days Qty: 14 0RF benzonatate 200 mg capsule 200 mg PO TID PRN (Reason: cough) Qty: 20 0RF calcium carbonate [Calcium 600] 600 mg calcium (1,500 mg) tablet 600 mg PO BID Centrum Silver 0.4 mg-300 mcg- 250 mcg tablet 1 tablet PO DAILY alendronate 70 mg tablet 70 mg PO WEEKLY cetirizine [Zyrtec] 10 mg tablet 10 mg PO DAILY PRN (Reason: allergies) multivitamin Tablet 1 tablet PO DAILY losartan 25 mg tablet 25 mg PO DAILY Follow-up/Referrals: Loraine,DENTON Arizmendi [Primary Care Provider] -
--- NOTE | 2025-04-25 15:36 | ECG_ITS ---
Test Date: 2025-04-25 14:16:01 Measurements Intervals Bishop Rate: 85 P: 79 DE: 187 QRS: -14 QRSD: 88 T: 63 QT: 371 QTc: 442 Interpretive Statements SINUS RHYTHM WITH OCCASIONAL SUPRAVENTRICULAR PREMATURE COMPLEXES LOW QRS VOLTAGE IN EXTREMITY LEADS [QRS DEFLECTION < 0.5 mV IN LIMB LEADS] No previous ECG available for comparison Electronically Signed On 04-26-2025 14:11:53 CDT by Tino Stanley M.D.
--- OUTSIDE RECORDS SUMMARY | 2025-04-25 15:42 | XMS_ITS | Encounter Summary ---
Author Organization [facility] Address [facility] [place] [address] Care Team Providers Care Steam Room Attendant Name Role Phone Kyleigh Baron Primary Care Provider [phone] [phone] Encounter Details Date Type Department Care Team (Late st Contact Info) Description 05/06/2020 Arts & Analyticst Message Enc [facility] Family & Internal Medicine [facility] [address] [place] [address] Kyleigh Baron APNP [address] [place], [place] [id number] Question Social History Tobacco Use Types Packs/Day Years Used Date Smoking Tobacco: Never Smokeless Tobacco: Never Alcohol Use Standard Drinks/Week Comments Yes 6.7 (1 standard drink = 0.6 oz p ure alcohol) PHQ-2 Answer Date Recorded PHQ-2 Score 0 03/17/2020 Comments Unknown Sex and Gender Information Value Date Recorded Sex Assigned at Female 11/10/2024 10:18 AM MALLET AND DIE CUTTER Legal Sex Female 10:26 AM CDT Gender [...] Rule Out 08/20/2020 08/21/2020 08/30/2020 2:30 PM MALLET AND DIE CUTTER COVID-19 Rule Out 06/19/2023 06/19/2023 06/19/2023 11:26 AM CDT COVID-19 Rule Out 06/19/2023 06/19/2023 06/20/2023 6:05 PM CDT Respiratory Rule Out 11/26/2024 11/26/2024 025 1:26 PM MALLET AND DIE CUTTER Respiratory Rule Out 02/24/2025 02/24/2025 025 11:31 AM CDT documented as of this encounter Care Teams Steam Room Attendant Relationship Specialty Start Date End Date Kyleigh Baron APNP [address] [place] [address] PCP - General NURSE PRACTITIONER 03/17/20 documented as of this encounter
--- OUTSIDE RECORDS SUMMARY | 2025-04-25 15:42 | XMS_ITS | Encounter Summary ---
Author Organization [facility] Address [facility] [place] [address] Care Team Providers Care Afternoon Babysitter Name Role Phone Kyleigh Baron Primary Care Provider [phone] [phone] Encounter Details Date Type Department Care Team (Late st Contact Info) Description 08/11/2021 Neurologixt Message Enc [facility] Family & Internal Medicine [facility] [address] [place] [address] Kyleigh Baron APNP [address] [place] [address] Question Social History Tobacco Use [...] Sex Assigned at Female 11/10/2024 10:18 AM DESKTOP ARCHITECT Legal Sex Female 10:26 AM CDT Gender [...] Rule Out 11/26/2024 11/26/2024 025 1:26 PM DESKTOP ARCHITECT Respiratory Rule Out 02/24/2025 02/24/2025 025 11:31 AM CDT documented as of this encounter Care Teams Afternoon Babysitter Relationship Specialty Start Date End Date Kyleigh aBron APNP [address] [place] [address] PCP - General NURSE PRACTITIONER 03/17/20 documented as of this encounter
--- OUTSIDE RECORDS SUMMARY | 2025-04-25 15:42 | XMS_ITS | Encounter Summary ---
Author Organization [facility] Address [facility] [place] [address] Care Team Providers Care Front End Developer Javascript Html Css Name Role Phone Kyleigh Baron Primary Care Provider +1 [phone] Encounter Details Date Type Department Care Team (Late st Contact Info) Description 07/09/2022 Zeetlt Message Enc [facility] Family & Internal Medicine [facility] [address] [place] [address] Kyleigh Baron APNP [address] [place] [address] Thyroid test Social History Tobacco [...] Sex Assigned at Female 11/10/2024 10:18 AM PILLAR MAN Legal Sex Female 10:26 AM CDT Gender [...] Rule Out 11/26/2024 11/26/2024 025 1:26 PM PILLAR MAN Respiratory Rule Out 02/24/2025 02/24/2025 025 11:31 AM CDT Assessment Noted Time PHQ-9 Depression Total Score: 0 09/14/20 21 12:22 PM PILLAR MAN documented as of this encounter Care Teams Front End Developer Javascript Html Css Relationship Specialty Start Date End Date Kyleigh Baron APNP [address] [place] [phone] PCP - General NURSE PRACTITIONER 03/17/20 documented as of this encounter
--- OUTSIDE RECORDS SUMMARY | 2025-04-25 15:42 | XMS_ITS | Encounter Summary ---
Author Organization [employer] Address [address] [place] [address] Care Team Providers Care Barrel Washer Name Role Phone Moreno Muller MD Primary Care Provider Fany vailable Encounter Details Date Type Department Care Team (Late st Contact Info) Description 06/18/2003 Outpatient Historical [facility] Support [facility]. (Adt Cardiology-[facility]) [address] [place] [phone] Eleanor Rucker MD Social History Tobacco Use Types Packs/Day Years Used Date Smoking Tobacco: Never Assessed Comments Unknown Sex and Gender Information Value Date Recorded Sex Assigned at Not on file Legal Sex Female 4:50 AM DRIVER MERCHANDISER Gender Identity Not on file Sexual Orientation Not on file documented as of this encounter Plan of Treatment Not on file documented as of this encounter Visit Diagnoses Not on filedocumented in this encounter Care Teams Barrel Washer Relationship Specialty Start Date End Date Moreno Muller MD NO ADDRESS ON FILE PCP - General Family Practice 11/10/14 documented as of this encounter
--- OUTSIDE RECORDS SUMMARY | 2025-04-25 15:42 | XMS_ITS | Encounter Summary ---
Author Organization [facility] Address [facility] [place] [address] Care Team Providers Care Sand Technologist Name Role Phone Kyleigh Baron Primary Care Provider +1 [phone] Encounter Details Date Type Department Care Team (Late st Contact Info) Description 02/03/2021 [employer] Message Enc [facility] Family & Internal Medicine [facility] [address] [place] [address] Kyleigh Baron APNP [address] [place] [address] Medication Questions Social History Tobacco [...] Sex Assigned at Female 11/10/2024 10:18 AM SWITCHBOARD RECEPTIONIST Legal Sex Female 10:26 AM CDT Gender [...] Rule Out 11/26/2024 11/26/2024 025 1:26 PM SWITCHBOARD RECEPTIONIST Respiratory Rule Out 02/24/2025 02/24/2025 025 11:31 AM CDT documented as of this encounter Care Teams Sand Technologist Relationship Specialty Start Date End Date Kyleigh Baron APNP [address] [place] [address] PCP - General NURSE PRACTITIONER 03/17/20 documented as of this encounter
--- OUTSIDE RECORDS SUMMARY | 2025-04-25 15:42 | XMS_ITS | Referral Summary ---
Author Organization [facility] Address [address] [place] [address] Care Team Providers Care Operations And Maintenance Specialist Name Role Phone Kyleigh Baron Primary Care Provider + Encounters Date Type Department Care Team Description 04/23/2025 Documentation [facility] Otolaryngology [address] [place] [address] Medical Office Building [address] [address] Samanta Blackwell Hearing Aid Evaluation 04/02/2025 3:00 PM CDT Procedure visit [facility] Otolaryngology [address] [place] [address] Medical Office Building [address] [address] Monica Gutierrez Au.D. Sensorineural hearing [...] ns:hypothyroidi sm Take 75 mcg by mouth service desk analyst before breakfast Active famotidine (PEPCID) 20 mg tabletIndicatio ns:GERD Take 20 mg by mouth daily as needed Active cetirizine (ZyrTEC) 10 mg tabletIndicatio ns:Allergic Rhinitis Take 10 mg by mouth service desk analyst before breakfast Active cholecalciferol (VITAMIN D-3) 2,000 unit capsuleIndicati ons:hypoparathy roidism,Vitamin D Deficiency Take 2,000 Units by mouth service desk analyst before breakfast Active fluticasone propionate (FLONASE) 50 mcg/actuation nasal sprayIndication s:Allergic Rhinitis Administer 1 spray into each nostril service desk analyst before breakfast Active cromolyn (NASALCHROM) 5.2 mg/spray [...] on file Legal Sex Female 8:11 PM PRODUCT PLANNER Gender Identity Not on file Sexual Orientation [...] on file Medical Devices Implanted Type Area Fruit Dumper Device Identifier Shelf Expiration Date Model / Serial / Lot [employer] [id number] Tecnis Protec 6mm 13mm 1 Piece Multifocal Anterior Aspheric Uv - [id number] - [id number] Implanted:Qty: 1 on 02/26/2019 by Yonis Smith MD at [facility] Lens Left: Eye [employer] 04/15/2021 [id number] / [id number] / 0 [id number] +19.0d Implanted:Qty: 1 on 03/26/2019 by Yonis Smith MD at [facility] Right: Lens [employer] 10/15/2021 [id number] / [id number] / Description:[employer] Presbyopia Iol Rezoom (Pt Pays) - [id number] Implanted:Qty: 1 on 03/26/2019 by Yonis Smith MD at [facility] Right: Lens [employer] NXG1, [id number], ZMA00, ZMB00, ZXT, ZXR / / Presbyopia Iol Rezoom Avg - [id number] Implanted:Qty: 1 on 03/26/2019 by Yonis Smith MD at [facility] Right: Lens [employer] NXG1, [id number], ZMA00, ZMB00, ZXT, ZXR / / Procedures Procedure Name Priority Date/Time Associated Diagnosis Comments AUDBASE RESULTS 04/02/2025 2:51 PM CDT from Last 3 Months Results * AudBase Results (04/02/2025 2:51 PM CDT) Provider Scanning AUDIOLOGY SERVICES ORDERABLES Final Result from Last 3 Months Insurance MEDICARE [facility] MEDICARE [facility] FEDERAL Advance Directives For more information, please contact: [phone] * Full Code (Latest Code Status on File) Date Activated Date Inactivated Comments 03/26/2019 7:39 AM 03/26/2019 2:58 PM * Full Code Date Activated Date Inactivated Comments 02/26/2019 7:19 AM 02/26/2019 2:33 PM Care Teams Operations And Maintenance Specialist Relationship Specialty Start Date End Date Kyleigh Baron PA [address] [place] [phone] PCP - General Nurse Practitioner 04/02/25
--- OUTSIDE RECORDS SUMMARY | 2025-04-25 15:42 | XMS_ITS | Encounter Summary ---
Author Organization [facility] Address [facility] [place] [address] Care Team Providers Care Gunner Mate Name Role Phone Kyleigh Baron Primary Care Provider +1 [phone] Encounter Details Date Type Department Care Team (Late st Contact Info) Description 09/16/2021 Bleacherst Message Enc [facility] Medical Group Family & Internal Medicine [facility] [address] [place] [address] Kyleigh Baron APNP [address] [place], [place] [phone] follow up to last visit Social History [...] Sex Assigned at Female 11/10/2024 10:18 AM PULMONARY FELLOW Legal Sex Female 10:26 AM CDT Gender Identity Female 01/06/2022 6:23 AM CDT Sexual Orientation Straight 01/06/2022 6: 23 AM CDT COVID-19 Exposure Response Date Recorded In the last month, have you been in contact with someone who was confirmed or suspected to have Coronavirus / COVID-19? No / Unsure 09/13/2021 1:11 PM PULMONARY FELLOW documented as of this encounter Plan of Treatment Not on file documented as of this encounter Visit Diagnoses Not on filedocumented in this encounter Additional Health Concerns Infection Onset Date Last Indicated Resolved Time COVID-19 Rule Out 06/19/2023 06/19/2023 06/19/2023 11:26 AM CDT COVID-19 Rule Out 06/19/2023 06/19/2023 06/20/2023 6:05 PM CDT Respiratory Rule Out 11/26/2024 11/26/2024 025 1:26 PM PULMONARY FELLOW Respiratory Rule Out 02/24/2025 02/24/2025 025 11:31 AM CDT Assessment Noted Time PHQ-9 Depression Total Score: 0 09/14/20 21 12:22 PM PULMONARY FELLOW documented as of this encounter Care Teams Gunner Mate Relationship Specialty Start Date End Date Kyleigh Baron APNP [address] [place] [phone] PCP - General NURSE PRACTITIONER 03/17/20 documented as of this encounter
--- OUTSIDE RECORDS SUMMARY | 2025-04-25 15:42 | XMS_ITS | Clinical Summary ---
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 Temp 101.0 this morning. Taking OTC Delsym./At-home COVID test negative last night./) 02/24/2025 Results Follow-Up [facility] Medical [facility] Family & Internal Medicine [address] [phone] Anupam Baron APNP CORONAVIRUS (COVID-19) [...] 50 MCG/0.5 ML (SPIKEVAX) 06/23/2023 MODERNA COVID-19 (GATE PERSON JESUS KAREN), MRNA, LNP-S, PF, 50 MCG/ [...] Sex Assigned at Female 11/10/2024 10:18 AM PIECE DYE WORKER Legal Sex Female 10:26 AM CDT Gender Identity Female 01/06/2022 6:23 AM CDT Sexual Orientation Straight 01/06/2022 6: 23 AM CDT Last Filed Vital Signs Vital Sign Reading Time Taken Comments Blood Pressure 136/70 11/26/2024 10:43 AM PIECE DYE WORKER Pulse 75 11/26/2024 10:43 AM PIECE DYE WORKER Temperature 36.4 C (97.5 F) 11/26/2024 10:43 AM PIECE DYE WORKER Respiratory Rate 16 11/26/2024 10:4 3 AM PIECE DYE WORKER Oxygen Saturation 95% 11/26/2024 10: 43 AM PIECE DYE WORKER Inhaled Oxygen Concentration - - Weight 59.8 kg (131 lb 12.8 oz) 025 10:43 AM PIECE DYE WORKER Height 157.5 cm (5' 2) 11/26/2024 10:4 3 AM PIECE DYE WORKER Body Mass Index 24.11 11/26/2024 10:43 AM PIECE DYE WORKER Plan of Treatment Health Maintenance Due Date Last Done Comments Annual Medicare Wellness Visit 2008 Zoster Vaccines (2 of 2) 12/13/2018 10/18/2018 COVID-19 Vaccine ( season) 2024 12/13/2023, 06/23/2023, 03/17/2023, Additional history exists PHQ-2 (Physician [place]) 10/01/2024 11/02/2023 DTaP, Tdap and Td Vaccines [...] BONE DENSITY/DEXA Routine 11/18/2024 12: 55 PM PIECE DYE WORKER Age-related osteoporosis without current pathological fracture from Last 3 Months or Most Recently Relevant to Health Maintenance Results * (ABNORMAL) CORONAVIRUS (COVID-19) INFLUENZA A & B ANTIGEN IA PANEL (02/24/2025) Pathologist [facility] CORONAVIRUS ANTIGEN IA NEGATIVE NEGATIVE [facility] INFLUENZA A NEGATIVE NEGATIVE [facility] INFLUENZA B NEGATIVE NEGATIVE [facility] Internal Control: VALID VALID [facility] NASAL STRUCTURE / Unknown 02/24/2025 us Anupam LEÓN MICROBIOLOGY - GENERAL EDWARDO BELTRAN Edited Result - Final [facility] [address] [place] [address], * BONE DENSITY/DEXA (11/18/2024 12:55 PM PIECE DYE WORKER) Anatomical Region Laterality Modality Bone Mammography 11/18/2024 1:00 PM PIECE DYE WORKER Impressions 11/18/2024 1:02 PM PIECE DYE WORKER IMPRESSION: WHO Classification: Osteopenia. RECOMMENDATIONS: All patients [...] 11/18/2024 1:00 PM Narrative 11/18/2024 1:02 PM PIECE DYE WORKER [facility] [place] [address] EXAMINATION: BONE DENSITY/DEXA INDICATIONS: Age-related osteoporosis without [...] Procedure Note Mark Easton MD - 11/18/2024 [facility] [place] [address] EXAMINATION: BONE DENSITY/DEXA INDICATIONS: Age-related osteoporosis without [...] Recently Relevant to Health Maintenance Insurance MEDICARE [facility] Care Teams Library Paraprofessional Relationship Specialty Start Date End Date Anupam Baron APNP [address] [place] [address] PCP - General NURSE PRACTITIONER 03/17/20
--- OUTSIDE RECORDS SUMMARY | 2025-04-25 15:42 | XMS_ITS | Encounter Summary ---
Author Organization [facility] Address [facility] [place] [address] Care Team Providers Care Complaint Evaluation Officer Name Role Phone Kyleigh Baron Primary Care Provider [phone] [phone] Encounter Details Date Type Department Care Team (Late st Contact Info) Description 05/06/2020 [employer] Veh[employer] Message Enc [facility] Medical Group Family & Internal Medicine [facility] [address] [place] [address] Kyleigh Baron APNP [address] [place], [place] [phone] RE: Medication Questions Social History Tobacco Use Types Packs/Day Years Used Date Smoking Tobacco: Never Smokeless Tobacco: Never Alcohol Use Standard Drinks/Week Comments Yes 6.7 (1 standard drink = 0.6 oz p ure alcohol) PHQ-2 Answer Date Recorded PHQ-2 Score 0 03/17/2020 Comments Unknown Sex and Gender Information Value Date Recorded Sex Assigned at Female 11/10/2024 10:18 AM MEDICAL SALES CONSULTANT Legal Sex Female 10:26 AM CDT Gender [...] Rule Out 08/20/2020 08/21/2020 08/30/2020 2:30 PM MEDICAL SALES CONSULTANT COVID-19 Rule Out 06/19/2023 06/19/2023 06/19/2023 11:26 AM CDT COVID-19 Rule Out 06/19/2023 06/19/2023 06/20/2023 6:05 PM CDT Respiratory Rule Out 11/26/2024 11/26/2024 025 1:26 PM MEDICAL SALES CONSULTANT Respiratory Rule Out 02/24/2025 02/24/2025 025 11:31 AM CDT documented as of this encounter Care Teams Complaint Evaluation Officer Relationship Specialty Start Date End Date Kyleigh Baron APNP [address] [place] [address] PCP - General NURSE PRACTITIONER 03/17/20 documented as of this encounter
--- OUTSIDE RECORDS SUMMARY | 2025-04-25 15:42 | XMS_ITS | Clinical Summary ---
Author Organization [facility] Address [address] [place] [address] Care Team Providers Care Therapist Speech Name Role Phone Unavailable Primary Care Provider Unavailabl e Source Comments [facility],non-owned Affiliates and Associated Physician Practices is amultiple site organization consisting of ambulatory clinics and hospital sitesin [place], [place], [place] and [place]. This disclosure is being madepursuant to the Care Everywhere program and may not contain all information available regarding this patient. Last updated 18.[facility] [employer] Social History Tobacco Use Types Packs/Day Years Used Date Smoking Tobacco: Never Assessed Comments Unknown Sex and Gender Information Value Date Recorded Sex Assigned at Not on file Legal Sex Female 6:17 AM FORGESMITH Gender Identity Not on file Sexual Orientation [...] patient's age to complete this topic Insurance [facility]
--- OUTSIDE RECORDS SUMMARY | 2025-04-25 15:42 | XMS_ITS | Clinical Summary ---
Author Organization [facility] Address [address] [place] [address] Phone Care Team Providers Care It Network Architect Name Role Phone Moreno Muller MD Primary [...] on file Legal Sex Female 4:50 AM PROCESS IMPROVEMENT ANALYST Gender Identity Not on file Sexual Orientation Not on file Occupation Industry Job Start Date Job End Date Not on file Not on file Not on file Not on file Last Filed Vital Signs Vital Sign Reading Time Taken Comments Blood Pressure 110/45 11/19/2014 7:37 AM PROCESS IMPROVEMENT ANALYST Pulse 82 11/19/2014 7:37 AM PROCESS IMPROVEMENT ANALYST Temperature 35.8 C (96.5 F) 11/19/2014 7:37 AM PROCESS IMPROVEMENT ANALYST Respiratory Rate 16 11/19/2014 7:37 AM PROCESS IMPROVEMENT ANALYST Oxygen Saturation 97% 11/19/2014 7:37 AM PROCESS IMPROVEMENT ANALYST Inhaled Oxygen Concentration - - Weight 62.5 kg (137 lb 12.8 oz) 11/18/2014 6:31 AM PROCESS IMPROVEMENT ANALYST Height 147.3 cm (4' 10) 11/10/2014 11: 03 AM PROCESS IMPROVEMENT ANALYST Body Mass Index 28.8 11/10/2014 11:03 AM PROCESS IMPROVEMENT ANALYST Plan of Treatment Health Maintenance Due Date Last Done Comments DTAP/TDAP/TD VACCINES (1 - Tdap) 1962 PNEUMOCOCCAL VACCINE 50+ YEARS (1 of 1 - PCV) 09/06/19 93 ZOSTER VACCINE (1 of 2) 1993 OSTEOPOROSIS SCREENING 2008 RSV VACCINE (60+ or ) (1 - 1-dose 75+ series) 2018 INFLUENZA VACCINE (#1) 2025 Insurance MEDICARE PART A AND B [facility] Advance Directives For more information, please contact: [phone] * Full Code (Latest Code Status on [...] 8:27 AM 09/25/2012 8:30 AM Care Teams It Network Architect Relationship Specialty Start Date End Date Moreno Muller MD NO ADDRESS ON FILE PCP - General Family Practice 11/10/14
--- OUTSIDE RECORDS SUMMARY | 2025-04-25 15:42 | XMS_ITS | Encounter Summary ---
Author Organization [facility] Address [address] [place] [address] Care Team Providers Care Generator Operator Name Role Phone Kyleigh Baron Primary Care Provider [phone] Reason for Visit * Reason Onset Date Comments Medication 03/27/2022 Encounter Details Date Type Department Care Team (Late st Contact Info) Description 03/27/2022 Hearsay Socialt Message Enc [facility] Medical Group Family & Internal Medicine [facility] [address] [place] [address] Kyleigh Baron APNP [address] [place] [address] medication Social History Tobacco Use [...] Sex Assigned at Female 11/10/2024 10:18 AM BURRER MACHINE Legal Sex Female 10:26 AM CDT Gender [...] this brief. Sunday I went to the [facility] and was diagnosed with bronchitis. Ihad a bad reaction to the prescription, Doxycycline Monohydrate - Nausea and vomiting. Could you prescribe something else for me or would you rather I make an appointment? My pharmacy is [facility]. documented in this encounter Plan of Treatment [...] Rule Out 11/26/2024 11/26/2024 025 1:26 PM BURRER MACHINE Respiratory Rule Out 02/24/2025 02/24/2025 025 11:31 AM CDT Assessment Noted Time PHQ-9 Depression Total Score: 0 09/14/20 21 12:22 PM BURRER MACHINE documented as of this encounter Care Teams Generator Operator Relationship Specialty Start Date End Date Kyleigh Baron APNP [address] [place] [id number] PCP - General NURSE PRACTITIONER 03/17/20 documented as of this encounter
--- OUTSIDE RECORDS SUMMARY | 2025-04-25 15:42 | XMS_ITS | Encounter Summary ---
Author Organization [facility] Address [facility] [place] [address] Care Team Providers Care Solder Leveler Printed Circuit Boards Name Role Phone Kyleigh Baron Primary Care Provider [phone] [phone] Encounter Details Date Type Department Care Team (Late st Contact Info) Description 10/11/2022 Indigeo Virtust Message Enc [facility] Medical Group Family & Internal Medicine [facility] [address] [place] [address] Kyleigh Baron APNP [address] [place] [address] test result Social History Tobacco [...] Sex Assigned at Female 11/10/2024 10:18 AM OSTEOLOGIST Legal Sex Female 10:26 AM CDT Gender Identity Female 01/06/2022 6:23 AM CDT Sexual Orientation Straight 01/06/2022 6: 23 AM CDT COVID-19 Exposure Response Date Recorded In the last 10 days, have yo u been in contact with someone who was confirmed or suspected to have Coronavirus/COVID-19? No / Unsure 10/11/2022 11:35 AM OSTEOLOGIST documented as of this encounter Plan of Treatment Not on file documented as of this encounter Visit Diagnoses Not on filedocumented in this encounter Additional Health Concerns Infection Onset Date Last Indicated Resolved Time COVID-19 Rule Out 06/19/2023 06/19/2023 06/19/2023 11:26 AM CDT COVID-19 Rule Out 06/19/2023 06/19/2023 06/20/2023 6:05 PM CDT Respiratory Rule Out 11/26/2024 11/26/2024 025 1:26 PM OSTEOLOGIST Respiratory Rule Out 02/24/2025 02/24/2025 025 11:31 AM CDT Assessment Noted Time PHQ-9 Depression Total Score: 0 09/14/20 21 12:22 PM OSTEOLOGIST documented as of this encounter Care Teams Solder Leveler Printed Circuit Boards Relationship Specialty Start Date End Date Kyleigh Baron APNP [address] [place] [address] PCP - General NURSE PRACTITIONER 03/17/20 documented as of this encounter
--- OUTSIDE RECORDS SUMMARY | 2025-04-25 15:42 | XMS_ITS | Encounter Summary ---
Author Organization [facility] Address [facility] [place] [address] Care Team Providers Care Fisher Terrapin Name Role Phone LoraineKyleigh ojeda Kira LEÓN Primary Care Provider [phone] [phone] Encounter Details Date Type Department Care Team (Late st Contact Info) Description 03/22/2022 Spontacts Message Enc [facility] Medical Group Family & Internal Medicine [address] [phone] [facility] Provider appointment Social History Tobacco Use Types [...] Sex Assigned at Female 11/10/2024 10:18 AM SYSTEMS PROTECTION TECHNICIAN Legal Sex Female 10:26 AM CDT Gender [...] Rule Out 11/26/2024 11/26/2024 025 1:26 PM SYSTEMS PROTECTION TECHNICIAN Respiratory Rule Out 02/24/2025 02/24/2025 025 11:31 AM CDT Assessment Noted Time PHQ-9 Depression Total Score: 0 09/14/20 21 12:22 PM SYSTEMS PROTECTION TECHNICIAN documented as of this encounter Care Teams Fisher Terrapin Relationship Specialty Start Date End Date Kyleigh Baron APNP [address] [place] [address] PCP - General NURSE PRACTITIONER 03/17/20 documented as of this encounter
--- OUTSIDE RECORDS SUMMARY | 2025-04-25 15:42 | XMS_ITS | Clinical Summary ---
Author Organization [facility] Address [address] [place] [address] Care Team Providers Care Supervisor Labor Gang Name Role Phone Kyleigh Baron Primary Care Provider + Allergies Active Allergy Reactions Criticality Noted Date Comments Azithromycin Rash Medium 09/25/2012 Found in allergy testing Cephalosporins Hives High Diclofenac Nausea & Vomiting Low 11/10/2014 Moxifloxacin Rash Medium 11/10/2014 possible Penicillins Hives High Rifampin Headache,Rash Medium 09/16/2012 Medications levothyroxine (SYNTHROID, LEVOTHROID) 75 mcg tabletIndicatio ns:hypothyroidi sm Take 75 mcg by mouth therapeutic case manager before breakfast Active famotidine (PEPCID) 20 mg tabletIndicatio ns:GERD Take 20 mg by mouth daily as needed Active cetirizine (ZyrTEC) 10 mg tabletIndicatio ns:Allergic Rhinitis Take 10 mg by mouth therapeutic case manager before breakfast Active cholecalciferol (VITAMIN D-3) 2,000 unit capsuleIndicati ons:hypoparathy roidism,Vitamin D Deficiency Take 2,000 Units by mouth therapeutic case manager before breakfast Active fluticasone propionate (FLONASE) 50 mcg/actuation nasal sprayIndication s:Allergic Rhinitis Administer 1 spray into each nostril therapeutic case manager before breakfast Active cromolyn (NASALCHROM) 5.2 mg/spray [...] Department Care Team Description 04/23/2025 Documentation [facility] Otolaryngology [address] Medical Office Building [address] [place] [phone] Samanta Blackwell Hearing Aid Evaluation 04/02/2025 3:00 PM CDT Procedure visit [facility] Otolaryngology [address] [place] [address] Medical Office Building [address] [place] [phone] Monica Gutierrez Au.D. Sensorineural hearing loss, bilateral [...] Shepard's Neuroma Right Foot Cataract Bilateral eyes [place] (hard of hearing) Wears bila teral hearing [...] on file Legal Sex Female 8:11 PM LITERACY COORDINATOR Gender Identity Not on file Sexual Orientation [...] 04/22/2020, 08/20/2017 Medical Devices Implanted Type Area Dry Yard Worker Device Identifier Shelf Expiration Date Model / Serial / Lot [employer] [id number] Tecnis Protec 6mm 13mm 1 Piece Multifocal Anterior Aspheric Uv - [id number] - [id number] Implanted:Qty: 1 on 02/26/2019 by Yonis Smith MD at [facility] Lens Left: Eye [employer] 04/15/2021 [id number] / [id number] / 0 [id number] +19.0d Implanted:Qty: 1 on 03/26/2019 by Yonis Smith MD at [facility] Right: Lens [employer] 10/15/2021 [id number] / [id number] / Description:Guerra Presbyopia Iol Rezoom (Pt Pays) - [id number] Implanted:Qty: 1 on 03/26/2019 by Yonis Smith MD at [facility] Right: Lens [place] [employer] NXG1, [id number], ZMA00, ZMB00, ZXT, ZXR / / Presbyopia Iol Rezoom Avg - [id number] Implanted:Qty: 1 on 03/26/2019 by Yonis Smith MD at [facility] Right: Lens [employer] NXG1, [id number], ZMA00, ZMB00, ZXT, ZXR / / Procedures Procedure Name Priority Date/Time Associated Diagnosis Comments AUDBASE RESULTS 04/02/2025 2:51 PM CDT from Last 3 Months Results * AudBase Results (04/02/2025 2:51 PM CDT) Provider Scanning AUDIOLOGY SERVICES ORDERABLES Final Result from Last 3 Months Insurance MEDICARE [facility] MEDICARE [facility] Advance Directives For more information, please contact: [phone] * Full Code (Latest Code Status on File) Date Activated Date Inactivated Comments 03/26/2019 7:39 AM 03/26/2019 2:58 PM * Full Code Date Activated Date Inactivated Comments 02/26/2019 7:19 AM 02/26/2019 2:33 PM Care Teams Supervisor Labor Gang Relationship Specialty Start Date End Date Kyleigh Baron PA [facility] [place] [address] PCP - General Nurse Practitioner 04/02/25
--- OUTSIDE RECORDS SUMMARY | 2025-04-25 15:42 | XMS_ITS | Encounter Summary ---
Author Organization [facility] Address [facility]ly [facility] [place] [address] Care Team Providers Care Egg Grader Name Role Phone Kyleigh Baron Primary Care Provider +1 [phone] Encounter Details Date Type Department Care Team (Late st Contact Info) Description 10/06/2020 gauzzt Message Enc [facility] Medical Group Family & Internal Medicine [facility] [address] [place] [address] Kyleigh Baron APNP [address] [place] [address] RE: Follow Up/Update Social History [...] Sex Assigned at Female 11/10/2024 10:18 AM DISTRIBUTION A CLASS LINEMAN Legal Sex Female 10:26 AM CDT Gender Identity Female 01/06/2022 6:23 AM CDT Sexual Orientation Straight 01/06/2022 6: 23 AM CDT COVID-19 Exposure Response Date Recorded In the last month, have you been in contact with someone who was confirmed or suspected to have Coronavirus / COVID-19? No / Unsure 10/08/2020 1:50 PM DISTRIBUTION A CLASS LINEMAN documented as of this encounter Plan of Treatment Not on file documented as of this encounter Visit Diagnoses Not on filedocumented in this encounter Additional Health Concerns Infection Onset Date Last Indicated Resolved Time COVID-19 Rule Out 06/19/2023 06/19/2023 06/19/2023 11:26 AM CDT COVID-19 Rule Out 06/19/2023 06/19/2023 06/20/2023 6:05 PM CDT Respiratory Rule Out 11/26/2024 11/26/2024 025 1:26 PM DISTRIBUTION A CLASS LINEMAN Respiratory Rule Out 02/24/2025 02/24/2025 025 11:31 AM CDT documented as of this encounter Care Teams Egg Grader Relationship Specialty Start Date End Date Kyleigh Baron APNP [address] [place] [id number] PCP - General NURSE PRACTITIONER 03/17/20 documented as of this encounter
--- OUTSIDE RECORDS SUMMARY | 2025-04-25 15:42 | XMS_ITS | Encounter Summary ---
Author Organization [facility] Address [facility] [place] [address] Care Team Providers Care Rolling Machine Operator Name Role Phone Kyleigh Baron Primary Care Provider +1 [phone] Encounter Details Date Type Department Care Team (Late st Contact Info) Description 01/23/2022 Maya Medicalt Message Enc [facility] Medical Group Family & Internal Medicine [facility] [address] [place] [address] Kyleigh Baron APNP [address] [place] [address] follow up Social History Tobacco [...] Sex Assigned at Female 11/10/2024 10:18 AM FARM SERVICE CONSULTANT Legal Sex Female 10:26 AM CDT [...] Rule Out 11/26/2024 11/26/2024 025 1:26 PM FARM SERVICE CONSULTANT Respiratory Rule Out 02/24/2025 02/24/2025 025 11:31 AM CDT Assessment Noted Time PHQ-9 Depression Total Score: 0 09/14/20 21 12:22 PM FARM SERVICE CONSULTANT documented as of this encounter Care Teams Rolling Machine Operator Relationship Specialty Start Date End Date Kyleigh Baron APNP [address] [place] [address] PCP - General NURSE PRACTITIONER 03/17/20 documented as of this encounter
--- OUTSIDE RECORDS SUMMARY | 2025-04-25 15:42 | XMS_ITS | Encounter Summary ---
Author Organization [facility] Address [address] [place] [address] Care Team Providers Care Rolling Machine Tender Name Role Phone Moreno Muller MD Primary Care Provider Fany vailable Encounter Details Date Type Department Care Team (Latest Contact Info) Description 07/06/2003 Outpatient Historical HIS PATIENT IN A BED Glenn Paniagua MD [address] [place] [address] SKIN HYPERTRO/ATROPH NOS (Primary Dx) Social History Tobacco Use Types Packs/Day Years Used Date Smoking Tobacco: Never Assessed Comments Unknown Sex and Gender Information Value Date Recorded Sex Assigned at Not on file Legal Sex Female 4:50 AM HAND SOLE SEWER Gender Identity Not on file Sexual Orientation Not on file documented as of this encounter Plan of Treatment Not on file documented as of this encounter Visit Diagnoses Diagnosis Unspecified hypertrophic and atrophic condition of skin- Primary documented in this encounter Care Teams Rolling Machine Tender Relationship Specialty Start Date End Date Moreno Muller MD NO ADDRESS ON FILE PCP - General Family Practice 11/10/14 documented as of this encounter
[2025-04-25 15:59] LABS: Add Urine Microscopic? YES; Appearance Urine Cloudy (Clear); Glucose Urine UA Negative (Negative); Leukocyte Esterase Ur Negative LEU/UL (Negative); Nitrate Urine Negative (Negative); Non Pathogenic Casts 0-2; Specific Grav Ur 1.005 (1.001-1.035)
[2025-04-25 16:23] LABS: Hematocrit 37.5 % (37.0-47.0); Hemoglobin 12.2 g/dL (12.0-15.0); Immature Granulocyte Percent A 0.4 % (0-0.5); Lymphocytes Absolute Auto 1.02 K/mm3 (0.9-3.2); Mean Corpuscular HGB Conc 32.5 g/dl (32-36); Mean Corpuscular Hemoglobin 29.0 pg (26-34); Mean Corpuscular Volume 89.3 fl (80-100); Nucleated Red Blood Cells Absolute Auto 0.000 K/mm3 (0.0-0.012); Nucleated Red Blood Cells Perc 0.0 % (0.0-0.2); Platelet Count Result 231 k/mm3 (150-375); Red Blood Count 4.20 M/mm3 (4.2-5.4); White Blood Count 5.2 K/mm3 (4.5-10.0)
--- NOTE | 2025-04-25 16:45 | ED_ITS ---
HPI - Dizziness General Chief Complaint: Dizziness <Sunni Gudino MD - Last Filed: 04/25/25 22:14> Stated Complaint: Lightheaded, nausea, headache <Sunni Gudino MD - Last Filed: 04/25/25 22:14> Time Seen by Provider: 04/25/25 15:26 <Sunni Gudino MD - Last Filed: 04/25/25 22:14> Source: patient, RN notes reviewed and old records reviewed <Sunni Gudino MD - Last Filed: 04/25/25 22:14> Mode of arrival: ambulatory <Sunni Gudino MD - Last Filed: 04/25/25 22:14> Limitations: no limitations <Sunni Gudino MD - Last Filed: 04/25/25 22:14> History of Present Illness HPI Narrative: This is an 79 year old female with history of hypertension who presents for evaluation of headache and lightheadedness. She reports for the past 3-4 days she has not felt well. She reports mild intermittent posterior headache . She also reports lightheadedness. She checked her blood pressure today and it was 200 systolic. She was seen at urgent care and she was referred to ER. She reports nausea but denies abdominal pain, chest pain, back pain, shortness of breath. She also denies blurred vision, difficulty with speech or focal weakness. She took an extra half dose of her losartan <Sunni Gudino MD - Last Filed: 04/25/25 22:14> Related Data Home Medications: Home Medications ?Medication ?Instructions ?Recorded ?Confirmed ?Last Taken ?Type levothyroxine 50 mcg tablet 50 mcg PO DAILY 05/08/20 04/05/24 Unknown History cetirizine 10 mg tablet (Zyrtec) 10 mg PO DAILY PRN allergies 02/21/22 04/05/24 Unknown History multivitamin 1 tablet PO DAILY 02/21/22 04/05/24 Unknown History losartan 25 mg tablet 25 mg PO DAILY 03/06/22 04/05/24 Unknown History alendronate 70 mg tablet 70 mg PO WEEKLY 11/02/22 04/05/24 Unknown History calcium carbonate (Calcium 600) 600 mg PO BID 11/02/22 04/05/24 Unknown History zywbssvi-mgd-avehc acid 0.4 1 tablet PO DAILY 11/02/22 04/05/24 Unknown History mg-lycopene 300 mcg-lutein 250 mcg tablet (Centrum Silver) albuterol sulfate 90 mcg/actuation inhalation 04/25/25 Unknown History aerosol inhaler azelastine 137 mcg (0.1 %) nasal intranasal 04/25/25 Unknown History spray <Sunni Gudino MD - Last Filed: 04/25/25 22:14> Allergies/Adverse Reactions: Allergies Allergy/AdvReac Type Severity Reaction Status Date / Time Cephalosporins Allergy Severe RASH Verified 04/25/25 14:07 moxifloxacin (From Avelox) Allergy Mild Unknown Verified 04/25/25 14:07 azithromycin Allergy Unknown Rash Verified 04/25/25 14:07 rifampin Allergy Unknown Hives Verified 04/25/25 14:07 metronidazole AdvReac Diarrhea Verified 04/25/25 14:07 Animal Dander Allergy Unknown Sneezing Uncoded 04/25/25 14:07 DUST MITES Allergy Unknown Sneezing Uncoded 04/25/25 14:07 <Sunni Gudino MD - Last Filed: 04/25/25 22:14> FORMERLY [facility], [facility] Past Medical History Medical History: Medical History Arthritis of left knee History of stress test Hypertension History of torn meniscus of left knee Tenosynovitis of wrist flexor Right rotator cuff tear Tear of medial meniscus of left knee Hypothyroid Arthritis GERD (gastroesophageal reflux disease) Diverticulosis Diverticulitis <Sunni Gudino MD - Last Filed: 04/25/25 22:14> Surgical History Surgical History: Surgical History Hx of removal of cyst (~2020) from the throat Hx of cataract surgery (~2018) Status post brachioplasty (~2007) H/O rhytidectomy (~2002) H/O carpal tunnel repair (~1993) History of hysterectomy (~1991) S/P right rotator cuff repair Status post breast reduction (~2012) <Sunni Gudino MD - Last Filed: 04/25/25 22:14> Family History Family History: Family History Father Family history of cardiovascular disease, Onset Age: 80 Mother Diabetes mellitus <Sunni Gudino MD - Last Filed: 04/25/25 22:14> Social History Social History: Social History Smoking status: Never smoker Alcohol intake: current Drinks per week: 1 Substance use: never Lack of Transportation: No Lack of Food: Never True Current Housing: I Have Housing Concerned About Future Housing: No Difficulty Paying Gas/Electric Bills: No Difficulty Paying for Meds: No Currently Unemployed: No Education: Bachelor's Degree Difficulty w/ Childcare or Family Care: No Living arrangements: with family Gender identity (if verbalized by the patient): Female Spiritual care concerns: No <Sunni Gudino MD - Last Filed: 04/25/25 22:14> Exam 2 Const: General: no acute distress and alert <Sunni Gudino MD - Last Filed: 04/25/25 22:14> Nutritional Appearance: well nourished and obese <Sunni Gudino MD - Last Filed: 04/25/25 22:14> Orientation/consciousness: patient oriented x3 <Sunni Gudino MD - Last Filed: 04/25/25 22:14> Limitations: no limitations <Sunni Gudino MD - Last Filed: 04/25/25 22:14> HENMT: Head: normal to inspection <Sunni Gudino MD - Last Filed: 04/25/25 22:14> Eyes: EOM: EOMs intact bilaterally <Sunni Gudino MD - Last Filed: 04/25/25 22:14> Resp: Effort & Inspection: normal respiratory effort <Sunni Gudino MD - Last Filed: 04/25/25 22:14> Auscultation: clear to auscultation bilaterally <Sunni Gudino MD - Last Filed: 04/25/25 22:14> Cardio: Rate: regular rate <Sunni Gudino MD - Last Filed: 04/25/25 22:14> Rhythm: regular rhythm <Sunni Gudino MD - Last Filed: 04/25/25 22:14> Heart sounds: no murmurs <Sunni Gudino MD - Last Filed: 04/25/25 22:14> GI: GI Palp: Yes Soft to palpation, No Tenderness to palpation present (GI), No Guarding due to palpation present (GI) and No Rigid due to palpation < Sunni Gudino MD - Last Filed: 04/25/25 22:14> Auscultation: normal bowel sounds <Sunni Gudino MD - Last Filed: 04/25/25 22:14> Neuro: General: patient oriented x3, moves all extremities, no meningeal signs, no focal motor deficits and CN's II-XI intact bilaterally <Sunni Gudino MD - Last Filed: 04/25/25 22:14> Cranial nerves: Yes Nystagmus not present <Sunni Gudino MD - Last Filed: 04/25/25 22:14> Speech: normal speech <Sunni Gudino MD - Last Filed: 04/25/25 22:14> Gait exam (Neuro): Normal gait present <Sunni Gudino MD - Last Filed: 04/25/25 22:14> Course Reevaluation(s) Reevaluation #1: I initially spoke with patient about CT findings and she was okay with transfer to [facility]. I spoke with U but then request for her transferred to [facility]. <Sunni Gudino MD - Last Filed: 04/25/25 22:14> Date: 04/25/25 <Sunni Gudino MD - Last Filed: 04/25/25 22:14> Time: 17:23 <Sunni Gudino MD - Last Filed: 04/25/25 22:14> Reevaluation #2: PAtient is awaiting transfer for abnormal CT brain with possible ICH. Care turned over to Dr. Gamboa. On wait list at [facility]. <Sunni Gudino MD - Last Filed: 04/25/25 22:14> PAtient is awaiting transfer for abnormal CT brain with possible ICH. Care turned over to Dr. Gamboa. On wait list at [facility]. <Sarah Gamboa MD - Last Filed: 04/25/25 23:56> Date: 04/25/25 <Sunni Gudino MD - Last Filed: 04/25/25 22:14> Time: 20:00 <Sunni Gudino MD - Last Filed: 04/25/25 22:14> Reevaluation #3: CTA obtained per [facility] request; unremarkable. D/w neurologist at [facility], Dr. Payton, who reviewed imaging; this CTA was essentially 6h after the initial and per neurologist, no change in that area therefore very unlikely bleeding or any significant bleeding, also no aneurysm or malformation; he recommends that if we have a neurologist here, patient does not require transfer to [facility]. I did discuss this with the patient and her , they are very happy to stay at this hospital. Patient tells me that she feels fine, she has no symptoms whatsoever right now, her blood pressure here completely normal, multiple hours after receiving IV hydralazine. D/w neurologist Dr Mckinnon here who agrees to consult, recommends avoiding anticoag, and d/w hospitalist for admission. <Sarah Gamboa MD - Last Filed: 04/25/25 23:56> Consultations Consultation #1: I spoke with Dr. Hameed with [facility] stroke attending who accepts as direct admit. Request blood pressure to be below systolic 160 <Sunni Gudino MD - Last Filed: 04/25/25 22:14> Date: 04/25/25 <Sunni Gudino MD - Last Filed: 04/25/25 22:14> Time: 17:02 <Sunni Gudino MD - Last Filed: 04/25/25 22:14> Consultation #2: Dr. Tsang- neuro at [facility] recommends getting CTA head and neck. If no vascular abnormalities control blood pressure and possible transfer to [facility]. <Sunni Gudino MD - Last Filed: 04/25/25 22:14> Vital Signs Vital signs: Vital Signs Temperature 97.2 F L 04/25/25 14:44 Pulse Rate 80 04/25/25 14:44 Respiratory Rate 18 04/25/25 14:44 Blood Pressure 204/88 H 04/25/25 14:44 Pulse Oximetry 100 04/25/25 14:44 Oxygen Delivery Room Air 04/25/25 14:44 Temperature 97.2 F L 04/25/25 14:44 Pulse Rate 83 04/25/25 20:56 Respiratory Rate 19 04/25/25 20:56 Blood Pressure 124/57 L 04/25/25 20:56 Pulse Oximetry 98 04/25/25 20:56 Oxygen Delivery Room Air 04/25/25 14:44 <Sunni Gudino MD - Last Filed: 04/25/25 22:14> Vital Signs Temperature 97.2 F L 04/25/25 14:44 Pulse Rate 80 04/25/25 14:44 Respiratory Rate 18 04/25/25 14:44 Blood Pressure 204/88 H 04/25/25 14:44 Pulse Oximetry 100 04/25/25 14:44 Oxygen Delivery Room Air 04/25/25 14:44 Temperature 97.2 F L 04/25/25 14:44 Pulse Rate 83 04/25/25 20:56 Respiratory Rate 19 04/25/25 20:56 Blood Pressure 124/57 L 04/25/25 20:56 Pulse Oximetry 98 04/25/25 20:56 Oxygen Delivery Room Air 04/25/25 14:44 <Sarah Gamboa MD - Last Filed: 04/25/25 23:56> MDM - Dizziness Differential Diagnosis Differential diagnosis: Likely orthostatic hypotension, vertebral basilar insufficiency, cerebrovascular accident and other (hypertensive urgency, crisis, SAH, ICH) < Sunni Gudino MD - Last Filed: 04/25/25 22:14> Medical Records Attestation: I reviewed the patient's medical records. <Sunni Gudino MD - Last Filed: 04/25/25 22:14> Lab Data Attestation: I reviewed the patient's lab results. <Sunni Gudino MD - Last Filed: 04/25/25 22:14> Result diagrams: 04/25/25 16:01 04/25/25 16:01 <Sunni Gudino MD - Last Filed: 04/25/25 22:14> Labs: Lab Results 04/25/25 04/25/25 04/25/25 Range/Units 15:50 16:01 16:01 WBC 5.2 (4.5-10.0) K/mm3 RBC 4.20 (4.2-5.4) M/mm3 Hgb 12.2 (12.0-15.0) g/dL Hct 37.5 (37.0-47.0) % MCV 89.3 (80-100) fl MCH 29.0 (26-34) pg MCHC 32.5 (32-36) g/dl RDW 14.0 (11.5-14.5) % Plt Count 231 (150-375) k/mm3 MPV 8.9 (7.4-10.4) fl Immature Gran % (Auto) 0.4 (0-0.5) % Neut % (Auto) 72.9 (45.5-73.1) % Lymph % (Auto) 19.6 (18.3-44.2) % Trigg % (Auto) 6.7 (2.6-8.5) % Eos % (Auto) 0.0 (0-4.4) % Baso % (Auto) 0.4 (0.2-1.2) % Lymph # (Auto) 1.02 (0.9-3.2) K/mm3 Trigg # (Auto) 0.4 (0.1-0.6) K/mm3 Eos # (Auto) 0.0 (0-0.3) K/mm3 Baso # (Auto) 0.0 (0.0-0.1) K/mm3 Abs Immat Gran (auto) 0.02 (0.00-0.031) K/mm3 Absolute Neuts (auto) 3.8 (1.3-6.7) K/mm3 Absolute Nucleated RBC 0.000 (0.0-0.012) K/mm3 Nucleated RBC % 0.0 (0.0-0.2) % PT 14.0 (11.1-14.7) Seconds INR 1.1 APTT 25.4 (22.3-36.8) Seconds Sodium Cancelled 135 L Potassium Cancelled Chloride Carbon Dioxide Anion Gap BUN Creatinine Estim Creat Clear Calc Estimated GFR Glucose Calcium Total Bilirubin AST ALT Alkaline Phosphatase Troponin I (0.000-0.034) ng/mL Total Protein Albumin Urine Color Yellow (Yellow) Urine Appearance Cloudy H (Clear) Urine pH 7.5 (5.0-9.0) Ur Specific Ramer 1.005 (1.001-1.035) Urine Protein Negative (Negative) mg/dL Urine Glucose (UA) Negative (Negative) mg/dL Urine Ketones Negative (Negative) mg/dL Ur Blood (Man) Negative (Negative) Urine Nitrate Negative (Negative) Urine Bilirubin Negative (Negative) Urine Urobilinogen 0.2 (<2.0) mg/dL Leukocyte Esterase Rfl Negative (Negative) FARIDEH/UL Urine RBC 0-2 (0-2) /hpf Urine WBC 0-5 (0-3) /hpf Ur Squamous Epith Cells None seen (Few) /hpf Urine Bacteria None seen /hpf Urine Casts 0-2 04/25/25 04/25/25 04/25/25 Range/Units 16:01 16:01 16:01 WBC (4.5-10.0) K/mm3 RBC (4.2-5.4) M/mm3 Hgb (12.0-15.0) g/dL Hct (37.0-47.0) % MCV (80-100) fl MCH (26-34) pg MCHC (32-36) g/dl RDW (11.5-14.5) % Plt Count (150-375) k/mm3 MPV (7.4-10.4) fl Immature Gran % (Auto) (0-0.5) % Neut % (Auto) (45.5-73.1) % Lymph % (Auto) (18.3-44.2) % Trigg % (Auto) (2.6-8.5) % Eos % (Auto) (0-4.4) % Baso % (Auto) (0.2-1.2) % Lymph # (Auto) (0.9-3.2) K/mm3 Trigg # (Auto) (0.1-0.6) K/mm3 Eos # (Auto) (0-0.3) K/mm3 Baso # (Auto) (0.0-0.1) K/mm3 Abs Immat Gran (auto) (0.00-0.031) K/mm3 Absolute Neuts (auto) (1.3-6.7) K/mm3 Absolute Nucleated RBC (0.0-0.012) K/mm3 Nucleated RBC % (0.0-0.2) % PT (11.1-14.7) Seconds INR APTT (22.3-36.8) Seconds Sodium Potassium 4.3 Chloride Cancelled 102 Carbon Dioxide Cancelled 26 Anion Gap Cancelled BUN Creatinine Estim Creat Clear Calc Estimated GFR Glucose Calcium Total Bilirubin AST ALT Alkaline Phosphatase Troponin I (0.000-0.034) ng/mL Total Protein Albumin Urine Color (Yellow) Urine Appearance (Clear) Urine pH (5.0-9.0) Ur Specific Ramer (1.001-1.035) Urine Protein (Negative) mg/dL Urine Glucose (UA) (Negative) mg/dL Urine Ketones (Negative) mg/dL Ur Blood (Man) (Negative) Urine Nitrate (Negative) Urine Bilirubin (Negative) Urine Urobilinogen (<2.0) mg/dL Leukocyte Esterase Rfl (Negative) FARIDEH/UL Urine RBC (0-2) /hpf Urine WBC (0-3) /hpf Ur Squamous Epith Cells (Few) /hpf Urine Bacteria /hpf Urine Casts 04/25/25 04/25/25 04/25/25 Range/Units 16:01 16:01 16:01 WBC (4.5-10.0) K/mm3 RBC (4.2-5.4) M/mm3 Hgb (12.0-15.0) g/dL Hct (37.0-47.0) % MCV (80-100) fl MCH (26-34) pg MCHC (32-36) g/dl RDW (11.5-14.5) % Plt Count (150-375) k/mm3 MPV (7.4-10.4) fl Immature Gran % (Auto) (0-0.5) % Neut % (Auto) (45.5-73.1) % Lymph % (Auto) (18.3-44.2) % Trigg % (Auto) (2.6-8.5) % Eos % (Auto) (0-4.4) % Baso % (Auto) (0.2-1.2) % Lymph # (Auto) (0.9-3.2) K/mm3 Trigg # (Auto) (0.1-0.6) K/mm3 Eos # (Auto) (0-0.3) K/mm3 Baso # (Auto) (0.0-0.1) K/mm3 Abs Immat Gran (auto) (0.00-0.031) K/mm3 Absolute Neuts (auto) (1.3-6.7) K/mm3 Absolute Nucleated RBC (0.0-0.012) K/mm3 Nucleated RBC % (0.0-0.2) % PT (11.1-14.7) Seconds INR APTT (22.3-36.8) Seconds Sodium Potassium Chloride Carbon Dioxide Anion Gap 7 BUN Cancelled 10 Creatinine Cancelled 0.63 L Estim Creat Clear Calc Cancelled Estimated GFR Glucose Calcium Total Bilirubin AST ALT Alkaline Phosphatase Troponin I (0.000-0.034) ng/mL Total Protein Albumin Urine Color (Yellow) Urine Appearance (Clear) Urine pH (5.0-9.0) Ur Specific Ramer (1.001-1.035) Urine Protein (Negative) mg/dL Urine Glucose (UA) (Negative) mg/dL Urine Ketones (Negative) mg/dL Ur Blood (Man) (Negative) Urine Nitrate (Negative) Urine Bilirubin (Negative) Urine Urobilinogen (<2.0) mg/dL Leukocyte Esterase Rfl (Negative) FARIDEH/UL Urine RBC (0-2) /hpf Urine WBC (0-3) /hpf Ur Squamous Epith Cells (Few) /hpf Urine Bacteria /hpf Urine Casts 04/25/25 04/25/25 04/25/25 Range/Units 16:01 16:01 16:01 WBC (4.5-10.0) K/mm3 RBC (4.2-5.4) M/mm3 Hgb (12.0-15.0) g/dL Hct (37.0-47.0) % MCV (80-100) fl MCH (26-34) pg MCHC (32-36) g/dl RDW (11.5-14.5) % Plt Count (150-375) k/mm3 MPV (7.4-10.4) fl Immature Gran % (Auto) (0-0.5) % Neut % (Auto) (45.5-73.1) % Lymph % (Auto) (18.3-44.2) % Trigg % (Auto) (2.6-8.5) % Eos % (Auto) (0-4.4) % Baso % (Auto) (0.2-1.2) % Lymph # (Auto) (0.9-3.2) K/mm3 Trigg # (Auto) (0.1-0.6) K/mm3 Eos # (Auto) (0-0.3) K/mm3 Baso # (Auto) (0.0-0.1) K/mm3 Abs Immat Gran (auto) (0.00-0.031) K/mm3 Absolute Neuts (auto) (1.3-6.7) K/mm3 Absolute Nucleated RBC (0.0-0.012) K/mm3 Nucleated RBC % (0.0-0.2) % PT (11.1-14.7) Seconds INR APTT (22.3-36.8) Seconds Sodium Potassium Chloride Carbon Dioxide Anion Gap BUN Creatinine Estim Creat Clear Calc 49 Estimated GFR Cancelled > 60 Glucose Cancelled 99 Calcium Cancelled Total Bilirubin AST ALT Alkaline Phosphatase Troponin I (0.000-0.034) ng/mL Total Protein Albumin Urine Color (Yellow) Urine Appearance (Clear) Urine pH (5.0-9.0) Ur Specific Ramer (1.001-1.035) Urine Protein (Negative) mg/dL Urine Glucose (UA) (Negative) mg/dL Urine Ketones (Negative) mg/dL Ur Blood (Man) (Negative) Urine Nitrate (Negative) Urine Bilirubin (Negative) Urine Urobilinogen (<2.0) mg/dL Leukocyte Esterase Rfl (Negative) FARIDEH/UL Urine RBC (0-2) /hpf Urine WBC (0-3) /hpf Ur Squamous Epith Cells (Few) /hpf Urine Bacteria /hpf Urine Casts 04/25/25 04/25/25 04/25/25 Range/Units 16:01 16:01 16:01 WBC (4.5-10.0) K/mm3 RBC (4.2-5.4) M/mm3 Hgb (12.0-15.0) g/dL Hct (37.0-47.0) % MCV (80-100) fl MCH (26-34) pg MCHC (32-36) g/dl RDW (11.5-14.5) % Plt Count (150-375) k/mm3 MPV (7.4-10.4) fl Immature Gran % (Auto) (0-0.5) % Neut % (Auto) (45.5-73.1) % Lymph % (Auto) (18.3-44.2) % Trigg % (Auto) (2.6-8.5) % Eos % (Auto) (0-4.4) % Baso % (Auto) (0.2-1.2) % Lymph # (Auto) (0.9-3.2) K/mm3 Trigg # (Auto) (0.1-0.6) K/mm3 Eos # (Auto) (0-0.3) K/mm3 Baso # (Auto) (0.0-0.1) K/mm3 Abs Immat Gran (auto) (0.00-0.031) K/mm3 Absolute Neuts (auto) (1.3-6.7) K/mm3 Absolute Nucleated RBC (0.0-0.012) K/mm3 Nucleated RBC % (0.0-0.2) % PT (11.1-14.7) Seconds INR APTT (22.3-36.8) Seconds Sodium Potassium Chloride Carbon Dioxide Anion Gap BUN Creatinine Estim Creat Clear Calc Estimated GFR Glucose Calcium 9.9 Total Bilirubin Cancelled 0.3 AST Cancelled 35 ALT Cancelled Alkaline Phosphatase Troponin I (0.000-0.034) ng/mL Total Protein Albumin Urine Color (Yellow) Urine Appearance (Clear) Urine pH (5.0-9.0) Ur Specific Ramer (1.001-1.035) Urine Protein (Negative) mg/dL Urine Glucose (UA) (Negative) mg/dL Urine Ketones (Negative) mg/dL Ur Blood (Man) (Negative) Urine Nitrate (Negative) Urine Bilirubin (Negative) Urine Urobilinogen (<2.0) mg/dL Leukocyte Esterase Rfl (Negative) FARIDEH/UL Urine RBC (0-2) /hpf Urine WBC (0-3) /hpf Ur Squamous Epith Cells (Few) /hpf Urine Bacteria /hpf Urine Casts 04/25/25 04/25/25 04/25/25 Range/Units 16:01 16:01 16:01 WBC (4.5-10.0) K/mm3 RBC (4.2-5.4) M/mm3 Hgb (12.0-15.0) g/dL Hct (37.0-47.0) % MCV (80-100) fl MCH (26-34) pg MCHC (32-36) g/dl RDW (11.5-14.5) % Plt Count (150-375) k/mm3 MPV (7.4-10.4) fl Immature Gran % (Auto) (0-0.5) % Neut % (Auto) (45.5-73.1) % Lymph % (Auto) (18.3-44.2) % Trigg % (Auto) (2.6-8.5) % Eos % (Auto) (0-4.4) % Baso % (Auto) (0.2-1.2) % Lymph # (Auto) (0.9-3.2) K/mm3 Trigg # (Auto) (0.1-0.6) K/mm3 Eos # (Auto) (0-0.3) K/mm3 Baso # (Auto) (0.0-0.1) K/mm3 Abs Immat Gran (auto) (0.00-0.031) K/mm3 Absolute Neuts (auto) (1.3-6.7) K/mm3 Absolute Nucleated RBC (0.0-0.012) K/mm3 Nucleated RBC % (0.0-0.2) % PT (11.1-14.7) Seconds INR APTT (22.3-36.8) Seconds Sodium Potassium Chloride Carbon Dioxide Anion Gap BUN Creatinine Estim Creat Clear Calc Estimated GFR Glucose Calcium Total Bilirubin AST ALT 19 Alkaline Phosphatase Cancelled 49 Troponin I < 0.012 (0.000-0.034) ng/mL Total Protein Cancelled 6.9 Albumin Cancelled Urine Color (Yellow) Urine Appearance (Clear) Urine pH (5.0-9.0) Ur Specific Ramer (1.001-1.035) Urine Protein (Negative) mg/dL Urine Glucose (UA) (Negative) mg/dL Urine Ketones (Negative) mg/dL Ur Blood (Man) (Negative) Urine Nitrate (Negative) Urine Bilirubin (Negative) Urine Urobilinogen (<2.0) mg/dL Leukocyte Esterase Rfl (Negative) FARIDEH/UL Urine RBC (0-2) /hpf Urine WBC (0-3) /hpf Ur Squamous Epith Cells (Few) /hpf Urine Bacteria /hpf Urine Casts //25 Range/Units 16:01 WBC (4.5-10.0) K/mm3 RBC (4.2-5.4) M/mm3 Hgb (12.0-15.0) g/dL Hct (37.0-47.0) % MCV (80-100) fl MCH (26-34) pg MCHC (32-36) g/dl RDW (11.5-14.5) % Plt Count (150-375) k/mm3 MPV (7.4-10.4) fl Immature Gran % (Auto) (0-0.5) % Neut % (Auto) (45.5-73.1) % Lymph % (Auto) (18.3-44.2) % Trigg % (Auto) (2.6-8.5) % Eos % (Auto) (0-4.4) % Baso % (Auto) (0.2-1.2) % Lymph # (Auto) (0.9-3.2) K/mm3 Trigg # (Auto) (0.1-0.6) K/mm3 Eos # (Auto) (0-0.3) K/mm3 Baso # (Auto) (0.0-0.1) K/mm3 Abs Immat Gran (auto) (0.00-0.031) K/mm3 Absolute Neuts (auto) (1.3-6.7) K/mm3 Absolute Nucleated RBC (0.0-0.012) K/mm3 Nucleated RBC % (0.0-0.2) % PT (11.1-14.7) Seconds INR APTT (22.3-36.8) Seconds Sodium Potassium Chloride Carbon Dioxide Anion Gap BUN Creatinine Estim Creat Clear Calc Estimated GFR Glucose Calcium Total Bilirubin AST ALT Alkaline Phosphatase Troponin I (0.000-0.034) ng/mL Total Protein Albumin 4.0 Urine Color (Yellow) Urine Appearance (Clear) Urine pH (5.0-9.0) Ur Specific Ramer (1.001-1.035) Urine Protein (Negative) mg/dL Urine Glucose (UA) (Negative) mg/dL Urine Ketones (Negative) mg/dL Ur Blood (Man) (Negative) Urine Nitrate (Negative) Urine Bilirubin (Negative) Urine Urobilinogen (<2.0) mg/dL Leukocyte Esterase Rfl (Negative) FARIDEH/UL Urine RBC (0-2) /hpf Urine WBC (0-3) /hpf Ur Squamous Epith Cells (Few) /hpf Urine Bacteria /hpf Urine Casts <Sunni Gudino MD - Last Filed: 04/25/25 22:14> Lab Results 04/25/25 04/25/25 04/25/25 Range/Units 15:50 16:01 16:01 WBC 5.2 (4.5-10.0) K/mm3 RBC 4.20 (4.2-5.4) M/mm3 Hgb 12.2 (12.0-15.0) g/dL Hct 37.5 (37.0-47.0) % MCV 89.3 (80-100) fl MCH 29.0 (26-34) pg MCHC 32.5 (32-36) g/dl RDW 14.0 (11.5-14.5) % Plt Count 231 (150-375) k/mm3 MPV 8.9 (7.4-10.4) fl Immature Gran % (Auto) 0.4 (0-0.5) % Neut % (Auto) 72.9 (45.5-73.1) % Lymph % (Auto) 19.6 (18.3-44.2) % Trigg % (Auto) 6.7 (2.6-8.5) % Eos % (Auto) 0.0 (0-4.4) % Baso % (Auto) 0.4 (0.2-1.2) % Lymph # (Auto) 1.02 (0.9-3.2) K/mm3 Trigg # (Auto) 0.4 (0.1-0.6) K/mm3 Eos # (Auto) 0.0 (0-0.3) K/mm3 Baso # (Auto) 0.0 (0.0-0.1) K/mm3 Abs Immat Gran (auto) 0.02 (0.00-0.031) K/mm3 Absolute Neuts (auto) 3.8 (1.3-6.7) K/mm3 Absolute Nucleated RBC 0.000 (0.0-0.012) K/mm3 Nucleated RBC % 0.0 (0.0-0.2) % PT 14.0 (11.1-14.7) Seconds INR 1.1 APTT 25.4 (22.3-36.8) Seconds Sodium Cancelled 135 L Potassium Cancelled Chloride Carbon Dioxide Anion Gap BUN Creatinine Estim Creat Clear Calc Estimated GFR Glucose Calcium Total Bilirubin AST ALT Alkaline Phosphatase Troponin I (0.000-0.034) ng/mL Total Protein Albumin Urine Color Yellow (Yellow) Urine Appearance Cloudy H (Clear) Urine pH 7.5 (5.0-9.0) Ur Specific Ramer 1.005 (1.001-1.035) Urine Protein Negative (Negative) mg/dL Urine Glucose (UA) Negative (Negative) mg/dL Urine Ketones Negative (Negative) mg/dL Ur Blood (Man) Negative (Negative) Urine Nitrate Negative (Negative) Urine Bilirubin Negative (Negative) Urine Urobilinogen 0.2 (<2.0) mg/dL Leukocyte Esterase Rfl Negative (Negative) FARIDEH/UL Urine RBC 0-2 (0-2) /hpf Urine WBC 0-5 (0-3) /hpf Ur Squamous Epith Cells None seen (Few) /hpf Urine Bacteria None seen /hpf Urine Casts 0-2 04/25/25 04/25/25 04/25/25 Range/Units 16:01 16:01 16:01 WBC (4.5-10.0) K/mm3 RBC (4.2-5.4) M/mm3 Hgb (12.0-15.0) g/dL Hct (37.0-47.0) % MCV (80-100) fl MCH (26-34) pg MCHC (32-36) g/dl RDW (11.5-14.5) % Plt Count (150-375) k/mm3 MPV (7.4-10.4) fl Immature Gran % (Auto) (0-0.5) % Neut % (Auto) (45.5-73.1) % Lymph % (Auto) (18.3-44.2) % Trigg % (Auto) (2.6-8.5) % Eos % (Auto) (0-4.4) % Baso % (Auto) (0.2-1.2) % Lymph # (Auto) (0.9-3.2) K/mm3 Trigg # (Auto) (0.1-0.6) K/mm3 Eos # (Auto) (0-0.3) K/mm3 Baso # (Auto) (0.0-0.1) K/mm3 Abs Immat Gran (auto) (0.00-0.031) K/mm3 Absolute Neuts (auto) (1.3-6.7) K/mm3 Absolute Nucleated RBC (0.0-0.012) K/mm3 Nucleated RBC % (0.0-0.2) % PT (11.1-14.7) Seconds INR APTT (22.3-36.8) Seconds Sodium Potassium 4.3 Chloride Cancelled 102 Carbon Dioxide Cancelled 26 Anion Gap Cancelled BUN Creatinine Estim Creat Clear Calc Estimated GFR Glucose Calcium Total Bilirubin AST ALT Alkaline Phosphatase Troponin I (0.000-0.034) ng/mL Total Protein Albumin Urine Color (Yellow) Urine Appearance (Clear) Urine pH (5.0-9.0) Ur Specific Ramer (1.001-1.035) Urine Protein (Negative) mg/dL Urine Glucose (UA) (Negative) mg/dL Urine Ketones (Negative) mg/dL Ur Blood (Man) (Negative) Urine Nitrate (Negative) Urine Bilirubin (Negative) Urine Urobilinogen (<2.0) mg/dL Leukocyte Esterase Rfl (Negative) FARIDEH/UL Urine RBC (0-2) /hpf Urine WBC (0-3) /hpf Ur Squamous Epith Cells (Few) /hpf Urine Bacteria /hpf Urine Casts 04/25/25 04/25/25 04/25/25 Range/Units 16:01 16:01 16:01 WBC (4.5-10.0) K/mm3 RBC (4.2-5.4) M/mm3 Hgb (12.0-15.0) g/dL Hct (37.0-47.0) % MCV (80-100) fl MCH (26-34) pg MCHC (32-36) g/dl RDW (11.5-14.5) % Plt Count (150-375) k/mm3 MPV (7.4-10.4) fl Immature Gran % (Auto) (0-0.5) % Neut % (Auto) (45.5-73.1) % Lymph % (Auto) (18.3-44.2) % Trigg % (Auto) (2.6-8.5) % Eos % (Auto) (0-4.4) % Baso % (Auto) (0.2-1.2) % Lymph # (Auto) (0.9-3.2) K/mm3 Trigg # (Auto) (0.1-0.6) K/mm3 Eos # (Auto) (0-0.3) K/mm3 Baso # (Auto) (0.0-0.1) K/mm3 Abs Immat Gran (auto) (0.00-0.031) K/mm3 Absolute Neuts (auto) (1.3-6.7) K/mm3 Absolute Nucleated RBC (0.0-0.012) K/mm3 Nucleated RBC % (0.0-0.2) % PT (11.1-14.7) Seconds INR APTT (22.3-36.8) Seconds Sodium Potassium Chloride Carbon Dioxide Anion Gap 7 BUN Cancelled 10 Creatinine Cancelled 0.63 L Estim Creat Clear Calc Cancelled Estimated GFR Glucose Calcium Total Bilirubin AST ALT Alkaline Phosphatase Troponin I (0.000-0.034) ng/mL Total Protein Albumin Urine Color (Yellow) Urine Appearance (Clear) Urine pH (5.0-9.0) Ur Specific Ramer (1.001-1.035) Urine Protein (Negative) mg/dL Urine Glucose (UA) (Negative) mg/dL Urine Ketones (Negative) mg/dL Ur Blood (Man) (Negative) Urine Nitrate (Negative) Urine Bilirubin (Negative) Urine Urobilinogen (<2.0) mg/dL Leukocyte Esterase Rfl (Negative) FARIDEH/UL Urine RBC (0-2) /hpf Urine WBC (0-3) /hpf Ur Squamous Epith Cells (Few) /hpf Urine Bacteria /hpf Urine Casts 04/25/25 04/25/25 04/25/25 Range/Units 16:01 16:01 16:01 WBC (4.5-10.0) K/mm3 RBC (4.2-5.4) M/mm3 Hgb (12.0-15.0) g/dL Hct (37.0-47.0) % MCV (80-100) fl MCH (26-34) pg MCHC (32-36) g/dl RDW (11.5-14.5) % Plt Count (150-375) k/mm3 MPV (7.4-10.4) fl Immature Gran % (Auto) (0-0.5) % Neut % (Auto) (45.5-73.1) % Lymph % (Auto) (18.3-44.2) % Trigg % (Auto) (2.6-8.5) % Eos % (Auto) (0-4.4) % Baso % (Auto) (0.2-1.2) % Lymph # (Auto) (0.9-3.2) K/mm3 Trigg # (Auto) (0.1-0.6) K/mm3 Eos # (Auto) (0-0.3) K/mm3 Baso # (Auto) (0.0-0.1) K/mm3 Abs Immat Gran (auto) (0.00-0.031) K/mm3 Absolute Neuts (auto) (1.3-6.7) K/mm3 Absolute Nucleated RBC (0.0-0.012) K/mm3 Nucleated RBC % (0.0-0.2) % PT (11.1-14.7) Seconds INR APTT (22.3-36.8) Seconds Sodium Potassium Chloride Carbon Dioxide Anion Gap BUN Creatinine Estim Creat Clear Calc 49 Estimated GFR Cancelled > 60 Glucose Cancelled 99 Calcium Cancelled Total Bilirubin AST ALT Alkaline Phosphatase Troponin I (0.000-0.034) ng/mL Total Protein Albumin Urine Color (Yellow) Urine Appearance (Clear) Urine pH (5.0-9.0) Ur Specific Ramer (1.001-1.035) Urine Protein (Negative) mg/dL Urine Glucose (UA) (Negative) mg/dL Urine Ketones (Negative) mg/dL Ur Blood (Man) (Negative) Urine Nitrate (Negative) Urine Bilirubin (Negative) Urine Urobilinogen (<2.0) mg/dL Leukocyte Esterase Rfl (Negative) FARIDEH/UL Urine RBC (0-2) /hpf Urine WBC (0-3) /hpf Ur Squamous Epith Cells (Few) /hpf Urine Bacteria /hpf Urine Casts 04/25/25 04/25/25 04/25/25 Range/Units 16:01 16:01 16:01 WBC (4.5-10.0) K/mm3 RBC (4.2-5.4) M/mm3 Hgb (12.0-15.0) g/dL Hct (37.0-47.0) % MCV (80-100) fl MCH (26-34) pg MCHC (32-36) g/dl RDW (11.5-14.5) % Plt Count (150-375) k/mm3 MPV (7.4-10.4) fl Immature Gran % (Auto) (0-0.5) % Neut % (Auto) (45.5-73.1) % Lymph % (Auto) (18.3-44.2) % Trigg % (Auto) (2.6-8.5) % Eos % (Auto) (0-4.4) % Baso % (Auto) (0.2-1.2) % Lymph # (Auto) (0.9-3.2) K/mm3 Trigg # (Auto) (0.1-0.6) K/mm3 Eos # (Auto) (0-0.3) K/mm3 Baso # (Auto) (0.0-0.1) K/mm3 Abs Immat Gran (auto) (0.00-0.031) K/mm3 Absolute Neuts (auto) (1.3-6.7) K/mm3 Absolute Nucleated RBC (0.0-0.012) K/mm3 Nucleated RBC % (0.0-0.2) % PT (11.1-14.7) Seconds INR APTT (22.3-36.8) Seconds Sodium Potassium Chloride Carbon Dioxide Anion Gap BUN Creatinine Estim Creat Clear Calc Estimated GFR Glucose Calcium 9.9 Total Bilirubin Cancelled 0.3 AST Cancelled 35 ALT Cancelled Alkaline Phosphatase Troponin I (0.000-0.034) ng/mL Total Protein Albumin Urine Color (Yellow) Urine Appearance (Clear) Urine pH (5.0-9.0) Ur Specific Ramer (1.001-1.035) Urine Protein (Negative) mg/dL Urine Glucose (UA) (Negative) mg/dL Urine Ketones (Negative) mg/dL Ur Blood (Man) (Negative) Urine Nitrate (Negative) Urine Bilirubin (Negative) Urine Urobilinogen (<2.0) mg/dL Leukocyte Esterase Rfl (Negative) FARIDEH/UL Urine RBC (0-2) /hpf Urine WBC (0-3) /hpf Ur Squamous Epith Cells (Few) /hpf Urine Bacteria /hpf Urine Casts 04/25/25 04/25/25 04/25/25 Range/Units 16:01 16:01 16:01 WBC (4.5-10.0) K/mm3 RBC (4.2-5.4) M/mm3 Hgb (12.0-15.0) g/dL Hct (37.0-47.0) % MCV (80-100) fl MCH (26-34) pg MCHC (32-36) g/dl RDW (11.5-14.5) % Plt Count (150-375) k/mm3 MPV (7.4-10.4) fl Immature Gran % (Auto) (0-0.5) % Neut % (Auto) (45.5-73.1) % Lymph % (Auto) (18.3-44.2) % Trigg % (Auto) (2.6-8.5) % Eos % (Auto) (0-4.4) % Baso % (Auto) (0.2-1.2) % Lymph # (Auto) (0.9-3.2) K/mm3 Trigg # (Auto) (0.1-0.6) K/mm3 Eos # (Auto) (0-0.3) K/mm3 Baso # (Auto) (0.0-0.1) K/mm3 Abs Immat Gran (auto) (0.00-0.031) K/mm3 Absolute Neuts (auto) (1.3-6.7) K/mm3 Absolute Nucleated RBC (0.0-0.012) K/mm3 Nucleated RBC % (0.0-0.2) % PT (11.1-14.7) Seconds INR APTT (22.3-36.8) Seconds Sodium Potassium Chloride Carbon Dioxide Anion Gap BUN Creatinine Estim Creat Clear Calc Estimated GFR Glucose Calcium Total Bilirubin AST ALT 19 Alkaline Phosphatase Cancelled 49 Troponin I < 0.012 (0.000-0.034) ng/mL Total Protein Cancelled 6.9 Albumin Cancelled Urine Color (Yellow) Urine Appearance (Clear) Urine pH (5.0-9.0) Ur Specific Ramer (1.001-1.035) Urine Protein (Negative) mg/dL Urine Glucose (UA) (Negative) mg/dL Urine Ketones (Negative) mg/dL Ur Blood (Man) (Negative) Urine Nitrate (Negative) Urine Bilirubin (Negative) Urine Urobilinogen (<2.0) mg/dL Leukocyte Esterase Rfl (Negative) FARIDEH/UL Urine RBC (0-2) /hpf Urine WBC (0-3) /hpf Ur Squamous Epith Cells (Few) /hpf Urine Bacteria /hpf Urine Casts 04/25/25 Range/Units 16:01 WBC (4.5-10.0) K/mm3 RBC (4.2-5.4) M/mm3 Hgb (12.0-15.0) g/dL Hct (37.0-47.0) % MCV (80-100) fl MCH (26-34) pg MCHC (32-36) g/dl RDW (11.5-14.5) % Plt Count (150-375) k/mm3 MPV (7.4-10.4) fl Immature Gran % (Auto) (0-0.5) % Neut % (Auto) (45.5-73.1) % Lymph % (Auto) (18.3-44.2) % Trigg % (Auto) (2.6-8.5) % Eos % (Auto) (0-4.4) % Baso % (Auto) (0.2-1.2) % Lymph # (Auto) (0.9-3.2) K/mm3 Trigg # (Auto) (0.1-0.6) K/mm3 Eos # (Auto) (0-0.3) K/mm3 Baso # (Auto) (0.0-0.1) K/mm3 Abs Immat Gran (auto) (0.00-0.031) K/mm3 Absolute Neuts (auto) (1.3-6.7) K/mm3 Absolute Nucleated RBC (0.0-0.012) K/mm3 Nucleated RBC % (0.0-0.2) % PT (11.1-14.7) Seconds INR APTT (22.3-36.8) Seconds Sodium Potassium Chloride Carbon Dioxide Anion Gap BUN Creatinine Estim Creat Clear Calc Estimated GFR Glucose Calcium Total Bilirubin AST ALT Alkaline Phosphatase Troponin I (0.000-0.034) ng/mL Total Protein Albumin 4.0 Urine Color (Yellow) Urine Appearance (Clear) Urine pH (5.0-9.0) Ur Specific Ramer (1.001-1.035) Urine Protein (Negative) mg/dL Urine Glucose (UA) (Negative) mg/dL Urine Ketones (Negative) mg/dL Ur Blood (Man) (Negative) Urine Nitrate (Negative) Urine Bilirubin (Negative) Urine Urobilinogen (<2.0) mg/dL Leukocyte Esterase Rfl (Negative) FARIDEH/UL Urine RBC (0-2) /hpf Urine WBC (0-3) /hpf Ur Squamous Epith Cells (Few) /hpf Urine Bacteria /hpf Urine Casts <Sarah Gamboa MD - Last Filed: 04/25/25 23:56> Imaging Data Radiologist's impression: ITS Impressions Head CT 04/25/25 16:19 IMPRESSION: 5 mm hyperdense focus in the right basal ganglia, may represent amorphous calcification, a tiny hemorrhagic lacunar infarct, or tiny focus of hypertensive hemorrhage. MRI of the brain could be helpful for further characterization. Results reported telephonically to Dr. Gudino by Dr. Morgan at 4:25 PM on 04/25/2025. <Sunni Gudino MD - Last Filed: 04/25/25 22:14> Critical Care Time Critical Care Time Critical Care Time: Yes <Sunni Gudino MD - Last Filed: 04/25/25 22:14> Total Critical Care Time: 35 <Sunni Gudino MD - Last Filed: 04/25/25 22:14> Discharge Plan Discharge Clinical Impression: Intracranial hemorrhage <Sunni Gudino MD - Last Filed: 04/25/25 22:14> Patient Disposition: Acute Care Hospital <Sunni Gudino MD - Last Filed: 04/25/25 22:14> Condition: Guarded Prognosis <Sunni Gudino MD - Last Filed: 04/25/25 22:14> Additional Instructions: Please return to the ER with any worsening symptoms. Follow-up with primary care provider as soon as possible. Take all medications as prescribed, including regularly scheduled medications. <Sunni Gudino MD - Last Filed: 04/25/25 22:14> Patient Language: Yakut <Sunni Gudino MD - Last Filed: 04/25/25 22:14> Prescriptions: No Action azelastine 137 mcg (0.1 %) spray,non-aerosol INTRANASAL albuterol sulfate 90 mcg/actuation HFA aerosol inhaler INHALATION levothyroxine 50 mcg tablet 50 mcg PO DAILY polymyxin B sulf-trimethoprim [Polytrim] 10,000 unit- 1 mg/mL drops 1 drp LEFT EYE Q4H 7 Days Qty: 10 0RF Rx Instructions: while awake; do not exceed 6 doses in 24 hours doxycycline hyclate 100 mg capsule 100 mg PO BID 7 Days Qty: 14 0RF benzonatate 200 mg capsule 200 mg PO TID PRN (Reason: cough) Qty: 20 0RF calcium carbonate [Calcium 600] 600 mg calcium (1,500 mg) tablet 600 mg PO BID Centrum Silver 0.4 mg-300 mcg- 250 mcg tablet 1 tablet PO DAILY alendronate 70 mg tablet 70 mg PO WEEKLY cetirizine [Zyrtec] 10 mg tablet 10 mg PO DAILY PRN (Reason: allergies) multivitamin Tablet 1 tablet PO DAILY losartan 25 mg tablet 25 mg PO DAILY <Sunni Gudino MD - Last Filed: 04/25/25 22:14> Follow-up/Referrals: Loraine,DENTON Arizmendi [Primary Care Provider] - <Sunni Gudino MD - Last Filed: 04/25/25 22:14> Quality Stroke Date of last known normal: 04/25/25 <Sunni Gudino MD - Last Filed: 04/25/25 22:14> Time of last known normal: 15:30 <Sunni Gudino MD - Last Filed: 04/25/25 22:14> Stroke Scale Stroke Scale 1: Stroke scale date:: 04/25/25 <Sunni Gudino MD - Last Filed: 04/25/25 22:14> Stroke scale time:: 15:30 <Sunni Gudino MD - Last Filed: 04/25/25 22:14> 1a Level of consciousness: alert-0 <Sunni Gudino MD - Last Filed: 04/25/25 22:14> 1b Level of consciousness questions: answers both correctly-0 <Sunni Gudino MD - Last Filed: 04/25/25 22:14> 1c Level of consciousness commands: obeys both correctly-0 <Sunni Gudino MD - Last Filed: 04/25/25 22:14> 2 Best gaze: normal-0 <Sunni Gudino MD - Last Filed: 04/25/25 22:14> 3 Visual: no visual loss-0 <Sunni Gudino MD - Last Filed: 04/25/25 22:14> 4 Facial palsy: normal-0 <Sunni Gudino MD - Last Filed: 04/25/25 22:14> 5a Motor: left arm: no drift-0 <Sunni Gudino MD - Last Filed: 04/25/25 22:14> 5b Motor: right arm: no drift-0 <Sunni Gudino MD - Last Filed: 04/25/25 22:14> 6a Motor: left leg: no drift-0 <Sunni Gudino MD - Last Filed: 04/25/25 22:14> 6b Motor: right leg: no drift-0 <Sunni Gudino MD - Last Filed: 04/25/25 22:14> 7 Limb ataxia: absent-0 <Sunni Gudino MD - Last Filed: 04/25/25 22:14> 8 Sensory: normal-0 <Sunni Gudino MD - Last Filed: 04/25/25 22:14> 9 Best language: no aphasia-0 <Sunni Gudino MD - Last Filed: 04/25/25 22:14> 10 Dysarthria: normal-0 <Sunni Gudino MD - Last Filed: 04/25/25 22:14> 11 Extinction and inattention: no abnormality-0 <Sunni Gudino MD - Last Filed: 04/25/25 22:14> Level:: 0 <Sunni Gudino MD - Last Filed: 04/25/25 22:14> 0 <Sarah Gamboa MD - Last Filed: 04/25/25 23:56>
[2025-04-25 16:53] LABS: Alanine Aminotransferase 19 U/L (6-35); Albumin Level 4.0 g/dL (3.5-5.1); Alkaline Phosphatase 49 U/L (38-126); Anion Gap 7 mmol/L (4-12); Aspartate Amino Transferase 35 U/L (14-36); Bilirubin,Total 0.3 mg/dL (0.2-1.3); Blood Urea Nitrogen 10 mg/dL (7-17); Calcium 9.9 mg/dL (8.4-10.2); Carbon Dioxide 26 mmol/L (22-30); Chloride 102 mmol/L (98-107); Estimated CRCL calculation 49 ml/min; Estimated Glomerular Filt Rate > 60; Glucose 99 mg/dL (65-110); Potassium 4.3 mmol/L (3.4-5.0); Sodium 135 mmol/L (137-145); Total Protein 6.9 g/dL (6.3-8.2)
[2025-04-25 16:59] LABS: Troponin I < 0.012 ng/mL (0.000-0.034)
--- NOTE | 2025-04-25 17:23 | PC.NURSE ---
[facility] accepted patient, but at capacity. please notify of any acute changes. [phone] U
[2025-04-25 17:28] LABS: INR 1.1; Prothrombin Time 14.0 Seconds (11.1-14.7)
[2025-04-25 17:29] LABS: Partial Thromboplastin Time 25.4 Seconds (22.3-36.8)
--- NOTE | 2025-04-25 21:15 | PC.NURSE ---
Report to DAPHNE Alberto
[2025-04-25] MEDS: ACETAMINOPHEN 500 MG TABLET 1000 MG PO (23:39)
[2025-04-26] VITALS (10 sets, daily range): BP systolic 129–154; BP diastolic 53–77; PULSE 66–104; RESP 17–20; TEMP 36.3–36.8; O2SAT 97–100; BMI 25.6
--- NOTE | 2025-04-26 00:57 | ADMGEN ---
This patient, Gauri Bill, was admitted to IMU Room 231-01 at 0050. Patient/family oriented to hospital policies and general routines including ID bracelet, bed and alarms, visiting hours, pain management, procedures, bathroom and other care routines, personal items, smoking policy, room service/diet, and visiting hours. Information on how to activate the Rapid Response Team has been discussed. Patient/Family are encouraged to report perceived risks to care and to ask questions if they do not understand what they are told or what they should do.
--- NOTE | 2025-04-26 04:02 | PM.IMHP ---
H&P: HPI History of Present Illness Date/Time: 04/26/25 04:02 Chief Complaint: dizziness Narrative: 79-year-old female with history of hypertension prevents with headache and dizziness. This is been ongoing for 3-4 days. When she checked her blood pressure today was 200 systolic. Patient presented to urgent care within refer to [facility] ER. Patient denied chest pain, nausea vomiting abdominal pain, diarrhea, change in vision, fever, cough, shortness of breath, weakness or change in sensation. She reports taking an extra half dose of her losartan. Blood pressure on arrival 200/81. After a 1 time dose of hydralazine 10 mg IV, her blood pressure greatly improved. A head CT without contrast performed demonstrated a 5 mm hyperdense focus in the right basal ganglia which could represent amorphous calcification, hemorrhagic lacunar infarct or tiny focus of hypertensive hemorrhage. Subsequently a head and neck CTA was performed which did not show any occlusions stenosis or aneurysm. Calls were made from the ER to [facility] and [facility]. Imaging was reviewed with neurologist, and ultimately they declined transfer. Reporting the unchanged focus on 2 separate scan 6 hours apart indicated it was very unlikely to be bleeding. [facility] neurologist contacted from ER. Advised admission, avoiding anticoagulation. Patient seen thereafter, with no complaints, no deficits. Review of Systems Review of Systems: All systems reviewed & are unremarkable except as noted in HPI and below (Subjective/HPI) [facility] Past Medical History Medical History Arthritis of left knee History of stress test Hypertension History of torn meniscus of left knee Tenosynovitis of wrist flexor Right rotator cuff tear Tear of medial meniscus of left knee Hypothyroid Arthritis GERD (gastroesophageal reflux disease) Diverticulosis Diverticulitis Surgical History Surgical History Hx of removal of cyst (~2020) from the throat Hx of cataract surgery (~2018) Status post brachioplasty (~2007) H/O rhytidectomy (~2002) H/O carpal tunnel repair (~1993) History of hysterectomy (~1991) S/P right rotator cuff repair Status post breast reduction (~2012) Family History Family History Father Family history of cardiovascular disease, Onset Age: 80 Mother Diabetes mellitus Social History Social History Smoking status: Never smoker Alcohol intake: current Drinks per week: 2 Substance use: never Do You Feel Safe in your Home?: Yes Lack of Transportation: No Lack of Food: Never True Current Housing: I Have Housing Concerned About Future Housing: No Difficulty Paying Gas/Electric Bills: No Difficulty Paying for Meds: No Currently Unemployed: No Education: Bachelor's Degree Difficulty w/ Childcare or Family Care: No Living arrangements: with family Gender identity (if verbalized by the patient): Female Spiritual care concerns: No Meds Home Medications and Allergies Home Medications ?Medication ?Instructions ?Recorded ?Confirmed ?Type levothyroxine 50 mcg tablet 50 mcg PO DAILY 05/08/20 04/26/25 History cetirizine 10 mg tablet (Zyrtec) 10 mg PO DAILY PRN allergies 02/21/22 04/26/25 History multivitamin 1 tablet PO DAILY 02/21/22 04/26/25 History losartan 25 mg tablet 25 mg PO DAILY 03/06/22 04/26/25 History alendronate 70 mg tablet 70 mg PO WEEKLY 11/02/22 04/26/25 History calcium carbonate (Calcium 600) 600 mg PO BID 11/02/22 04/26/25 History feqxlqbo-csl-ytawc acid 0.4 1 tablet PO DAILY 11/02/22 04/26/25 History mg-lycopene 300 mcg-lutein 250 mcg tablet (Centrum Silver) albuterol sulfate 90 mcg/actuation 2 puff inhalation PRN 04/25/25 04/26/25 History aerosol inhaler azelastine 137 mcg (0.1 %) nasal 1 spray intranasal Q12H 04/25/25 04/26/25 History spray Allergies Allergy/AdvReac Type Severity Reaction Status Date / Time Cephalosporins Allergy Severe RASH Verified 04/25/25 14:07 moxifloxacin (From Avelox) Allergy Mild Unknown Verified 04/25/25 14:07 azithromycin Allergy Unknown Rash Verified 04/25/25 14:07 rifampin Allergy Unknown Hives Verified 04/25/25 14:07 metronidazole AdvReac Diarrhea Verified 04/25/25 14:07 Animal Dander Allergy Unknown Sneezing Uncoded 04/25/25 14:07 DUST MITES Allergy Unknown Sneezing Uncoded 04/25/25 14:07 Vital Signs Vital Signs - 24 hr 04/25/25 14:44 04/25/25 15:17 04/25/25 15:47 Temperature 97.2 F L Pulse Rate 80 75 80 Respiratory Rate 18 20 14 Blood Pressure 204/88 H Pulse Oximetry 100 100 99 Oxygen Delivery Room Air 04/25/25 15:48 04/25/25 16:01 04/25/25 17:22 Temperature Pulse Rate 76 76 Respiratory Rate 15 22 H Blood Pressure 155/66 H 161/71 H 168/87 H Pulse Oximetry 99 97 98 Oxygen Delivery 04/25/25 17:46 04/25/25 18:22 04/25/25 19:14 Temperature Pulse Rate 93 108 H 95 Respiratory Rate 21 H 20 18 Blood Pressure 150/58 H 132/63 Pulse Oximetry 99 99 99 Oxygen Delivery 04/25/25 19:16 04/25/25 19:21 04/25/25 19:36 Temperature Pulse Rate 94 92 97 Respiratory Rate 19 21 H 24 H Blood Pressure 133/56 L 131/74 135/60 Pulse Oximetry 98 100 98 Oxygen Delivery 04/25/25 20:11 04/25/25 20:16 04/25/25 20:26 Temperature Pulse Rate 86 87 86 Respiratory Rate 16 16 19 Blood Pressure 108/50 L 102/55 L 119/44 L Pulse Oximetry 97 98 97 Oxygen Delivery 04/25/25 20:31 04/25/25 20:56 04/26/25 00:50 Temperature Pulse Rate 84 83 Respiratory Rate 16 19 Blood Pressure 107/45 L 124/57 L Pulse Oximetry 97 98 Oxygen Delivery Room Air 04/26/25 01:02 04/26/25 02:00 04/26/25 03:32 Temperature 98.3 F 97.9 F Pulse Rate 76 66 71 Respiratory Rate 17 17 Blood Pressure 154/73 H 132/69 Pulse Oximetry 100 98 Oxygen Delivery Exam Const: General: comfortable and no acute distress Other: A&O x3 HENMT: Mouth: Yes moist mucous membranes Eyes: Pupils: Equal, round and reactive pupils present Neck: Neck: supple Resp: Effort & Inspection: normal respiratory effort Auscultation: clear to auscultation bilaterally Cardio: Rate: regular rate Rhythm: regular rhythm GI: Inspection: non-distended GI Palp: Yes Soft to palpation Neuro: Other: No focal deficits Extrem: General: no edema H&P: Results Labs Labs: Short CBC 04/25/25 Range/Units 16:01 WBC 5.2 (4.5-10.0) K/mm3 Hgb 12.2 (12.0-15.0) g/dL Hct 37.5 (37.0-47.0) % Plt Count 231 (150-375) k/mm3 BMP 04/25/25 04/25/25 04/25/25 16:01 16:01 16:01 Sodium Cancelled 135 L Potassium Cancelled 4.3 Chloride Cancelled Carbon Dioxide BUN Creatinine Glucose Calcium 04/25/25 04/25/25 04/25/25 16:01 16:01 16:01 Sodium Potassium Chloride 102 Carbon Dioxide Cancelled 26 BUN Cancelled 10 Creatinine Cancelled Glucose Calcium 04/25/25 04/25/25 04/25/25 16:01 16:01 16:01 Sodium Potassium Chloride Carbon Dioxide BUN Creatinine 0.63 L Glucose Cancelled 99 Calcium Cancelled 9.9 Cardiac Enzymes 04/25/25 Range/Units 16:01 Troponin I < 0.012 (0.000-0.034) ng/mL Liver Function 04/25/25 04/25/25 04/25/25 Range/Units 16:01 16:01 16:01 Total Bilirubin Cancelled 0.3 AST Cancelled 35 ALT Cancelled Alkaline Phosphatase Albumin 04/25/25 04/25/25 04/25/25 Range/Units 16:01 16:01 16:01 Total Bilirubin AST ALT 19 Alkaline Phosphatase Cancelled 49 Albumin Cancelled 4.0 Urine 04/25/25 Range/Units 15:50 Urine Color Yellow (Yellow) Urine Appearance Cloudy H (Clear) Urine pH 7.5 (5.0-9.0) Ur Specific Berkley 1.005 (1.001-1.035) Urine Protein Negative (Negative) mg/dL Urine Glucose (UA) Negative (Negative) mg/dL Assessment and Plan Assessment and plan (1) Hypertensive urgency: Code(s): I16.0 - Hypertensive urgency Status: Acute Plan 79-year-old female with history of hypertension prevents with headache and dizziness. This is been ongoing for 3-4 days. When she checked her blood pressure today was 200 systolic. Patient presented to urgent care within refer to [facility] ER. Patient denied chest pain, nausea vomiting abdominal pain, diarrhea, change in vision, fever, cough, shortness of breath, weakness or change in sensation. She reports taking an extra half dose of her losartan. Blood pressure on arrival 200/81. After a 1 time dose of hydralazine 10 mg IV, her blood pressure greatly improved. A head CT without contrast performed demonstrated a 5 mm hyperdense focus in the right basal ganglia which could represent amorphous calcification, hemorrhagic lacunar infarct or tiny focus of hypertensive hemorrhage. Subsequently a head and neck CTA was performed which did not show any occlusions stenosis or aneurysm. Calls were made from the ER to [facility] and [facility]. Imaging was reviewed with neurologist, and ultimately they declined transfer. Reporting the unchanged focus on 2 separate scan 6 hours apart indicated it was very unlikely to be bleeding. [facility] neurologist contacted from ER. Advised admission, avoiding anticoagulation. Patient seen thereafter, with no complaints, no deficits. ----- Symptoms now resolved status post hydralazine. Will resume her [employer] losartan. Fall precautions. Neuro checks q.4 hours. Hold aspirin for now. Start atorvastatin. MRI brain ordered. Patient wishes to be full code. Saline lock IV. SCDs. Hospitalist MIPS Advance Care Plan I have confirmed that the patient's Advanced Care Plan is present, code status is documented, or surrogate decision maker is listed in patient medical record.: Yes Medication Reconciliation I have utilized all available resources to obtain, update and review the patients current medications (includes all prescriptions, OTC, herbals, cannabis, and nutritional supplements).: Yes
[2025-04-26] MEDS: LEVOTHYROXINE SODIUM 50 MCG TABLET PO (06:39)
[2025-04-26] MEDS: ATORVASTATIN 40 MG TABLET 80 MG PO (10:02)
[2025-04-26] MEDS: MULTIVITAMINS THERAPEUTIC TAB (*BKC) 1 TABLET PO (10:03)
[2025-04-26] MEDS: LOSARTAN POTASSIUM 25 MG TABLET PO (10:03)
[2025-04-26] MEDS: CALCIUM CARBONATE (OSCAL) 500 MG TABLET PO ×2 (10:03→17:59)
[2025-04-26] MEDS: AZELASTINE HCL NASAL 0.1% 137 MCG/SPR 30 ML BTL 1 SPRAY NASAL ×2 (10:04→20:00)
--- NOTE | 2025-04-26 15:24 | PC.NURSE ---
down to mri
--- NOTE | 2025-04-26 16:26 | WPDNEURCNPN ---
Assessment and Plan Assessment and plan (1) Hypertensive urgency: Code(s): I16.0 - Hypertensive urgency Status: Acute Assessment and Plan: Patient blood pressure high and at the time of presentation however it has normalized with treatment. (2) Intracranial hemorrhage: Code(s): I62.9 - Nontraumatic intracranial hemorrhage, unspecified Status: Acute Assessment and Plan: this is suspected however it could be calcification of the basal ganglia since there is some calcification on both sides being slightly larger on the right than left side. The radiologist stated that they could not rule out small bleeding in this area. Clinically the patient is very stable and do not show any evidence for focal deficit. Plan I reviewed the results of CT scan of the brain and CT angiogram head and neck. MRI of the brain has been performed and the results are awaited. Clinically I doubt that she has any significant brain injury but I shall be glad to follow up the results and advise further. I noted the patient has not been on any anticoagulation however she is on atorvastatin 80 mg a day. She may continue the current treatment. Consult date: 04/26/25 HPI: Gauri Bill is a 79 year old female Who presented to the hospital with symptoms of headache and dizziness and was found to have high blood pressure around 207/81 which is now down to 132/53. She was on a cruise about a week ago and has had some sea sickness. She has had some dizziness on and off and was not feeling very well and she went to urgent care center where she was found to hypertension and was subsequently sent to emergency room. CT scan of brain was performed which shows some calcifications in basal ganglia however the possibility of small bleed in the right basal ganglia could not be ruled out. The ER physician discuss this with the Neurology in [facility] and subsequently also at [facility] and probably a neurosurgeon who all decided that it was not significant enough for transfer and the patient and the family agree to stay here. This time she is feeling fairly well. There is no history of smoking. She drinks alcohol only socially. She did have a CT angiogram of the head and neck which did not show any significant abnormalities. There is no evidence for large vessel occlusion. Patient denies any history of previous stroke or myocardial infarction, no history of head trauma. Review of Systems Review of Systems: All systems reviewed & are unremarkable except as noted in HPI and below PMFSH Past Medical History Medical History Arthritis of left knee History of stress test Hypertension History of torn meniscus of left knee Tenosynovitis of wrist flexor Right rotator cuff tear Tear of medial meniscus of left knee Hypothyroid Arthritis GERD (gastroesophageal reflux disease) Diverticulosis Diverticulitis Surgical History Surgical History Hx of removal of cyst (~2020) from the throat Hx of cataract surgery (~2018) Status post brachioplasty (~2007) H/O rhytidectomy (~2002) H/O carpal tunnel repair (~1993) History of hysterectomy (~1991) S/P right rotator cuff repair Status post breast reduction (~2012) Family History Family History Father Family history of cardiovascular disease, Onset Age: 80 Mother Diabetes mellitus Social History Social History Smoking status: Never smoker Alcohol intake: current Drinks per week: 2 Substance use: never Do You Feel Safe in your Home?: Yes Lack of Transportation: No Lack of Food: Never True Current Housing: I Have Housing Concerned About Future Housing: No Difficulty Paying Gas/Electric Bills: No Difficulty Paying for Meds: No Currently Unemployed: No Education: Bachelor's Degree Difficulty w/ Childcare or Family Care: No Living arrangements: with family Gender identity (if verbalized by the patient): Female Spiritual care concerns: No Meds Home Medications and Allergies Home Medications ?Medication ?Instructions ?Recorded ?Confirmed ?Type levothyroxine 50 mcg tablet 50 mcg PO DAILY 05/08/20 04/26/25 History cetirizine 10 mg tablet (Zyrtec) 10 mg PO DAILY PRN allergies 02/21/22 04/26/25 History multivitamin 1 tablet PO DAILY 02/21/22 04/26/25 History losartan 25 mg tablet 25 mg PO DAILY 03/06/22 04/26/25 History alendronate 70 mg tablet 70 mg PO WEEKLY 11/02/22 04/26/25 History calcium carbonate (Calcium 600) 600 mg PO BID 11/02/22 04/26/25 History kpxguwlt-yyi-dgzmr acid 0.4 1 tablet PO DAILY 11/02/22 04/26/25 History mg-lycopene 300 mcg-lutein 250 mcg tablet (Centrum Silver) albuterol sulfate 90 mcg/actuation 2 puff inhalation PRN 04/25/25 04/26/25 History aerosol inhaler azelastine 137 mcg (0.1 %) nasal 1 spray intranasal Q12H 04/25/25 04/26/25 History spray Allergies Allergy/AdvReac Type Severity Reaction Status Date / Time Cephalosporins Allergy Severe RASH Verified 04/25/25 14:07 moxifloxacin (From Avelox) Allergy Mild Unknown Verified 04/25/25 14:07 azithromycin Allergy Unknown Rash Verified 04/25/25 14:07 rifampin Allergy Unknown Hives Verified 04/25/25 14:07 metronidazole AdvReac Diarrhea Verified 04/25/25 14:07 Animal Dander Allergy Unknown Sneezing Uncoded 04/25/25 14:07 DUST MITES Allergy Unknown Sneezing Uncoded 04/25/25 14:07 Vital Signs Vital Signs - 24 hr 04/25/25 17:22 04/25/25 17:46 04/25/25 18:22 Temperature Pulse Rate 93 108 H Respiratory Rate 21 H 20 Blood Pressure 168/87 H 150/58 H Pulse Oximetry 98 99 99 Oxygen Delivery 04/25/25 19:14 04/25/25 19:16 04/25/25 19:21 Temperature Pulse Rate 95 94 92 Respiratory Rate 18 19 21 H Blood Pressure 132/63 133/56 L 131/74 Pulse Oximetry 99 98 100 Oxygen Delivery 04/25/25 19:36 04/25/25 20:11 04/25/25 20:16 Temperature Pulse Rate 97 86 87 Respiratory Rate 24 H 16 16 Blood Pressure 135/60 108/50 L 102/55 L Pulse Oximetry 98 97 98 Oxygen Delivery 04/25/25 20:26 04/25/25 20:31 04/25/25 20:56 Temperature Pulse Rate 86 84 83 Respiratory Rate 19 16 19 Blood Pressure 119/44 L 107/45 L 124/57 L Pulse Oximetry 97 97 98 Oxygen Delivery 04/26/25 00:50 04/26/25 01:02 04/26/25 02:00 Temperature 98.3 F Pulse Rate 76 66 Respiratory Rate 17 Blood Pressure 154/73 H Pulse Oximetry 100 Oxygen Delivery Room Air 04/26/25 03:32 04/26/25 04:00 04/26/25 04:30 Temperature 97.9 F Pulse Rate 71 74 Respiratory Rate 17 Blood Pressure 132/69 Pulse Oximetry 98 Oxygen Delivery Room Air 04/26/25 06:00 04/26/25 08:00 04/26/25 08:00 Temperature 97.7 F Pulse Rate 77 82 81 Respiratory Rate 20 Blood Pressure 132/53 L Pulse Oximetry 99 Oxygen Delivery Exam Const: General: cooperative, well developed and alert Orientation/consciousness: oriented to person, oriented to place and oriented to time HENMT: Head: atraumatic Eyes: Alignment and Position: position normal Pupils: Equal, round and reactive pupils present EOM: EOMs intact bilaterally Neck: Neck: supple Resp: Effort & Inspection: normal respiratory effort Cardio: Rhythm: regular rhythm Skin: General skin exam: normal color Neuro: General: patient oriented x3 Cranial nerves: Yes CN's II-XII intact bilaterally, Yes facial sensation intact/muscles of mastication intact, Yes Equal, round and reactive pupils present, Yes Bilaterally intact EOM present, Yes Nystagmus not present, Yes facial symmetry, Yes Midline tongue present, Yes Symmetric palate elevation present and Yes Ability to bilaterally elevate shoulders present Cognition (Neuro): normal cognition Speech: normal speech Motor exam (neuro): 5/5 motor strength present throughout, Normal motor muscle tone present throughout and Motor abnormalities not present Sensory Exam: normal sensation Coordination: pmjhfu-gf-qpxw test normal and Normal rapid alternating movements of the distal upper extremity present (Neuro) Psych: Mental Status: mental status grossly normal Affect: normal affect Results Labs 04/25/25 16:01 04/25/25 16:01 Labs: Short CBC 04/25/25 Range/Units 16:01 WBC 5.2 (4.5-10.0) K/mm3 Hgb 12.2 (12.0-15.0) g/dL Hct 37.5 (37.0-47.0) % Plt Count 231 (150-375) k/mm3 [facility] 04/25/25 16:01 Sodium 135 L Potassium 4.3 Chloride 102 Carbon Dioxide 26 BUN 10 Creatinine 0.63 L Glucose 99 Calcium 9.9 Cardiac Enzymes 04/25/25 Range/Units 16:01 Troponin I < 0.012 (0.000-0.034) ng/mL Liver Function 04/25/25 Range/Units 16:01 Total Bilirubin 0.3 (0.2-1.3) mg/dL AST 35 (14-36) U/L ALT 19 (6-35) U/L Alkaline Phosphatase 49 (38-126) U/L Albumin 4.0 (3.5-5.1) g/dL
--- NOTE | 2025-04-26 18:33 | PC.NURSE ---
This patient, Gauri Bill, was received from [facility] on 04/26/25 at 1833. Patient/family oriented to unit policies and routines
[2025-04-26] MEDS: ONDANSETRON INJ 4 MG/2 ML VIAL IV PUSH (19:50)
[2025-04-27] VITALS: PULSE 69
[2025-04-27 04:00] VITALS: PULSE 63
[2025-04-27] MEDS: LEVOTHYROXINE SODIUM 50 MCG TABLET PO (05:27)
[2025-04-27 05:31] VITALS: BP 127/50; PULSE 74; RESP 17; TEMP 36.7; O2SAT 97
[2025-04-27 08:00] VITALS: PULSE 100; O2SAT 97
[2025-04-27] MEDS: AZELASTINE HCL NASAL 0.1% 137 MCG/SPR 30 ML BTL 1 SPRAY NASAL (08:31)
[2025-04-27] MEDS: CALCIUM CARBONATE (OSCAL) 500 MG TABLET PO (08:31)
[2025-04-27] MEDS: ATORVASTATIN 40 MG TABLET 80 MG PO (08:31)
[2025-04-27] MEDS: MULTIVITAMINS THERAPEUTIC TAB (*BKC) 1 TABLET PO (08:31)
[2025-04-27] MEDS: LOSARTAN POTASSIUM 25 MG TABLET PO (08:31)
--- NOTE | 2025-04-27 11:45 | P.PNNEUR_ITS ---
Progress Note: A&P Assessment and Plan (1) Calcification of basal ganglia: Code(s): G23.8 - Other specified degenerative diseases of basal ganglia Status: Acute (2) Hypertensive urgency: Code(s): I16.0 - Hypertensive urgency Status: Acute Plan The patient doing very well. MRI of the brain was performed which I have reviewed. There is a calcification of basal ganglia she is slightly more than what it used to be on the right side. Overall there is no finding to suggest intracranial hemorrhage. Neurologic point of view I do not have any other specific recommendations. She has been started on aspirin 81 mg a day and Lipitor 40 mg a day however upon her lipid profile further adjustment the same can be made. Subjective Date/time seen: 04/27/25 11:45 Interval history: The patient is 79-year-old previously seen with regard to symptoms of headache and dizziness. Her blood pressure was also high and this is being treated. She is feeling better. The CT scan of the brain has raise possibility of calcif ication versus minor bleed in the right basal ganglia. Overall patient is feeling better today. Review of Systems Review of Systems: All systems reviewed & are unremarkable except as noted in HPI and below Exam Narrative: Fully conscious alert oriented to self time place and person. . Patient is very pleasant and cooperative. No aphasia or dysarthria. In a senior testing intact. Normal power and coordination in upper lower limbs. No involuntary movements are seen. Her blood pressure this morning was 132/53. Objective Data Vital Signs Vital Signs: Vital Signs - 24 hr 04/26/25 16:00 04/26/25 16:00 04/26/25 20:00 Temperature 97.4 F L Pulse Rate 77 84 78 Respiratory Rate 20 Blood Pressure 129/77 Pulse Oximetry 100 Oxygen Delivery Fraction of Inspired Oxygen 04/26/25 20:57 04/26/25 21:23 04/27/25 00:00 Temperature 98.1 F Pulse Rate 67 104 H 69 Respiratory Rate 17 20 Blood Pressure 151/67 H Pulse Oximetry 100 97 Oxygen Delivery Room Air Fraction of Inspired Oxygen 21 04/27/25 00:00 04/27/25 04:00 04/27/25 05:31 Temperature 98.0 F Pulse Rate 69 63 74 Respiratory Rate 17 Blood Pressure 127/50 L Pulse Oximetry 97 Oxygen Delivery Fraction of Inspired Oxygen 04/27/25 08:00 04/27/25 08:00 Temperature Pulse Rate 100 Respiratory Rate Blood Pressure Pulse Oximetry 97 Oxygen Delivery Room Air Fraction of Inspired Oxygen Intake/Output Intake/Output: Intake & Output 04/24/25 04/25/25 04/26/25 04/27/25 23:59 23:59 23:59 23:59 Intake Total 1360 440 Balance 1360 440 Meds/Results Medications: Active Medications Generic Name Dose Route Start Last Admin Trade Name Freq PRN Reason Stop Dose Admin Atorvastatin Calcium 80 mg 04/26/25 09:00 04/27/25 08:31 Atorvastatin 40 Mg Tablet PO 80 mg DAILY CARLINE Administration Azelastine HCl 1 spray 04/26/25 09:00 04/27/25 08:31 Azelastine Hcl Nasal 0.1% 137 Mcg/Spr 30 Ml Btl NASAL 1 spray Q12HR CARLINE Administration Calcium Carbonate 500 mg 04/26/25 09:00 04/27/25 08:31 Calcium Carbonate (Oscal) 500 Mg Tablet PO 500 mg BID CARLINE Administration Levothyroxine Sodium 50 mcg 04/26/25 06:30 04/27/25 05:27 Levothyroxine Sodium 50 Mcg Tablet PO 50 mcg DAILY@0630 CARLINE Administration Loratadine 10 mg 04/26/25 04:07 Loratadine 10 Mg Tablet PO QAM PRN allergies Losartan Potassium 25 mg 04/26/25 09:00 04/27/25 08:31 Losartan Potassium 25 Mg Tablet PO 25 mg DAILY CARLINE Administration Multivitamins Therapeutic 1 tablet 04/26/25 09:00 04/27/25 08:31 Multivitamins Therapeutic Tab (*Bkc) PO 1 tablet DAILY CRALINE Administration Ondansetron HCl 4 mg 04/26/25 19:30 04/26/25 19:50 Ondansetron Inj 4 Mg/2 Ml Vial IV PUSH 4 mg Q6H PRN Administration Nausea And Vomiting Radiology Results: ITS Impressions Head CT 04/25/25 16:19 IMPRESSION: 5 mm hyperdense focus in the right basal ganglia, may represent amorphous calcification, a tiny hemorrhagic lacunar infarct, or tiny focus of hypertensive hemorrhage. MRI of the brain could be helpful for further characterization. Results reported telephonically to Dr. Gudino by Dr. Morgan at 4:25 PM on 04/25/2025. Head/Neck CTA 04/25/25 21:59 IMPRESSION: No large vessel intracranial occlusion, high-grade intracranial stenosis, or aneurysm. No severe stenosis, occlusion, or dissection detected in the carotid arteries, however there is significant swallowing motion artifact that obscures vessel detail at the level of the right carotid bifurcation and at the level of the left distal common carotid and left carotid bifurcation. No vertebral artery occlusion, dissection, or significant stenosis. Brain MRI 04/26/25 20:33 IMPRESSION: 1. No acute intracranial process. Hyperdense foci seen at the bilateral basal ganglia on prior CT are consistent with chronic dystrophic calcifications which have been present but have progressed since earlier study dated 09/12/2005. 2. Moderate nonspecific scattered pontine and cerebral white matter T2 hyperintensity consistent with chronic small vessel ischemic disease.
[2025-04-27 12:26] VITALS: PULSE 77
--- NOTE | 2025-04-27 13:11 | PM.IMPN ---
Progress Note: A&P Assessment and Plan (1) Hypertensive urgency: Code(s): I16.0 - Hypertensive urgency Status: Acute Plan 79-year-old female with history of hypertension prevents with headache and dizziness. This is been ongoing for 3-4 days. When she checked her blood pressure today was 200 systolic. Patient presented to urgent care within refer to [facility] ER. Patient denied chest pain, nausea vomiting abdominal pain, diarrhea, change in vision, fever, cough, shortness of breath, weakness or change in sensation. She reports taking an extra half dose of her losartan. Blood pressure on arrival 200/81. After a 1 time dose of hydralazine 10 mg IV, her blood pressure greatly improved. A head CT without contrast performed demonstrated a 5 mm hyperdense focus in the right basal ganglia which could represent amorphous calcification, hemorrhagic lacunar infarct or tiny focus of hypertensive hemorrhage. Subsequently a head and neck CTA was performed which did not show any occlusions stenosis or aneurysm. Calls were made from the ER to [facility] and [facility]. Imaging was reviewed with neurologist, and ultimately they declined transfer. Reporting the unchanged focus on 2 separate scan 6 hours apart indicated it was very unlikely to be bleeding. [facility] neurologist contacted from ER. Advised admission, avoiding anticoagulation. Patient seen thereafter, with no complaints, no deficits. ----- Symptoms now resolved status post hydralazine. 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 Fall precautions. Neuro checks q.4 hours. Hold aspirin for now. Start atorvastatin. MRI brain ordered. patient presented with complaints of dizziness, initial work up was concerning a tiny hemorrhagic lacunar infarct, ER physician contacted Both [facility] and [place] neuro surgery and did nor recommend any surgical intervention, to further evaluate patient had CTA of the head and MRI of the Michael, did not show any acute injury, patient clinical symptoms have improved and will PT/OT evaluate the patient and further recommendation to follow. Patient wishes to be full code. Saline lock IV. SCDs. Subjective Date/time seen: 04/27/25 13:11 Interval history: dizziness H&P-Narrative: 79-year-old female with history of hypertension prevents with headache and dizziness. This is been ongoing for 3-4 days. When she checked her blood pressure today was 200 systolic. Patient presented to urgent care within refer to [facility] ER. Patient denied chest pain, nausea vomiting abdominal pain, diarrhea, change in vision, fever, cough, shortness of breath, weakness or change in sensation. She reports taking an extra half dose of her losartan. Blood pressure on arrival 200/81. After a 1 time dose of hydralazine 10 mg IV, her blood pressure greatly improved. A head CT without contrast performed demonstrated a 5 mm hyperdense focus in the right basal ganglia which could represent amorphous calcification, hemorrhagic lacunar infarct or tiny focus of hypertensive hemorrhage. Subsequently a head and neck CTA was performed which did not show any occlusions stenosis or aneurysm. Calls were made from the ER to [facility] and [facility]. Imaging was reviewed with neurologist, and ultimately they declined transfer. Reporting the unchanged focus on 2 separate scan 6 hours apart indicated it was very unlikely to be bleeding. [facility] neurologist contacted from ER. Advised admission, avoiding anticoagulation. Patient seen thereafter, with no complaints, no deficits. patient presented with complaints of dizziness, initial work up was concerning a tiny hemorrhagic lacunar infarct, ER physician contacted Both [facility] and [place] neuro surgery and did nor recommend any surgical intervention, to further evaluate patient had CTA of the head and MRI of the Michael, did not show any acute injury, patient clinical symptoms have improved and will PT/OT evaluate the patient and further recommendation to follow. Review of Systems Review of Systems: All systems reviewed & are unremarkable except as noted in HPI and below (Subjective/HPI) Exam Narrative: Patient is comfortable, NAD HEENT: eyes are clear and none icteric LUNGS:CTA HEART: RR S1S2 ABD: BS+, Soft and nontender Lower extremities: no edema SKIN: nonjaundiced Neuro: grossly intact. Objective Data Vital Signs Vital Signs: Vital Signs - 24 hr 04/26/25 16:00 04/26/25 16:00 04/26/25 20:00 Temperature 36.3 C L Pulse Rate 77 84 78 Respiratory Rate 20 Blood Pressure 129/77 Pulse Oximetry 100 Oxygen Delivery Fraction of Inspired Oxygen 04/26/25 20:57 04/26/25 21:23 04/27/25 00:00 Temperature 36.7 C Pulse Rate 67 104 H 69 Respiratory Rate 17 20 Blood Pressure 151/67 H Pulse Oximetry 100 97 Oxygen Delivery Room Air Fraction of Inspired Oxygen 21 04/27/25 00:00 04/27/25 04:00 04/27/25 05:31 Temperature 36.7 C Pulse Rate 69 63 74 Respiratory Rate 17 Blood Pressure 127/50 L Pulse Oximetry 97 Oxygen Delivery Fraction of Inspired Oxygen 04/27/25 08:00 04/27/25 08:00 04/27/25 12:26 Temperature Pulse Rate 100 77 Respiratory Rate Blood Pressure Pulse Oximetry 97 Oxygen Delivery Room Air Fraction of Inspired Oxygen Intake/Output Intake/Output: Intake & Output 04/24/25 04/25/25 04/26/25 04/27/25 23:59 23:59 23:59 23:59 Intake Total 1360 560 Balance 1360 560 Meds/Results Medications: Active Medications Generic Name Dose Route Start Last Admin Trade Name Freq PRN Reason Stop Dose Admin Atorvastatin Calcium 80 mg 04/26/25 09:00 04/27/25 08:31 Atorvastatin 40 Mg Tablet PO 80 mg DAILY CARLINE Administration Azelastine HCl 1 spray 04/26/25 09:00 04/27/25 08:31 Azelastine Hcl Nasal 0.1% 137 Mcg/Spr 30 Ml Btl NASAL 1 spray Q12HR CARLINE Administration Calcium Carbonate 500 mg 04/26/25 09:00 04/27/25 08:31 Calcium Carbonate (Oscal) 500 Mg Tablet PO 500 mg BID CARLINE Administration Levothyroxine Sodium 50 mcg 04/26/25 06:30 04/27/25 05:27 Levothyroxine Sodium 50 Mcg Tablet PO 50 mcg DAILY@0630 CARLINE Administration Loratadine 10 mg 04/26/25 04:07 Loratadine 10 Mg Tablet PO QAM PRN allergies Losartan Potassium 25 mg 04/26/25 09:00 04/27/25 08:31 Losartan Potassium 25 Mg Tablet PO 25 mg DAILY CARLINE Administration Multivitamins Therapeutic 1 tablet 04/26/25 09:00 04/27/25 08:31 Multivitamins Therapeutic Tab (*Bkc) PO 1 tablet DAILY CARLINE Administration Ondansetron HCl 4 mg 04/26/25 19:30 04/26/25 19:50 Ondansetron Inj 4 Mg/2 Ml Vial IV PUSH 4 mg Q6H PRN Administration Nausea And Vomiting Radiology Results: ITS Impressions Head CT 04/25/25 16:19 IMPRESSION: 5 mm hyperdense focus in the right basal ganglia, may represent amorphous calcification, a tiny hemorrhagic lacunar infarct, or tiny focus of hypertensive hemorrhage. MRI of the brain could be helpful for further characterization. Results reported telephonically to Dr. Gudino by Dr. Morgan at 4:25 PM on 04/25/2025. Head/Neck CTA 04/25/25 21:59 IMPRESSION: No large vessel intracranial occlusion, high-grade intracranial stenosis, or aneurysm. No severe stenosis, occlusion, or dissection detected in the carotid arteries, however there is significant swallowing motion artifact that obscures vessel detail at the level of the right carotid bifurcation and at the level of the left distal common carotid and left carotid bifurcation. No vertebral artery occlusion, dissection, or significant stenosis. Brain MRI 04/26/25 20:33 IMPRESSION: 1. No acute intracranial process. Hyperdense foci seen at the bilateral basal ganglia on prior CT are consistent with chronic dystrophic calcifications which have been present but have progressed since earlier study dated 09/12/2005. 2. Moderate nonspecific scattered pontine and cerebral white matter T2 hyperintensity consistent with chronic small vessel ischemic disease.
[2025-04-27 14:35] VITALS: BP 123/41; PULSE 88; RESP 18; TEMP 36.3; O2SAT 100
--- NOTE | 2025-04-27 15:15 | P.DS_ITS ---
DS: Admitting Diagnosis Discharge Date 04/27/25 Admitting Diagnosis dizziness DS: Discharge Diagnosis Discharge Diagnosis (1) Hypertensive urgency: Code(s): I16.0 - Hypertensive urgency Status: Acute Plan 79-year-old female with history of hypertension prevents with headache and dizziness. This is been ongoing for 3-4 days. When she checked her blood pressure today was 200 systolic. Patient presented to urgent care within refer to [facility] ER. Patient denied chest pain, nausea vomiting abdominal pain, diarrhea, change in vision, fever, cough, shortness of breath, weakness or change in sensation. She reports taking an extra half dose of her losartan. Blood pressure on arrival 200/81. After a 1 time dose of hydralazine 10 mg IV, her blood pressure greatly improved. A head CT without contrast performed demonstrated a 5 mm hyperdense focus in the right basal ganglia which could represent amorphous calcification, hemorrhagic lacunar infarct or tiny focus of hypertensive hemorrhage. Subsequently a head and neck CTA was performed which did not show any occlusions stenosis or aneurysm. Calls were made from the ER to [facility] and [facility]. Imaging was reviewed with neurologist, and ultimately they declined transfer. Reporting the unchanged focus on 2 separate scan 6 hours apart indicated it was very unlikely to be bleeding. [facility] neurologist contacted from ER. Advised admission, avoiding anticoagulation. Patient seen thereafter, with no compla ints, no deficits. ----- Symptoms now resolved status post hydralazine. 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 Fall precautions. Neuro checks q.4 hours. Hold aspirin for now. Start atorvastatin. MRI brain ordered. patient presented with complaints of dizziness, initial work up was concerning a tiny hemorrhagic lacunar infarct, ER physician contacted Both [facility] and [place] neuro surgery and did nor recommend any surgical intervention, to further evaluate patient had CTA of the head and MRI of the [place], did not show any acute injury, patient clinical symptoms have improved and will PT/OT evaluate the patient and further recommendation to follow. Patient wishes to be full code. Saline lock IV. SCDs. DS: Summary Hospital Course Hospital Course: patient presented with complaints of dizziness, initial work up was concerning a tiny hemorrhagic lacunar infarct, ER physician contacted Both [facility] and [place] [facility] and did nor recommend any surgical intervention, to further evaluate patient had CTA of the head and MRI of the [place], did not show any acute injury, patient clinical symptoms have improved and will PT/OT evaluate the patient and further recommendation to follow. Patient clinical symptoms have improved and will discharge today. Time Spent with Patient Time attestation: Total time spent providing and/or coordinating discharge services: Exam Narrative: Patient is comfortable, NAD HEENT: eyes are clear and none icteric LUNGS:CTA HEART: RR S1S2 ABD: BS+, Soft and nontender Lower extremities: no edema SKIN: nonjaundiced Neuro: grossly intact. Discharge Plan Discharge Attending physician on discharge: Maxine Hoyt Consulting providers: Mere Mckinnon; Sunni Gudino; Tino Stanley; Yonis Morgan; Raleigh Gabriel Discharging Clinician: Britney Esquivel Patient Disposition: Home Activity: as tolerated Diet: heart healthy Discharge Instructions: Patient to follow up with her primary care provider as soon as possible, patient is instructed if any symptoms worsen to go to nearest ER. Patient Instructions: Antibiotic Form, Hypertensive Crisis (DC) Patient Language: [place] Stand Alone Forms: General Discharge Information Follow-up/Referrals: Manasa,Kyleigh, STRATEGIC DEBRIEFING OFFICER [Primary Care Provider] - Discharge Medications: New atorvastatin 40 mg Tablet 80 mg PO DAILY Qty: 30 0RF aspirin 81 mg capsule 81 mg PO DAILY Qty: 30 0RF Continued azelastine 137 mcg (0.1 %) spray,non-aerosol 1 spray INTRANASAL Q12H albuterol sulfate 90 mcg/actuation HFA aerosol inhaler 2 puff INHALATION PRN levothyroxine 50 mcg tablet 50 mcg PO DAILY calcium carbonate [Calcium 600] 600 mg calcium (1,500 mg) tablet 600 mg PO BID Centrum Silver 0.4 mg-300 mcg- 250 mcg tablet 1 tablet PO DAILY alendronate 70 mg tablet 70 mg PO WEEKLY cetirizine [Zyrtec] 10 mg tablet 10 mg PO DAILY PRN (Reason: allergies) multivitamin Tablet 1 tablet PO DAILY losartan 25 mg tablet 25 mg PO DAILY Date of admission: 04/26/25 08:17 Primary Care Provider: ManasaKyleigh Admitting Provider: Maxine Hoyt Attending physician on admission: Britney Esquivel Condition: Stable
== END 2025-04-27 15:43 | disposition home or self-care (01) | DRG 305 ==
LOC: ANHED 20:44 → ANHIMU 04-26 00:16 → ANH2MED 04-26 18:20
PROVIDERS: General Practice; Admitting Provider General Practice; Emergency Provider Emergency Medicine; PCP Registered Nurse; Visit Provider Family Medicine
DX: I16.0 Hypertensive urgency (principal); G23.8 Other specified degenerative diseases of basal ganglia; E03.9 Hypothyroidism, unspecified; K21.9 Gastro-esophageal reflux disease without esophagitis; K57.90 Diverticulosis of intestine, part unspecified, without perforation or abscess without bleeding; M17.12 Unilateral primary osteoarthritis, left knee
CPT/HCPCS: 36415; 70450; 70496; 70498; 70553; 80053; 81001; 84484; 85025; 85610; 85730; 93005; 96374; 99213; 99291; A9270; A9577; G0378; G0463; J0360; J2405; Q9967